=== PATIENT | female | born 1950 | race African-American/Black ===

== ENCOUNTER 2016-11-13 14:03 | Inpatient (IN) ==
[2016-11-13] MEDS ORDERED: NS 1,000 ML IV PRN (14:43)
[2016-11-13 16:46] LABS: BASO% 0.1 % (0.0-0.8); EOS# 0.01 X1000 (0.0-0.7); EOS% 0.1 % (0.0-10.0); HEMATOCRIT 41.8 % (37.0-47.0); IMM GRAN# 0.05 X1000 (0.0-0.04); IMM GRAN% 0.3 % (0.0-0.5); LYMPH# 1.04 X1000 (1.2-3.4); LYMPH% 5.9 % (20.5-51.1); MANUAL DIFF NEEDED? NO; MCH 31.9 PG (27-31); MCHC 33.5 g/dL (33-37); MCV 95.2 FL (81-99); MONO# 1.04 X1000 (0.11-0.59); MONO% 5.9 % (1.7-9.3); MPV 10.1 FL (7.4-10.4); NEUT% 87.7 % (42.2-75.2); PLT 322 X1000 (130-400); RBC 4.39 XMIL (4.2-5.4)
[2016-11-13 16:57] LABS: INR 1.04; PTT 28.5 Seconds (22.0-36.0)
[2016-11-13 17:11] LABS: AGAP 13; ALKALINE PHOSPHATASE 110 U/L (32-104); BUN 17 mg/dL (8-22); CALCIUM 10.5 mg/dL (8.8-10.2); CHLORIDE 86 mmol/L (98-107); COSMO 265; GOT 30 U/L (10-30); GPT 19 U/L (10-36); POTASSIUM 3.5 mmol/L (3.5-5.1); SODIUM 130 mmol/L (136-145); TCO2 31 mmol/L (25-35); TOTAL BILIRUBIN 0.36 mg/dL (0.20-1.00)
[2016-11-13] MEDS ORDERED: ZOFRAN IV ONE ×2 (17:27→19:52)
[2016-11-13] MEDS ORDERED: NS 1,000 ML IV ONE (19:30)
[2016-11-13] MEDS ORDERED: DULCOLAX PR ONE (19:56)
--- NOTE | 2016-11-13 21:07 | Diag Imaging Result Doc PS360 ---
EXAM: CT ABD/PELVIS W/ IV CONT ONLY HISTORY: EMesis TECHNIQUE: Dose reduction protocol COMPARISON: None. FINDINGS: There is a nonspecific 16 mm hypodense area in the mid right lobe of the liver. This may simply represent a hemangioma. Normal spleen, pancreas, and right adrenal gland. There is thickening to the left adrenal gland. There is a small amount of scarring to each kidney. No solid renal mass. No hydronephrosis. There is a PEG tube within the stomach. Normal gallbladder. There is a 7.7 cm stool ball in the rectum. Prominent stool in the mid and distal colon. Normal appendix. No abscess. No free air. No abdominal aortic aneurysm. The urinary bladder is distended and appears normal. No pelvic mass. The uterus is been removed. IMPRESSION: 1.Fecal impaction 2.Nonspecific liver lesion which may simply be a hemangioma 3.Hysterectomy Electronically signed by Carl Fernandez 11/13/2016 9:04 PM
[2016-11-13] MEDS ORDERED: ATIVAN IV ONE (21:27)
--- NOTE | 2016-11-13 22:02 | HISTORY AND PHYSICAL ---
PRIMARY CARE PROVIDER: Dr. Campo. CHIEF COMPLAINT: Per the sons, vomiting perhaps with blood in it. HPI: This is a unfortunate 66-year-old female who is now lying in the ER stretcher. She is nonverbal and does not follow commands related to a CVA that she had roughly 10 years ago. She is now noted to have contractures and lives at [facility]. Family members are at bedside. The son states that the snf called them today stating that she was throwing up blood. On arrival to the emergency room, laboratory data was obtained which showed a normal hemoglobin and hematocrit. A CT of her abdomen and pelvis showed a fecal impaction. Her emesis was tested and tested positive for blood. She will be admitted for further evaluation and treatment. PAST MEDICAL HISTORY: 1. Mostly per old medical records. Some contributed by the family. 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 She now is contracted and bedbound. 2. Diabetes mellitus type 2. 3. Hypothyroidism. 4. Hyperlipidemia. 5. Pneumonia. SURGICAL HISTORY: 1. Throat surgery. 2. Hysterectomy. SOCIAL HISTORY: Patient lives at [facility]. She has for roughly the past 10 years since her CVA. Family denies alcohol, tobacco or illicit drug use or abuse. FAMILY HISTORY: Was attempted to be obtained but as noted above the patient was unable to tell any chronic health issues and the son stated he was unaware of any chronic illness in the family. ALLERGIES: No known drug allergies. HOME MEDICATIONS: 1. Sertraline 50 mg G-tube daily. 2. Levothyroxine 50 mcg G-tube daily. 3. Famotidine 40 mg G-tube daily. 4. Aspirin 81 mg G-tube daily. 5. Lactulose 30 mL per G-tube daily. 6. Fentanyl Duragesic patch 25 mcg topically every 3 days. 7. Calmoseptine ointment 1 application topically p.r.n. 8. Tylenol 650 G-tube q.4 p.r.n. 9. Calcium vitamin D combo 1 G-tube daily. 10. Vitamin D3 1000 units G-tube b.i.d. 11. Liquid protein fortifier 30 mL per G-tube daily. REVIEW OF SYSTEMS: Fourteen point review of systems could not be obtained related to patient's condition. Pertinent positives for admission was listed above in the HPI. PHYSICAL EXAMINATION: VITAL SIGNS: Pulse 125, respirations 24, blood pressure 122/71, oxygen saturation 99% on 2 L nasal cannula. GENERAL: Unfortunate 66-year-old female who is bedbound. Does not follow commands. Is nonverbal and is contracted. HEENT: Head is atraumatic, normocephalic. Pupils equal, round, reactive to light. Extraocular eye movement could not be tested as patient will not follow commands. Sclerae is anicteric. Conjunctivae is pink. Oral mucosa is dry. NECK: Supple. No JVD. Trachea is midline. CARDIAC: S1-S2 appreciated. Regular rhythm. Sinus tachycardia on monitor. No murmurs, gallops, rubs. LUNGS: Decreased bilaterally. Poor inspiratory effort. No rhonchi, wheezes or rales. Symmetrical rise and fall respirations. ABDOMEN: Soft, nondistended, nontender. Bowel sounds are hypoactive all 4 quadrants. No pulsatile mass. No organomegaly. EXTREMITIES: No clubbing, cyanosis, or edema. 2+ pedal pulses bilaterally. NEUROLOGICAL: Cranial nerves could not be tested related to the patient's baseline mentation. She does not follow commands. She is nonverbal secondary to a previous CVA. SKIN: Warm, dry, intact. Appropriate for color. No acute lesions or rash. DIAGNOSTIC DATA: CT of the abdomen and pelvis showed a fecal impaction. Chest x-ray showed a right elevated hemidiaphragm otherwise NAD. LABORATORY DATA: WBC 17.57, hemoglobin 14, hematocrit 41.8, platelet count 322,000. Coagulations within normal limits. Sodium 130, potassium 3.5, chloride 86, carbon dioxide 31, BUN 17, creatinine 0.7, glucose 145. ASSESSMENT AND PLAN: 1. Fecal impaction. The patient is bedbound from snf. A suppository was given in the emergency room. Will also place an order for a soapsuds enema. GI will also be consulted. 2. Upper gastrointestinal bleed. The patient was noted as having coffee ground emesis at the snf. It was occult positive when tested in the emergency room. Again GI will be consulted. 3. Fluid volume depletion. The patient was given a liter bolus in the emergency room. Will continue normal saline at 125 mL an hour. 4. Mild hyponatremia. This should correct with normal saline administration. Will monitor labs. 5. Leukocytosis likely react reactive related to patient's constipation. Blood cultures have been sent and are pending. A urinalysis is pending. Will treat appropriately if either positive at this time. Will not give antibiotics. 6. Nausea and vomiting. Zofran 4 mg IV q.4 hours as needed. 7. Diabetes mellitus type 2. The patient was noted as being mildly hyperglycemic however she does not appear to be. Will put on fingerstick blood sugar before meals and at bedtime. She is NPO at this time so the blood sugars will not be treated unless greater than 200. Further recommendations per patient clinical course. Dictated by JOURDAN Caballero for Jed Beck MD cc: MD Jed Ernandez MD
[2016-11-13] MEDS ORDERED: ZOFRAN IV PRN (22:10)
[2016-11-13] MEDS ORDERED: CALMOSEPTINE OINTMENT TOP PRN (22:10)
[2016-11-13] MEDS: SODIUM CHLORIDE 0.9% INJ SCH (23:21)
[2016-11-13] MEDS: PROTONIX IV SCH (23:22)
[2016-11-14] MEDS ORDERED: TYLENOL PR PRN (02:08)
[2016-11-14] MEDS ORDERED: OFIRMEV 1000 MG/ISOTONIC SOLN 1,000 MG/100 ML BOTTLE IV ONE (02:34)
[2016-11-14 03:11] LABS: URINE CULTURE NEEDED? NO; URINE MICRO REVIEW NEEDED? NO; URINE SOURCE CATH
[2016-11-14 03:15] LABS: BILIRUBIN URINE NEGATIVE (NEGATIVE); BLOOD URINE NEGATIVE (NEGATIVE); COLOR YELLOW; GLUCOSE URINE NEGATIVE (NEGATIVE); LEUKOCYTES URINE NEGATIVE (NEGATIVE); NITRITE URINE NEGATIVE (NEGATIVE); PROTEIN URINE TRACE mg/dL (NEGATIVE); SP GRAVITY URINE 1.034; TURBIDITY URINE CLEAR (CLEAR); UROBILINOGEN URINE NORMAL (NORMAL)
[2016-11-14 03:17] LABS: UR EPITHELIAL CELLS <10 /HPF (<10); URINE BACTERIA NEGATIVE /HPF; URINE RBC <10 /HPF (<10); URINE WBC <10 /HPF (<10)
[2016-11-14 06:00] LABS: MANUAL DIFF NEEDED? NO
[2016-11-14 06:05] LABS: BASO% 0.3 % (0.0-0.8); HEMATOCRIT 38.1 % (37.0-47.0); HEMOGLOBIN 12.8 g/dL (12.0-16.0); IMM GRAN# 0.03 X1000 (0.0-0.04); IMM GRAN% 0.3 % (0.0-0.5); LYMPH# 1.17 X1000 (1.2-3.4); LYMPH% 10.3 % (20.5-51.1); MCH 32.1 PG (27-31); MCHC 33.6 g/dL (33-37); MCV 95.5 FL (81-99); MONO# 1.08 X1000 (0.11-0.59); MONO% 9.5 % (1.7-9.3); MPV 9.9 FL (7.4-10.4); NEUT% 79.6 % (42.2-75.2); PLT 290 X1000 (130-400); RBC 3.99 XMIL (4.2-5.4)
--- NOTE | 2016-11-14 06:12 | Diag Imaging Result Doc PS360 ---
EXAM: CHEST-PORTABLE HISTORY: vomiting gi bleed TECHNIQUE: Portable COMPARISON: None. FINDINGS: The lungs are well expanded. Heart is not enlarged. The vessels are not distended. No pneumonia. No pleural effusions identified. IMPRESSION: Negative chest. Electronically signed by Carl Fernandez 11/14/2016 6:09 AM
[2016-11-14] MEDS: HUMALOG SUBQ SCH ×4 (06:17→20:51)
[2016-11-14] MEDS: SYNTHROID GT SCH ×2 (06:17→06:22)
[2016-11-14 06:23] LABS: AGAP 14; BUN 18 mg/dL (8-22); CALCIUM 9.3 mg/dL (8.8-10.2); CHLORIDE 98 mmol/L (98-107); COSMO 279; POTASSIUM 3.3 mmol/L (3.5-5.1); SODIUM 138 mmol/L (136-145); TCO2 26 mmol/L (25-35)
[2016-11-14] MEDS: PROTONIX IV SCH ×2 (09:45→20:25)
[2016-11-14] MEDS: SODIUM CHLORIDE 0.9% INJ SCH ×2 (09:45→20:26)
[2016-11-14] MEDS: LACTULOSE PO SCH (09:45)
[2016-11-14] MEDS ORDERED: ATIVAN IV PRN (10:29)
--- NOTE | 2016-11-14 11:03 | PROGRESS NOTE ---
DATE: 11/14/2016 SUBJECTIVE: Ms. Begum is a 66-year-old patient, resident of [facility], admitted with coffee-grounds emesis. The patient is not able to give any history. History gotten from admission history and physical and ER records. The patient had a PEG tube, history of CVA, dysphagia, expressive aphasia, significant flexion contracture, very osteoporotic bones which break very easily. Admission history and physical noted. Since admission the patient is doing fair. At times patient is tachycardic. No high-grade fever or chills. No nausea or vomiting. The patient did have some bowel movement. The patient does not seem to be in any distress. OBJECTIVE: Vital signs: Noted. Neck: Supple. No JVD. Lungs: Bibasilar crepitation. Abdomen: PEG tube is in place. Abdomen is soft. Extremities: Significant flexion contracture both upper and lower limbs. No cyanosis, clubbing. CLEANING TECHNICIAN: Alert, awake. Uncooperative for detailed exam. LAB DATA: Done this morning, WBC count 11.34, hemoglobin 12.8, hematocrit 38.1, platelet count was 290,000. The patient's potassium was 3.3, sodium 138, blood sugar 123. TSH was 2. Urinalysis results reviewed. CONSIDERATION: 1. Upper gastrointestinal bleed. Patient's hemoglobin is stable. Her actual hemoglobin is around 11-12. 2. Patient does have gastritis. 3. History of cerebrovascular accident. 4. Hypothyroidism. 5. Metabolic syndrome. 6. Significant flexion contracture. 7. Osteoporosis. 8. Chronic pain. 9. Found to have hypokalemia. PLAN: I am going to supplement potassium. We are treating her constipation. CT scan of the abdomen and pelvis results reviewed, which revealed fecal impaction, hemangioma, and hysterectomy. Overall plan discussed with the son. We are waiting for GI evaluation. cc: Wiflredo Campo MD
[2016-11-14] MEDS: NS 1,000 ML IV PRN (15:16)
[2016-11-14] MEDS: POTASSIUM CHLORIDE 10% LIQUID PO SCH (20:25)
[2016-11-15] MEDS: NS 1,000 ML IV PRN (02:48)
[2016-11-15] MEDS: SYNTHROID GT SCH (06:16)
[2016-11-15] MEDS: HUMALOG SUBQ SCH ×3 (06:17→20:24)
[2016-11-15 06:29] LABS: MANUAL DIFF NEEDED? NO
[2016-11-15 06:35] LABS: BASO% 0.4 % (0.0-0.8); EOS# 0.15 X1000 (0.0-0.7); EOS% 1.4 % (0.0-10.0); HEMATOCRIT 35.7 % (37.0-47.0); HEMOGLOBIN 11.8 g/dL (12.0-16.0); IMM GRAN# 0.02 X1000 (0.0-0.04); IMM GRAN% 0.2 % (0.0-0.5); LYMPH# 1.33 X1000 (1.2-3.4); LYMPH% 12.4 % (20.5-51.1); MCH 32.4 PG (27-31); MCHC 33.1 g/dL (33-37); MCV 98.1 FL (81-99); MONO% 9.3 % (1.7-9.3); MPV 10.2 FL (7.4-10.4); NEUT% 76.3 % (42.2-75.2); PLT 253 X1000 (130-400); RBC 3.64 XMIL (4.2-5.4)
[2016-11-15 06:51] LABS: AGAP 11; ALBUMIN 3.2 g/dL (3.5-5.0); ALKALINE PHOSPHATASE 78 U/L (32-104); BUN 12 mg/dL (8-22); CALCIUM 8.3 mg/dL (8.8-10.2); CHLORIDE 104 mmol/L (98-107); COSMO 276; GOT 29 U/L (10-30); GPT 16 U/L (10-36); SODIUM 138 mmol/L (136-145); TCO2 23 mmol/L (25-35); TOTAL PROTEIN 6.6 g/dL (6.3-8.3)
--- NOTE | 2016-11-15 07:14 | PROGRESS NOTE ---
DATE: 11/15/2016 SUBJECTIVE: Ms. Begum is doing fair. Not able to communicate. According to the nurse, patient had a good night. Her heart rate was stable. No fever or chills. No nausea or vomiting. OBJECTIVE: Vital Signs: Vital signs noted. Lungs: Few basal crepitations. CVS: S1 and S2 heard. Abdomen: Soft, scaphoid. PEG tube is in place. Extremities: Patient has significant flexion contractures of both upper limbs and lower limbs. CEMETERY WORKER: Alert, awake. Uncooperative for detailed exam. Lab Data: Done this morning, WBC count 10.71, hemoglobin 11.8, hematocrit 35.7, platelet count was 253,000. Electrolytes fairly benign. Potassium was 4, BUN 12, creatinine 0.5. Magnesium checked yesterday and was 1.7. ASSESSMENT AND PLAN: 1. Patient admitted with possible gastritis. 2. Patient does have problem with her percutaneous endoscopic gastrostomy tube. 3. Significant flexion contractures. 4. Constipation. Rn Relief Charge evaluated patient. 5. Hypokalemia, improved. We will continue current treatment and close observation. cc: Wilfredo Campo MD
--- NOTE | 2016-11-15 08:07 | EKG Report ---
Test Performed on : 11/13/2016 9:22:09 PM Test Reason : No ORder in [email or web address] Blood Pressure : / mmHG Vent. Rate : 156 BPM Atrial Rate : 156 BPM P-R Int : 094 ms QRS Dur : 062 ms QT Int : 320 ms P-R-T Axes : 041 -06 075 degrees QTc Int : 515 ms Undetermined rhythm Low voltage QRS Nonspecific ST abnormality Abnormal ECG When compared with ECG of 06-JUN-2011 23:57, Current undetermined rhythm precludes rhythm comparison, needs review Nonspecific T wave abnormality, improved in Inferior leads T wave inversion no longer evident in Anterolateral leads Unconfirmed Result
[2016-11-15] MEDS: LACTULOSE PO SCH (09:56)
[2016-11-15] MEDS: POTASSIUM CHLORIDE 10% LIQUID PO SCH ×2 (09:56→20:15)
[2016-11-15] MEDS: PROTONIX IV SCH ×2 (09:56→20:15)
--- NOTE | 2016-11-15 11:53 | PROGRESS NOTE ---
DATE: 11/15/2016 SUBJECTIVE: The patient is stable. She is noncommunicative, but she is alert and appears to be at her baseline. OBJECTIVE: Vital Signs: Temperature, T-max 99.9 degrees. Pulse 105, blood pressure 100/58, respiratory rate 20, and O2 saturation on room air 98% to 100%. Cardiovascular: RRR. Lungs: CTA. Abdomen: Nondistended. Active bowel sounds. PEG tube in place in the left upper quadrant without signs of infection. Extremities: No lower extremity edema. Contractures prominent of her hands and arms. IV in place in the right foot. Neurologic: Baseline, looks about, but has no communication. DIAGNOSTIC DATA: White count 10.7, down from 17 on admission; hemoglobin 11.8, platelets 253,000. CMP unremarkable with BUN 12, creatinine 0.5, potassium 4, sodium 138, blood sugar 131. Gastroccult positive on 11/13/2016. She is Hemoccult negative on that date, and blood cultures x2 remain negative after 48 hours. ASSESSMENT: 1. Hematemesis. 2. Fecal impaction. 3. History of cerebrovascular accident with chronic contractures and nonverbal state/bed bound. 4. Type 2 diabetes mellitus. 5. Hypothyroidism. 6. Hyperlipidemia. PLAN: Continue IV fluids. The patient to have EGD and colonoscopy per Dr. Sharma tomorrow. Continue to monitor blood sugars closely. The patient on IV PPI in the form of Protonix 40 mg every 12 hours. cc: MD Wilfredo Danielle MD
--- NOTE | 2016-11-15 12:25 | PROGRESS NOTE ---
DATE: 11/15/2016 SUBJECTIVE: The patient is looking fine, still nonverbal. Family at bedside. Patient is tolerating the tube feedings without any nausea and vomiting. We will increased to normal if she tolerates. OBJECTIVE: Vital Signs: Pulse of 90, respirations 18, blood pressure 120/70, O2 saturation 99% on room air. HEENT: Mild conjunctival pallor present. Neck: Supple. Trachea midline. Heart: Normal first and second heart sounds. Lungs: Clear. Abdomen: The PEG tube site still is getting pulled. I will need to replace it. Extremities: Evidence of CVA present. Laboratory Data: Hematocrit did drop to 38 which is a slight drop. White count has come down to 11.34. Potassium is low at 3.3. IMPRESSION AND PLAN: 1. Nausea and vomiting, most likely secondary to either urosepsis and/or G-tube displacement. 2. Percutaneous endoscopic gastrostomy tube displacement, is scheduled for EGD with replacement. 3. Questionable impaction. We will do a flexible sigmoidoscopy. 4. History of cerebrovascular accident. 5. Hypothyroidism. 6. Metabolic syndrome. 7. Chronic pain. 8. As all the electrolytes are being corrected, I will replace the tube and make sure patient does not have any impaction in the morning. cc: MD Wilfredo Hernandez MD
--- NOTE | 2016-11-15 13:45 | CONSULTATION ---
DATE OF CONSULTATION: 11/15/2016 REASON FOR CONSULTATION: Hematemesis. HISTORY OF PRESENT ILLNESS: A 66-year-old lady, nonverbal, secondary to CVA had a PEG tube and had nausea and vomiting. Throwing up some coffee-ground emesis and but hemoglobin and hematocrit are normal. CT of the abdomen showed fecal impaction and emesis was tested which was heme positive. PAST MEDICAL HISTORY: 1. CVA 10 years ago. 2. Diabetes type 2. 3. Hypothyroidism. 4. Hyperlipidemia. 5. Pneumonia. SURGICAL HISTORY: 1. Throat surgery. 2. Hysterectomy. 3. PEG tube placement. SOCIAL HISTORY: Lives at [facility]. She has no previous history of alcohol, tobacco or drug use. FAMILY HISTORY: Negative. ALLERGIES: None. HOME MEDICATIONS: [facility]: 1. Sertraline 50 daily. 2. Levothyroxine 50 mcg daily. 3. Famotidine 40 mg daily. 4. Aspirin 81 daily. 5. Lactulose 30 daily. 6. Duragesic Patch 25 tropical every 3 days. 7. Tylenol as needed. 8. Calcium, vitamin D, and nutrition liquid protein 4-5 L at 30 mL per G-tube daily. REVIEW OF SYSTEMS: Fourteen point system was attempted and could not be taken. PHYSICAL EXAMINATION: General: Reveals this unfortunate lady lying in bed, no ectasia or acute distress. She has family at bedside. Pulse 100, respirations 20, blood pressure 120/71, O2 saturation 99% on 2 L. General: Lying in bed. She is actually opening her eyes and looking at me. HEENT: Atraumatic. Normocephalic. PERRLA. No conjunctival pallor or scleral icterus. Neck: Supple. Trachea in the midline. Heart: Normal first and second heart sounds. Lungs: Clear although generalized decreased breath sounds. Abdomen: Soft, not distended. She has a PEG tube. I did notice the all the way moved, so this was dislodged. This may be causing the nausea and vomiting. This was pulled back and re-anchored but it may need to be replaced. Neurological: Evidence of focal neurological deficit present. DIAGNOSTIC DATA: CT as above. Lab data: White count 33834. Hemoglobin and hematocrit normal. Glucose 145. IMPRESSION AND PLAN: 1. Nausea and vomiting with history of hematemesis, some of this may be due to G-tube migration. Her hemoglobin and hematocrit are normal. She is getting hydration. We will review after the hydration. 2. PEG tube displacement, corrected. She needs and new NG tube. I talked to the nurse about this. 3. Dehydration being corrected. 4. Possible urosepsis, has been covered with antibiotics. 5. Fecal impaction. I could not feel anything but when we replace the PEG tube we will probably do a proctosigmoidoscopy. 6. Diabetes mellitus. We will see what the hemoglobin and hematocrit is and we will plan on doing an upper endoscopy, G- tube replacement and possibly a flexible sigmoidoscopy to rule out any high impactions. cc: MD Wilfredo Hernandez MD
[2016-11-15] MEDS: SODIUM CHLORIDE 0.9% INJ SCH (20:15)
[2016-11-16] MEDS: NS 1,000 ML IV PRN (02:52)
[2016-11-16] MEDS ORDERED: ROCEPHIN 1 GM/NS 1 GM/50 ML IVPB IV SCH (06:30)
[2016-11-16] MEDS: HUMALOG SUBQ SCH ×4 (06:38→21:53)
[2016-11-16] MEDS: DURAGESIC 25 MICROGM/HR PATCH TD SCH (06:38)
[2016-11-16] MEDS: SYNTHROID GT SCH (06:39)
--- NOTE | 2016-11-16 06:45 | PROGRESS NOTE ---
DATE: 11/16/2016 SUBJECTIVE: Ms. Begum is doing fair. Not able to communicate. She had low-grade fever around 100.6. No significant cough or expectoration. No documented nausea or vomiting. OBJECTIVE: Vital Signs: Vital signs noted. Neck: Is supple. No JVD. Lungs: Bibasilar crepitations. Heart: S1 and S2 heard. Abdomen: Soft, scaphoid. PEG tube is in place. Extremities: Patient does have flexion contracture both upper and lower limbs. BIOMATERIALS ENGINEER: The patient is awake, uncooperative for detailed exam. CONSIDERATION: Patient admitted with coffee-ground emesis. She developed fever, possibility of aspiration pneumonia cannot be ruled out. I am going to start the patient on IV antibiotics. Continue rest of the treatment. We will do septic workup today. Check appropriate labs. OVERALL PLAN: I did talk to patient's son about her condition, prognosis and plan. He understood and agreed. Her other problem includes gastritis. We do have problem with her PEG tube at times, fecal impaction and constipation. Patient is scheduled to have EGD and sigmoidoscopy. Hypothyroidism. cc: Wilfredo Campo MD
[2016-11-16 06:58] LABS: BASO% 0.2 % (0.0-0.8); EOS# 0.02 X1000 (0.0-0.7); EOS% 0.2 % (0.0-10.0); HEMATOCRIT 34.3 % (37.0-47.0); HEMOGLOBIN 11.3 g/dL (12.0-16.0); IMM GRAN# 0.03 X1000 (0.0-0.04); IMM GRAN% 0.2 % (0.0-0.5); LYMPH% 4.7 % (20.5-51.1); MANUAL DIFF NEEDED? YES; MCH 31.9 PG (27-31); MCHC 32.9 g/dL (33-37); MCV 96.9 FL (81-99); MONO# 0.67 X1000 (0.11-0.59); MONO% 5.3 % (1.7-9.3); MPV 9.6 FL (7.4-10.4); NEUT% 89.4 % (42.2-75.2); PLT 232 X1000 (130-400); RBC 3.54 XMIL (4.2-5.4)
[2016-11-16 07:03] LABS: BANDS 2 % (0-1); LYMPHS 8 % (21-51)
--- NOTE | 2016-11-16 07:27 | Diag Imaging Result Doc PS360 ---
EXAM: CHEST-PORTABLE HISTORY: fever TECHNIQUE: AP semiupright portable at 0625 COMMENT: Normal chest. IMPRESSION: Normal chest. Electronically signed by Santos Canada 11/16/2016 7:24 AM
[2016-11-16 07:51] LABS: AGAP 15; ALBUMIN 3.2 g/dL (3.5-5.0); ALKALINE PHOSPHATASE 77 U/L (32-104); BUN 11 mg/dL (8-22); CALCIUM 8.6 mg/dL (8.8-10.2); CHLORIDE 102 mmol/L (98-107); COSMO 272; GOT 28 U/L (10-30); GPT 16 U/L (10-36); MAGNESIUM 1.7 mg/dL (1.5-2.7); SODIUM 136 mmol/L (136-145); TCO2 19 mmol/L (25-35); TOTAL BILIRUBIN 0.47 mg/dL (0.20-1.00); TOTAL PROTEIN 6.5 g/dL (6.3-8.3)
[2016-11-16] MEDS: LACTULOSE PO SCH (09:55)
[2016-11-16] MEDS: PROTONIX IV SCH ×2 (09:55→21:52)
[2016-11-16] MEDS: POTASSIUM CHLORIDE 10% LIQUID PO SCH ×2 (09:56→21:53)
[2016-11-16] MEDS ORDERED: NS ONE (12:33)
[2016-11-16] MEDS ORDERED: ZOSYN ONE (12:33)
[2016-11-16] MEDS: ZOSYN 3.375 GM/NS 3.375 GM/50 ML IVPB IV SCH ×2 (13:00→17:50)
[2016-11-16 17:53] LABS: URINE MICRO REVIEW NEEDED? NO; URINE SOURCE CATH
[2016-11-16] MEDS ORDERED: LACTULOSE PO ONE (17:53)
[2016-11-16 18:06] LABS: BILIRUBIN URINE NEGATIVE (NEGATIVE); BLOOD URINE NEGATIVE (NEGATIVE); COLOR YELLOW; GLUCOSE URINE NEGATIVE (NEGATIVE); LEUKOCYTES URINE LARGE (NEGATIVE); NITRITE URINE NEGATIVE (NEGATIVE); PROTEIN URINE TRACE mg/dL (NEGATIVE); SP GRAVITY URINE 1.016; TURBIDITY URINE HAZY (CLEAR); UROBILINOGEN URINE NORMAL (NORMAL)
[2016-11-16 18:07] LABS: UR EPITHELIAL CELLS >10 /HPF (<10); URINE BACTERIA 2+ /HPF; URINE CULTURE NEEDED? YES; URINE RBC <10 /HPF (<10); URINE WBC TNTC /HPF (<10)
[2016-11-16] MEDS: SODIUM CHLORIDE 0.9% INJ SCH (21:52)
[2016-11-17] MEDS: ZOSYN 3.375 GM/NS 3.375 GM/50 ML IVPB IV SCH ×5 (01:01→18:46)
[2016-11-17] MEDS: SYNTHROID GT SCH (06:06)
[2016-11-17] MEDS: HUMALOG SUBQ SCH ×3 (06:07→18:46)
--- NOTE | 2016-11-17 07:19 | PROGRESS NOTE ---
DATE: 11/17/2016 SUBJECTIVELY: Ms. Begum and is doing fair. The patient had upper GI endoscopy, and change of PEG tube done yesterday. The patient tolerated procedure well. The patient had her PEG tube changed yesterday by repairer recreational vehicle. She tolerated procedure well. The patient is still constipated. I did rectal exam and removed some of fecal impaction. No fever or chills. The patient is not communicating. OBJECTIVE: Vital Signs: Her vital signs are noted. Neck: Supple. No JVD. Lungs: Bibasilar crepitations. Heart: S1 and S2 heard. Abdomen: Soft, scaphoid. PEG tube is in place. Extremities: The patient does have flexion contracture of upper and lower limbs. Rectal: I did rectal exam. There was formed to hard stool, some of which I removed manually. OPERATIONS MGR: Alert, awake. Not communicating. DATA: I repeated blood work yesterday. Patient did have leukocytosis with left shift. Patient was started on IV antibiotics. Electrolytes were fairly benign. BUN 11, creatinine 0.5. Urinalysis did reveal large leukocytes, too numerous to count WBC and 2+ bacteria. Urine culture is pending. I also repeated blood culture. Did another chest x-ray and it was normal chest. ASSESSMENT AND PLAN: I did talk to patient's son about the patient's condition. We are going to watch her today. Take GI opinion for her constipation. Patient is getting lactulose which will continue for her constipation. Continue rest of the medication and close observation. Her problems include: 1. Gastritis. 2. Fecal impaction. 3. Chronic pain. 4. History of cerebrovascular accident. 5. Hypothyroidism. 6. Fever. 7. Leukocytosis. 8. Urinary tract infection. I will repeat blood work again today. cc: Wilfredo Campo MD
[2016-11-17] MEDS: SODIUM CHLORIDE 0.9% INJ SCH (08:55)
[2016-11-17] MEDS: PROTONIX IV SCH ×2 (08:55→20:43)
[2016-11-17] MEDS: LACTULOSE PO SCH (08:55)
[2016-11-17] MEDS: POTASSIUM CHLORIDE 10% LIQUID PO SCH ×2 (08:55→20:43)
[2016-11-17 14:14] LABS: MANUAL DIFF NEEDED? NO
[2016-11-17 14:25] LABS: BASO% 0.2 % (0.0-0.8); EOS# 0.05 X1000 (0.0-0.7); EOS% 0.4 % (0.0-10.0); HEMATOCRIT 34.5 % (37.0-47.0); HEMOGLOBIN 11.3 g/dL (12.0-16.0); IMM GRAN# 0.02 X1000 (0.0-0.04); IMM GRAN% 0.2 % (0.0-0.5); LYMPH# 1.31 X1000 (1.2-3.4); LYMPH% 11.5 % (20.5-51.1); MCHC 32.8 g/dL (33-37); MCV 97.7 FL (81-99); MONO# 0.73 X1000 (0.11-0.59); MONO% 6.4 % (1.7-9.3); MPV 9.8 FL (7.4-10.4); NEUT% 81.3 % (42.2-75.2); PLT 220 X1000 (130-400); RBC 3.53 XMIL (4.2-5.4)
[2016-11-17] MEDS: NS 1,000 ML IV PRN (14:27)
[2016-11-17 14:45] LABS: AGAP 15; ALBUMIN 3.2 g/dL (3.5-5.0); ALKALINE PHOSPHATASE 72 U/L (32-104); BUN 12 mg/dL (8-22); CALCIUM 8.6 mg/dL (8.8-10.2); CHLORIDE 103 mmol/L (98-107); COSMO 272; GOT 25 U/L (10-30); GPT 14 U/L (10-36); POTASSIUM 4.6 mmol/L (3.5-5.1); SODIUM 136 mmol/L (136-145); TCO2 18 mmol/L (25-35); TOTAL BILIRUBIN 0.34 mg/dL (0.20-1.00); TOTAL PROTEIN 6.4 g/dL (6.3-8.3)
--- NOTE | 2016-11-17 14:54 | PROGRESS NOTE ---
DATE: 11/17/2016 SUBJECTIVE: Patient is currently resting in bed. She is nonverbal but she is awake. She had a PEG tube placement done yesterday by Dr. Sharma. She is on 30 mL/hour of PEG tube feedings. She continues to be constipated. She had a digital rectal disimpaction done this morning with Dr. Campo. She still has not had any bowel movements. She had been passing flatus. She is on lactulose twice daily. She has no documented history of fevers, rigors, or chills. No nausea or vomiting per the nursing reports. OBJECTIVE: Vital signs: Temperature 99.7 degrees, pulse rate of 130, respiratory rate 20, blood pressure 140/81, saturating 92% on 3 via nasal cannula. Her temperature has been going up. T-max was 100.6 degrees yesterday. General appearance: Moderately built, moderately nourished, lying in bed, awake but nonverbal secondary to CVA. HEENT: Pale conjunctivae. No icterus. Neck: Supple. Abdomen: PEG tube in place. No guarding. No rebound. Bowel sounds are present but are hypoactive. Extremities: No cyanosis, clubbing. Neurologic: She is awake but nonverbal. LABS: Her blood glucose is 88. Her white count yesterday was 12.69. Hemoglobin and hematocrit were 11.3 and 34.3, platelet count of 232,000. Her UA was positive for a UTI. Urine culture was suggesting more incubation is required. Blood culture x2 done yesterday have been pending. She is on Zosyn which was started yesterday. IMPRESSION AND PLAN: 1. Coffee-ground emesis and nausea and vomiting which has now resolved. She is status post PEG tube placement yesterday by Dr. Sharma. She is being monitored by the nutrition team for PEG tube feedings. 2. Constipation. Status post distal manual disimpaction by Dr. Campo. Will continue on lactulose twice daily. We will start on soapsuds enema 2 now and then once at bedtime daily. 3. We will continue on gastrointestinal prophylaxis, Protonix. 4. She will continue aspiration precautions. 5. Tachycardia. Per the primary care team. I instructed the nurse to call Dr. Campo for further workup. 6. Above plan was discussed with the patient and nurse at the bedside. All questions were answered. cc: MD Wilfredo Cadena MD
--- NOTE | 2016-11-17 15:47 | PROGRESS NOTE ---
DATE: 11/16/2016 SUBJECTIVE: The patient is doing fair. I inspected the G tube. It is again getting pulled into the antrum. There is only 1 cm of the tube left at the bifurcation of the feeding site and the site. She needs a replacement. OBJECTIVE: Vital Signs: Stable as noted. Neck: Supple. Lungs: Basil crepitations. Heart: S1 and S2. Abdomen: Soft. G-tube is not well located as above. Extremities: Flexion contractures. TOOLMAKER HELPER: Non communication. LABORATORY DATA: Hematocrit stable at the lower level at admission. She does have UTI. IMPRESSION AND PLAN: 1. Gastritis. 2. Nausea and vomiting. Possibly hematemesis from displaced gastrostomy tube. 3. Chronic pain. 4. Cerebrovascular accident. 5. Hypothyroidism. 6. Fever and leukocytosis secondary to urinary tract infection. PLAN: As far as GI is concerned the hematocrit is stable. She does have some bowel movement but she does have an impaction. Continue the lactulose. We will increase the lactulose to twice a day. I took the G tube out and G tube is replaced at bedside. A new tube was placed and showed the nurse where it should be and showed the family where it should be. I think from GI standpoint she is stable and we will give lactulose until she has a good bowel movement. cc: MD Wilfredo Hernandez MD
--- NOTE | 2016-11-17 15:51 | EKG Report ---
Test Performed on : 11/17/2016 3:25:50 PM Test Reason : Intermittent tachycardia at rest Blood Pressure : / mmHG Vent. Rate : 120 BPM Atrial Rate : 120 BPM P-R Int : 136 ms QRS Dur : 058 ms QT Int : 332 ms P-R-T Axes : 053 -26 073 degrees QTc Int : 469 ms Sinus tachycardia. Low voltage QRS Borderline ECG When compared with ECG of 13-NOV-2016 21:22, Previous ECG has undetermined rhythm, needs review Confirmed by Saul Winston MD ([id number]) on 11/17/2016 4:18:50 PM
--- NOTE | 2016-11-17 18:38 | PROGRESS NOTE ---
DATE: 11/17/2016 SUBJECTIVE: Ms. Begum had a fever, diaphoresis, tachycardia. History part was limited. Patient was in distress. Family was concerned. OBJECTIVE: We did a Cardiology consult. Patient had workup done. Her D-dimer was elevated. Lab data done at 2 o'clock reviewed. C-reactive protein 29.88. CBC results noted. PHYSICAL EXAMINATION: Neck/Lungs: Bibasilar crepitation. Heart: S1 and S2. Tachycardia. Abdomen: Soft, scaphoid. Bowel sounds present. INTERNET SALES DIRECTOR: Alert, awake, uncooperative for detailed exam. CONSIDERATION: Fever could be due to UTI. The patient is on antibiotics. Urine culture result is pending. Blood culture so far negative. Her other problem includes history of CVA, hypothyroidism, and IDDM, expressive aphasia, dysphagia, osteoporosis. Overall prognosis fair to guarded. We will continue current treatment. cc: Wilfredo Campo MD
--- NOTE | 2016-11-17 20:08 | CONSULTATION ---
DATE OF CONSULTATION: 11/17/2016 CONSULTATION REQUESTED BY: Wilfredo Campo MD REASON FOR CONSULTATION: Tachycardia. CHIEF COMPLAINT: None. HISTORY: Ms. Begum is an unfortunate 66-year-old black female who is a half-way resident for the past 8 or 9 years. The patient presented to the hospital because of vomiting, presumably including blood. The patient received a CT scan of the abdomen upon presentation that shows fecal impaction. Because of the presence of a PEG tube, they consulted Gastroenterology, and Dr. Sharma has assessed the patient and has exchanged the PEG tube. His progress note indicates that he is recommending lactulose for her fecal impaction. He also believes that the patient may have a urinary tract infection. Her urinalysis as of November 16 indicates large amount of leukocytes, too numerous to count, and 2+ bacteria. A urine culture has been requested and is still pending. The patient has been tachycardic and that prompted this consultation. The patient's EKG done at 3:25 p.m. on November 17 shows sinus tachycardia without any ischemic changes. The patient is nonverbal. She has her eyes open and seems to move her head one way or the other, but she does not really respond consistently. She has contractures of the right upper extremity, left upper extremity, and both legs. 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 This was per the 07/29/2006 discharge summary. The patient had multiple admissions to the hospital between 2006, October 2006, December 2006, October 2007, July 2008, August 2008, May 2011. On each admission, there was some issue related to cerebrovascular accident and MRI's of the head indicating lacunar strokes. Eventually at some point they inserted a PEG tube and she was sent to a half-way where she has stayed until now. They have reported diagnoses of diabetes mellitus type 2, hypothyroidism, C. difficile colitis at some point, dysphagia, and recurrent urinary tract infections. PAST SURGICAL HISTORY: Apparently she has had hysterectomy and some type of throat surgery. HOME MEDICATIONS: Her half-way medications at the time of the present admission included: 1. Sertraline 50 mg daily. 2. Levothyroxine 50 mcg daily. 3. Lactulose 30 mL daily. 4. Fentanyl patches every 3 days. 5. Famotidine 40 mg daily. 6. Vitamin D3. 7. Aspirin 81 mg daily. 8. Menthol ointment. 9. Acetaminophen p.r.n. 10.Calcium carbonate p.r.n. REVIEW OF SYSTEMS: Review of systems is not obtainable. There are no family members around. FAMILY HISTORY: From review of chart, there is no significant family history. SOCIAL HISTORY: The patient is a half-way resident. She has children. She has no prior history of alcohol or tobacco use. PHYSICAL EXAMINATION: Vital signs: Blood pressure is 111/59. Pulse 125. Respirations 20. Temperature 99.9. General: She appears to be awake, however, she does not follow commands. She is in a fixed posture with right arm flexed, left arm semi extended. Both legs have contractures. She is lying on her right side. HEENT: Shows dry oral mucosa. Neck veins are not distended. I do not hear any cervical bruits. Chest: Shows diminished breath sounds at the bases without rales. Cardiovascular: Heart sounds are regular and rhythmic. I do not hear any gallops or murmurs. Abdomen: Nondistended. She has a PEG tube in place. Bowel sounds are diminished in intensity. Extremities: Show trace edema. Pulses are markedly diminished. She has significant muscle atrophy in the legs and also contracture in the upper extremities and lower extremities. Neurologic: Basically she is all contracted, does not follow commands, eyes are open. Her eyes are divergent. IMPRESSION: 1. Patient has become tachycardic and this is probably secondary to a urinary tract infection. 2. History of multiple lacunar strokes, now with advanced vascular dementia. 3. Fecal impaction. 4. Dysphagia secondary to multiple strokes. 5. Long-term percutaneous endoscopic gastrostomy tube insertion. 6. History of diabetes. 7. History of hypertension. RECOMMENDATIONS: From a cardiology viewpoint, I will obtain an echocardiogram to assess ejection fraction. If this study is unremarkable, then no further testing is required. This patient's tachycardia is probably secondary to systemic infection or systemic inflammatory process. I will check a C reactive protein and sedimentation rate to confirm that. The patient really has extremely poor quality of life. She has been in a half-way for the past 8 years, all contracted, unable to communicate. The patient should be referred to hospice care and for sure she should be made DNR. I will leave that up to the primary service to decide. Please feel free to call us should you have any questions or concerns. cc: MD Wilfredo Yanes MD
[2016-11-17] MEDS: LACTULOSE PEG SCH (20:43)
[2016-11-18] MEDS: HUMALOG SUBQ SCH ×6 (01:14→21:33)
[2016-11-18] MEDS: ZOSYN 3.375 GM/NS 3.375 GM/50 ML IVPB IV SCH ×4 (01:21→21:33)
[2016-11-18] MEDS: SYNTHROID GT SCH ×2 (05:48→06:00)
[2016-11-18 07:01] LABS: AGAP 17; BUN 12 mg/dL (8-22); CALCIUM 8.4 mg/dL (8.8-10.2); CHLORIDE 109 mmol/L (98-107); COSMO 282; POTASSIUM 5.1 mmol/L (3.5-5.1); SODIUM 142 mmol/L (136-145); TCO2 16 mmol/L (25-35)
--- NOTE | 2016-11-18 07:28 | PROGRESS NOTE ---
DATE: 11/18/2016 SUBJECTIVELY: Ms. Begum is doing fair. Yesterday, patient was diaphoretic, had tachycardia. Etiology not clear. We did a cardiology consult. Data Entry Processor following patient with us. The patient is getting lactulose twice a day. They recommended soap suds enema. Patient had watery stool. I am going to get abdominal x-ray for further evaluation. OBJECTIVE: Vital Signs: Her T-max yesterday was 99.9. Neck: Supple. The patient does have some flexion contracture. Lungs: Bibasilar crepitations. Heart: S1 and S2 heard. At times, tachycardic. Abdomen: Soft. PEG tube is in place. AIR INTERCEPT CONTROLLER SUPERVISOR: Patient is sleeping, but arousable. Uncooperative for detailed exam. The patient does have flexion contracture, both upper and lower limb. LAB DATA: Done yesterday reviewed. Leukocytosis count 11.41, hemoglobin 11.3, hematocrit 34.5. Electrolytes done today, potassium 5.1. Her CO2 was 16, chloride 109, magnesium was 2, phosphorus 2.6. Urinalysis did reveal too numerous to count WBC. CONSIDERATIONS/PLAN: I am going to repeat abdominal x-ray. Will do stool workup. Continue rest of the treatment. Overall patient is doing fair. I am going to watch patient today. If she continues to improve, we will plan discharging her to rehab tomorrow. Her problems include: 1. Urinary tract infection. 2. Constipated. 3. Gastritis. 4. Problem with PEG tube. 5. Chronic pain. 6. Hypothyroidism. 7. Fever. cc: Wilfredo Campo MD
[2016-11-18] MEDS: PROTONIX IV SCH ×2 (08:48→21:33)
[2016-11-18] MEDS: LACTULOSE PEG SCH (08:48)
[2016-11-18] MEDS: POTASSIUM CHLORIDE 10% LIQUID PO SCH (08:48)
--- NOTE | 2016-11-18 08:50 | Diag Imaging Result Doc PS360 ---
EXAM: ABDOMEN FLAT/UPRIGHT HISTORY: pain TECHNIQUE: AP upright and supine, two views COMMENT: The upright view does not include the pelvis or lower abdomen in its entirety. The chest is unremarkable in appearance. There is colonic and small bowel gas without evidence of obstruction. There is a gastrostomy tube. No evidence organomegaly or mass is present. There are no previous studies available for comparison. IMPRESSION: Nonspecific abdomen. Electronically signed by Santos [place] 11/18/2016 8:48 AM
--- NOTE | 2016-11-18 11:30 | PROGRESS NOTE ---
DATE: 11/18/2016 SUBJECTIVE: Patient is currently resting in bed. She is status post CVA. She is nonverbal. According to the nursing records, they lowered her tube feeds 20 mL/h. She has been moving her bowels. This morning, she had soft brown formed stool. She was getting soap suds at that time. She continues on MiraLAX twice daily. No documented fever or chills today. No nausea or vomiting, per the records. Residuals were positive on the PEG tube feedings. Nutrition is following the patient. PHYSICAL EXAMINATION: Vital Signs: Temperature 98.3 degrees, pulse rate of 87 , respiratory rate 14, blood pressure 100/77, saturating 100% on 3L nasal cannula. General Appearance: Thinly built, lying in bed, in no acute distress. HEENT: Mild pallor. No icterus. Neck: Supple. Abdomen: PEG tube in place. Softer abdomen. Tympanitic on percussion. No guarding or rebound. Bowel sounds are present. Extremities: No cyanosis or clubbing. Neurologic: She was sleeping today. LABORATORIES: Hemoglobin and hematocrit 11.3 and 34.5, white count of 11.41, and platelet count of 220,000. Sodium of 142, potassium 5.1, chloride 109, bicarbonate of 16, anion gap 17, BUN of 12, creatinine of 0.5, glucose of 99, calcium 8.4, phosphorus 2.6, and magnesium 2.0. CRP 29.88, total protein 6.4, albumin of 3.2. UA is positive and urine culture showed Gram -positive cocci. Speciation is pending. IMPRESSIONS AND PLAN: 1. Anemia, likely secondary to recent coffee-grounds emesis. Emesis has now resolved. Although she continues to have PEG tube residuals, I believe it could be secondary to immobility, constipation, and ongoing urinary tract infection. Nutrition is working along, helping manage the defeat. 2. Continue on aspiration precautions. 3. Constipation. We will continue on MiraLAX twice daily and some soapsuds enemas at bedtime. 4. Cardiology consult has been called for tachycardia, which was noted yesterday. 5. Gastrointestinal prophylaxis with PPIs. 6. Hypoalbuminemia. Albumin is 3.2. Continue to watch. 7. Urinary tract infection with Gram-positive cocci more than 100,000 on the urine culture. Await further speciation. 8. The above plan of care was discussed with the patient's nurse at bedside. All questions were answered. cc: MD Wilfredo Cadena MD MTDD
[2016-11-18] MEDS: NS 1,000 ML IV PRN (14:41)
--- NOTE | 2016-11-18 18:44 | ECHO REPORT ---
ORDER DATE: 11/17/2016 INTERPRETING PHYSICIAN: Dr. Núñez REQUESTING PHYSICIAN: CLINICAL INDICATIONS: A 66-year-old female with tachycardia, stroke, hypothyroidism. This study was technically difficult. M-Mode measurements could not be obtained from the parasternal windows. M-MODE MEASUREMENTS: Right ventricle: cm. Left ventricle end diastole: cm. Left ventricle end systole: cm. Posterior wall: cm. Interventricular septum: cm. Left atrium: cm. Aortic root: cm. SUMMARY OF 2-DIMENSIONAL IMAGING: The study was technically very limited. Left ventricular systolic function appears to be hyperdynamic. Ejection fraction is estimated visually at 75%. The right ventricle is small. The atria are not dilated. The aortic valve appears to be normal. There is a dynamic gradient across the outflow tract of the left ventricle reaching a maximum of 29 mmHg. This is attributed to the hyperdynamic left ventricle. It has nothing to do with aortic stenosis. The mitral valve looks normal. Color flow mapping unremarkable. The aortic valve shows no regurgitation. The tricuspid valve was suboptimally visualized. The pulmonic valve was not well visualized. There is no pericardial effusion, masses or thrombus. IMPRESSION: In summary, this echocardiographic study was extremely difficult. The left ventricular function is hyperdynamic. There is no evidence of any gross valvular abnormality. Clinical correlation recommended. cc: MD Wilfredo Yanes MD
[2016-11-18] MEDS: SODIUM CHLORIDE 0.9% INJ SCH (21:33)
[2016-11-19] MEDS: ZOSYN 3.375 GM/NS 3.375 GM/50 ML IVPB IV SCH ×2 (01:06→08:17)
[2016-11-19] MEDS: SYNTHROID GT SCH ×2 (05:38→06:25)
[2016-11-19] MEDS: DURAGESIC 25 MICROGM/HR PATCH TD SCH (05:39)
[2016-11-19] MEDS: HUMALOG SUBQ SCH ×2 (06:39→11:47)
[2016-11-19 07:59] LABS: AGAP 10; ALBUMIN 2.7 g/dL (3.5-5.0); BUN 8 mg/dL (8-22); CALCIUM 8.2 mg/dL (8.8-10.2); CHLORIDE 101 mmol/L (98-107); COSMO 264; SODIUM 133 mmol/L (136-145); TCO2 22 mmol/L (25-35)
[2016-11-19] MEDS: PROTONIX IV SCH (08:17)
[2016-11-19] MEDS: SODIUM CHLORIDE 0.9% INJ SCH (08:17)
--- NOTE | 2016-11-19 11:53 | DISCHARGE SUMMARY ---
ADMISSION DATE: 11/13/2016 DISCHARGE DATE: 11/19/2016 FINAL DISCHARGE DIAGNOSES: 1. Urinary tract infection. 2. Upper gastrointestinal bleed most likely due to gastritis. 3. Fecal impaction. 4. Clinical dehydration. 5. Leukocytosis. 6. Noninsulin-dependent diabetes mellitus. 7. Hypothyroidism. 8. History of cerebrovascular accident with flexion contracture of upper and lower limbs. 9. Dysphagia. 10. Hypokalemia. 11. Tachycardia. HOSPITAL COURSE: Ms. Begum is a 66-year-old, patient, resident of [facility], admitted with coffee-ground emesis. The patient also had leukocytosis. The patient was evaluated in the ER. The patient is aphasic; history part was limited. Initially, the patient was tachycardic. She also had low-grade fever. The patient was admitted; GI consult obtained. The patient was hydrated. Her urinalysis did reveal UTI. Dr. Sharma changed her PEG tube. We increased her lactulose. I did fecal disimpaction. Treated patient symptomatically. The patient had episode of tachycardia and diaphoresis. Cardiology consult obtained. Echocardiogram results reviewed. Considering her overall health and echocardiogram result they decided not to pursue further intervention. Overall patient received maximum benefit of hospitalization. Her fever improved. Heart rate improved. She started having bowel movements. She is tolerating her feeding well and I am planning to discharge her to rehab today. PHYSICAL EXAMINATION: Vital Signs: Her vital signs noted which are stable. Neck: Supple. No JVD. Lungs: Bilateral good air entry present. Cardiovascular: S1 and S2 heard. Abdomen: Soft, scaphoid. PEG tube is in place. TRANSPORT OPERATIONS INSPECTOR: Alert, awake, uncooperative for neurologic exam. 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 LABORATORY DATA: Revealed last WBC count 11.41, hemoglobin 11.3, hematocrit 34.5, platelet count 220,000. Potassium was 5.1. Chloride 109, CO2 was 16. Sodium 142. Phosphorus was 2.6. C- reactive protein was 29.88. TSH was 2. Urinalysis did reveal too numerous to count WBC. Leukocyte was large. Bacteria 2+, blood culture was negative. Stool for clostridium difficile toxin was negative. A few WBCs. Urine culture grew gram-positive cocci. ID and sensitivity is pending. The patient had CT scan of the abdomen and pelvis done, which did reveal fecal impaction. Nonspecific liver lesion most likely hemangioma and hysterectomy. Abdominal x-ray was nonspecific bowel gas pattern. Chest was benign. Echocardiogram: Left ventricular function is hyperdynamic. No evidence of gross valvular abnormality. DISPOSITION: Overall the patient received maximum benefit of hospitalization. I am planning to discharge the patient to rehab. DISCHARGE INSTRUCTIONS: We will continue antibiotics. Aspiration precautions. Oxygen. Check appropriate labs. I am going to call his son and let him know about discharge planning. cc: Wilfredo Campo MD
[2016-11-19 13:41] VITALS: BP 101/53
--- NOTE | 2016-11-26 11:09 | DISCHARGE SUMMARY ---
ADMISSION DATE: 11/13/2016 DISCHARGE DATE: 11/19/2016 DISCHARGE SUMMARY ADDENDUM: The patient's functional status is significant advanced debility due to her previous stroke and flexion contracture. The patient will not qualify for sepsis. cc: Wilfredo Campo MD
--- NOTE | 2016-12-22 12:13 | PROVIDER DOCUMENTATION ---
This chart was entered by Anne Tian Scribe, acting as scribe for Paco Horta MD. HPI-General Adult - General Source: patient, family, care home records Unable to obtain history due to:: other (nonverbal) <David VazGiovani - Last Filed: 01/03/17 04:43> - General Source: patient - History of Present Illness -Gen Adult Nature of Presenting Problems: Pt is a 66 yof who came to the ED via EMS from the care home with a cc of vomiting emesis. Pt lives at the care home and has a hx of two strokes and peg surgery. Pt was seen vomiting emesis at the care home one hour before EMS was called. Location of Pain/Injury: reports: none Pain Radiation: reports: no radiation Quality of Pain: reports: none Severity: reports: mild Onset/Duration: reports: unsure, 1-3 hours ago Timing: reports: still present Associated Symptoms: reports: denies symptoms Similar Symptoms Previously?: No Recently seen or treated by another doctor?: No <Paco Horta - Last Filed: 01/06/17 17:03> - General Chief Complaint: Vomiting Time Seen by Provider: 11/13/16 14:23 Allergies/Adverse Reactions: Patient Allergies Allergy/AdvReac Type Severity Reaction Status Date / Time No Known Allergies Allergy Verified 11/13/16 15:03 Home Medications: Home Medication List Medication Instructions Recorded Confirmed Last Taken Type Aspirin 81 mg PO DAILY 11/28/15 11/13/16 11/13/16 08:00 History Famotidine [Pepcid] 40 mg GT DAILY 11/28/15 11/13/16 11/13/16 06:00 History Fentanyl 25 Microgm/Hr Patch 25 mcg TOP Q3DAYS 11/28/15 11/13/16 11/11/16 08:00 History [Duragesic 25 Microgm/Hr Patch] Lactulose 30 ml PO DAILY 11/28/15 11/13/16 11/13/16 08:00 History Levothyroxine [Synthroid] 50 microgm GT DAILY 11/28/15 11/13/16 11/13/16 06:00 History Sertraline HCl 50 mg GT DAILY 11/28/15 11/13/16 11/13/16 08:00 History Acetaminophen [Non-Aspirin] 650 mg GT Q4HR PRN 11/13/16 11/13/16 Unknown History Calcium Carbonate/Vitamin D3 1 each GT BID 11/13/16 11/13/16 11/13/16 08:00 History [Calcium 600 + Vit D Tablet] Cholecalciferol (Vit D3) [Vitamin 1,000 unit GT BID 11/13/16 11/13/16 11/13/16 08:00 History D3] Menthol/Zinc Oxide Ointment 1 applicatn TOP PRN PRN 11/13/16 11/13/16 11/13/16 07:00 History [Calmoseptine Ointment] Protein Hydrolysate,Milk [Liquid 30 ml GT DAILY 11/13/16 11/13/16 11/13/16 08: 00 History Protein Fortifier] Sulfamethoxazole/Trimethoprim 1 each PO BID #10 tablet 11/19/16 Unknown Rx [Bactrim Ds Tablet] Review of Systems - Adult - REVIEW OF SYSTEMS - ADULT ROS:: unobtainable per condition Constitutional: reports: see HPI <David Vaz - Last Filed: 01/03/17 04:43> - REVIEW OF SYSTEMS - ADULT ROS:: unobtainable per condition Constitutional: denies: fever Eyes: reports: no symptoms reported Ears, Nose, Mouth & Throat: reports: no symptoms reported Cardiovascular: reports: no symptoms reported Respiratory: reports: no symptoms reported Gastrointestinal: reports: hematemesis, vomiting (emesis). denies: diarrhea Genitourinary: reports: no symptoms reported Musculoskeletal: reports: no symptoms reported Integumentary: reports: no symptoms reported Neurological: reports: no symptoms reported Psychiatric: reports: no symptoms reported Endocrine: reports: no symptoms reported Hematologic/Lymphatic: reports: no symptoms reported Allergic/Immunologic: reports: no symptoms reported All Other Systems: Reviewed and Negative <Paco Horta - Last Filed: 01/06/17 17:03> Past History - Adult - PAST MEDICAL HISTORY-ADULT Review of Records: reports: Old Records Reviewed, Nursing Assessment Review, Medications Reviewed, Social history reviewed & non-contributory. Major Childhood Illnesses: reports: history unknown <David Vaz - Last Filed: 01/03/17 04:43> - PAST MEDICAL HISTORY-ADULT Review of Records: reports: Nursing Assessment Review Major Childhood Illnesses: reports: denies history Cardiovascular: reports: hyperlipidemia Respiratory: reports: denies history Gastrointestinal: reports: GERD Obstetrical/Gynecological: reports: denies history Genitourinary: reports: denies history Musculoskeletal: reports: denies history Neurological: reports: CVA, stroke deficits (cannot communicate/contactures) Endocrine/Immune: reports: Diabetes, thyroid disorder Other Conditions: reports: denies history - PRIOR SURGERIES/PROCEDURES Surgical/Procedure History: reports: hysterectomy, other (throat surgery) - IMMUNIZATION STATUS Childhood Immunizations: See Nurse Assessment Flu Vaccine: See Nurse Assessment - FAMILY HISTORY Family History: reviewed, not pertinent <Paco Horta - Last Filed: 01/06/17 17:03> Physical Exam-General - PHYSICAL EXAM-ADULT Exam Limited by: nonverbal - CONSTITUTIONAL General Appearance: alert, no apparent distress, other (nonverbal) - EYES Eyes: other (clear) - HEAD, EARS, NOSE, MOUTH & THROAT HENMT: other (clear) - NECK Neck: supple - RESPIRATORY Respiratory: no respiratory distress, no accessory muscle use - CARDIOVASCULAR Cardiovascular: regular rate, rhythm - GASTROINTESTINAL (ABDOMEN) Abdominal Exam: non tender, soft - LYMPHATIC Lymphatic: no adenopathy - MUSCULOSKELETAL Back Exam: normal inspection Extremity: non-tender Peripheral Pulses: radial (R): 2+, radial (L): 2+ - SKIN Integumentary: normal color - NEUROLOGIC Neurologic: other (nonfocal,uncooperative to exam) <David Vaz - Last Filed: 01/03/17 04:43> - PHYSICAL EXAM-ADULT Initial Vital Signs Reviewed: Yes - CONSTITUTIONAL General Appearance: alert, no apparent distress <Paco Horta - Last Filed: 01/06/17 17:03> Progress - PLAN OF CARE/RESULTS Progress/Plan/Lab Results: Vital Signs - 8 hr 11/13/16 14:44 11/13/16 16:20 11/13/16 18:00 Pulse Rate 125 H 121 H 118 H Respiratory Rate 18 24 25 H Blood Pressure 140/96 112/73 107/82 O2 Sat by Pulse Oximetry 98 99 99 11/13/16 19:20 Stool Occult Blood ([place]) - Final Stool 11/13/16 16:21 Gastric Occult Blood - Final Emesis Laboratory Results - last 24 hr 11/13/16 11/13/16 11/13/16 16:25 16:25 16:25 WBC 17.57 H RBC 4.39 Hgb 14.0 Hct 41.8 MCV 95.2 MCH 31.9 H MCHC 33.5 RDW Std Deviation 14.0 Plt Count 322 MPV 10.1 Immature Gran % (Auto) 0.3 Neut % (Auto) 87.7 H Lymph % (Auto) 5.9 L [place] % (Auto) 5.9 Eos % (Auto) 0.1 Baso % (Auto) 0.1 Immature Gran # (Auto) 0.05 H Neut # (Auto) 15.41 H Lymph # (Auto) 1.04 L [place] # (Auto) 1.04 H Eos # (Auto) 0.01 Baso # (Auto) 0.02 PT 11.0 INR 1.04 PTT (Actin FS) 28.5 Sodium 130 L Potassium 3.5 Chloride 86 L Carbon Dioxide 31 Anion Gap 13 BUN 17 Creatinine 0.7 Estimated GFR/1.73 m2 > 60 BUN/Creatinine Ratio 24 Glucose 145 H Calculated Osmolality 265 Calcium 10.5 H Total Bilirubin 0.36 AST 30 ALT 19 Alkaline Phosphatase 110 H Total Protein 8.0 Albumin 4.0 Globulin 4.0 Albumin/Globulin Ratio 1.0 Plasma Lactate Blood Type Antibody Screen 11/13/16 11/13/16 16:25 18:27 WBC RBC Hgb Hct MCV MCH MCHC RDW Std Deviation Plt Count MPV Immature Gran % (Auto) Neut % (Auto) Lymph % (Auto) [place] % (Auto) Eos % (Auto) Baso % (Auto) Immature Gran # (Auto) Neut # (Auto) Lymph # (Auto) [place] # (Auto) Eos # (Auto) Baso # (Auto) PT INR PTT (Actin FS) Sodium Potassium Chloride Carbon Dioxide Anion Gap BUN Creatinine Estimated GFR/1.73 m2 BUN/Creatinine Ratio Glucose Calculated Osmolality Calcium Total Bilirubin AST ALT Alkaline Phosphatase Total Protein Albumin Globulin Albumin/Globulin Ratio Plasma Lactate 1.4 Blood Type O POSITIVE Antibody Screen NEGATIVE Orders Category Date Time Status Saline Loc DIRECTED Care 11/13/16 14:43 Active CHEST-PORTABLE [RAD] Stat Exams 11/13/16 19:[address] ABD/PELVIS W/ IV CONT ONLY [CT] Routine Exams 11/13/16 16:33 Taken BLOOD CULTURE [BLDCUL] Stat Lab 11/13/16 18:34 Results CBC WITH ELECTRONIC DIFF [HEME] Stat Lab 11/13/16 16:25 Completed COMPREHENSIVE METABOLIC PANEL [CHEM] Stat Lab 11/13/16 16:25 Completed LACTATE, PLASMA [CHEM] Stat Lab 11/13/16 18:27 Completed OCCULT BLOOD NON-FECES Stat Lab 11/13/16 16:21 Completed OCCULT BLOOD SCREENING [STOOL] Stat Lab 11/13/16 19:20 Completed PROTIME WITH INR [COAG] Stat Lab 11/13/16 16:25 Completed PTT [COAG] Stat Lab 11/13/16 16:25 Completed TYPE & SCREEN [BBK] Stat Lab 11/13/16 16:25 Completed 0.9% Sodium Chloride Inj [Ns] 1,000 ml Med 11/13/16 14:43 Active IV 125 mls/hr 0.9% Sodium Chloride Inj [Ns] 1,000 ml Med 11/13/16 19:30 Active IV 999 mls/hr Ondansetron [Zofran] Med 11/13/16 17:27 Discontinued 4 mg IV NOW ONE Result Diagrams: 11/17/16 14:09 11/19/16 07:27 - CONSULTS/PCP/HOSPITALIST Notification #1 *Consult/PCP/Hospitalist*: Dr. Beck, hospitalist Time Discussed: 19:47 Consult Disposition: Will see in ED <David Vaz - Last Filed: 01/03/17 04:43> - PLAN OF CARE/RESULTS Progress/Plan/Lab Results: Laboratory Results - last 24 hr 11/13/16 11/13/16 11/13/16 03:10 16:25 16:25 WBC 17.57 H RBC 4.39 Hgb 14.0 Hct 41.8 MCV 95.2 MCH 31.9 H MCHC 33.5 RDW Std Deviation 14.0 Plt Count 322 MPV 10.1 Immature Gran % (Auto) 0.3 Neut % (Auto) 87.7 H Lymph % (Auto) 5.9 L [place] % (Auto) 5.9 Eos % (Auto) 0.1 Baso % (Auto) 0.1 Immature Gran # (Auto) 0.05 H Neut # (Auto) 15.41 H Lymph # (Auto) 1.04 L [place] # (Auto) 1.04 H Eos # (Auto) 0.01 Baso # (Auto) 0.02 PT INR PTT (Actin FS) Sodium 130 L Potassium 3.5 Chloride 86 L Carbon Dioxide 31 Anion Gap 13 BUN 17 Creatinine 0.7 Estimated GFR/1.73 m2 > 60 BUN/Creatinine Ratio 24 Glucose 145 H Calculated Osmolality 265 Calcium 10.5 H Total Bilirubin 0.36 AST 30 ALT 19 Alkaline Phosphatase 110 H Troponin T Total Protein 8.0 Albumin 4.0 Globulin 4.0 Albumin/Globulin Ratio 1.0 Plasma Lactate Urine Source CATH Urine Color YELLOW Urine Turbidity CLEAR Urine pH 8.0 Ur Specific [place] 1.034 Urine Protein TRACE A Ur Glucose (Stick) NEGATIVE Ur Ketones (Stick) NEGATIVE Urine Blood NEGATIVE Urine Nitrite NEGATIVE Urine Bilirubin NEGATIVE Urobilinogen Dipstick NORMAL Urine Leukocytes NEGATIVE Urine WBC (Auto) <10 Urine RBC (Auto) <10 U Epithel Cells (Auto) <10 Urine Bacteria (Auto) NEGATIVE Blood Type Antibody Screen 11/13/16 11/13/16 11/13/16 16:25 16:25 18:27 WBC RBC Hgb Hct MCV MCH MCHC RDW Std Deviation Plt Count MPV Immature Gran % (Auto) Neut % (Auto) Lymph % (Auto) [place] % (Auto) Eos % (Auto) Baso % (Auto) Immature Gran # (Auto) Neut # (Auto) Lymph # (Auto) [place] # (Auto) Eos # (Auto) Baso # (Auto) PT 11.0 INR 1.04 PTT (Actin FS) 28.5 Sodium Potassium Chloride Carbon Dioxide Anion Gap BUN Creatinine Estimated GFR/1.73 m2 BUN/Creatinine Ratio Glucose Calculated Osmolality Calcium Total Bilirubin AST ALT Alkaline Phosphatase Troponin T Total Protein Albumin Globulin Albumin/Globulin Ratio Plasma Lactate 1.4 Urine Source Urine Color Urine Turbidity Urine pH Ur Specific [place] Urine Protein Ur Glucose (Stick) Ur Ketones (Stick) Urine Blood Urine Nitrite Urine Bilirubin Urobilinogen Dipstick Urine Leukocytes Urine WBC (Auto) Urine RBC (Auto) U Epithel Cells (Auto) Urine Bacteria (Auto) Blood Type O POSITIVE Antibody Screen NEGATIVE 11/13/16 18:35 WBC RBC Hgb Hct MCV MCH MCHC RDW Std Deviation Plt Count MPV Immature Gran % (Auto) Neut % (Auto) Lymph % (Auto) [place] % (Auto) Eos % (Auto) Baso % (Auto) Immature Gran # (Auto) Neut # (Auto) Lymph # (Auto) [place] # (Auto) Eos # (Auto) Baso # (Auto) PT INR PTT (Actin FS) Sodium Potassium Chloride Carbon Dioxide Anion Gap BUN Creatinine Estimated GFR/1.73 m2 BUN/Creatinine Ratio Glucose Calculated Osmolality Calcium Total Bilirubin AST ALT Alkaline Phosphatase Troponin T < 0.010 Total Protein Albumin Globulin Albumin/Globulin Ratio Plasma Lactate Urine Source Urine Color Urine Turbidity Urine pH Ur Specific [place] Urine Protein Ur Glucose (Stick) Ur Ketones (Stick) Urine Blood Urine Nitrite Urine Bilirubin Urobilinogen Dipstick Urine Leukocytes Urine WBC (Auto) Urine RBC (Auto) U Epithel Cells (Auto) Urine Bacteria (Auto) Blood Type Antibody Screen Orders Category Date Time Status Admit - [facility] Routine AdmDCTranf 11/13/16 22:10 Ordered Activity - Strict Bedrest ORDERED Care 11/13/16 22:10 Active Apply Mechanical Device [QM] ORDERED Care 11/13/16 22:10 Active Intake and Output-Strict ORDERED Care 11/13/16 22:10 Active Nursing- MD Consult Request Care 11/13/16 22:10 Active Saline Loc DIRECTED Care 11/13/16 14:43 Active Soap Suds Enema DIRECTED Care 11/13/16 22:10 Active Vital Signs Order Q6HR Care 11/13/16 22:10 Active Physician/Provider Consults Routine Cons 11/14/16 08:00 Ordered NPO Diet 11/13/16 20:47 Active CHEST-PORTABLE [RAD] Stat Exams 11/13/16 19:[address] ABD/PELVIS W/ IV CONT ONLY [CT] Routine Exams 11/13/16 16:33 Completed BASIC METABOLIC PANEL [CHEM] Routine Lab 11/14/16 05:45 Completed BLOOD CULTURE [BLDCUL] Stat Lab 11/13/16 18:34 Results CBC WITH DIFF [HEME] Routine Lab 11/14/16 05:45 Completed CBC WITH ELECTRONIC DIFF [HEME] Stat Lab 11/13/16 16:25 Completed COMPREHENSIVE METABOLIC PANEL [CHEM] Stat Lab 11/13/16 16:25 Completed LACTATE, PLASMA [CHEM] Stat Lab 11/13/16 18:27 Completed OCCULT BLOOD NON-FECES Stat Lab 11/13/16 16:21 Completed OCCULT BLOOD SCREENING [STOOL] Stat Lab 11/13/16 19:20 Completed PROTIME WITH INR [COAG] Stat Lab 11/13/16 16:25 Completed PTT [COAG] Stat Lab 11/13/16 16:25 Completed TSH Routine Lab 11/14/16 05:45 Completed TYPE & SCREEN [BBK] Stat Lab 11/13/16 16:25 Completed UA NIMS W/REFLEX CULT [URINALYSIS] Stat Lab 11/13/16 03:10 Completed 0.9% Sodium Chloride Inj [Ns] 1,000 ml Med 11/13/16 14:43 Discontinued IV 125 mls/hr 0.9% Sodium Chloride Inj [Ns] 1,000 ml Med 11/13/16 19:30 Discontinued IV 999 mls/hr Bisacodyl [Dulcolax] Med 11/13/16 19:56 Discontinued 10 mg UT NOW ONE Fentanyl 25 Microgm/Hr Patch [Duragesic 25 Microgm/Hr Med 11/16/16 06:00 Active Patch] 1 each TD Q3DAYS Lactulose Med 11/14/16 09:00 Active 30 ml PO DAILY Levothyroxine [Synthroid] Med 11/14/16 07:00 Active 50 microgm GT DAILY@0700 Menthol/Zinc Oxide Ointment [Calmoseptine Ointment] Med 11/13/16 22:10 Active 1 gm TOP PRN PRN Ondansetron [Zofran] Med 11/13/16 17:27 Discontinued 4 mg IV NOW ONE Ondansetron [Zofran] Med 11/13/16 19:52 Discontinued 4 mg IV NOW ONE Ondansetron [Zofran] Med 11/13/16 22:10 Active 4 mg IV Q4H PRN PRN Pantoprazole [Protonix] Med 11/13/16 22:10 Active 40 mg IV Q12H Sodium Chloride 0.9% Med 11/13/16 22:10 Active 10 ml INJ DIRECTED Telemetry [OM.EQ] Routine Oth 11/13/16 22:10 Active Physical Therapy Eval/Treatment [OM.PT] Routine Ther 11/13/16 22:10 Active Transfer/Admit Order [TRANSFER] Routine Transfer 11/13/16 20:44 Completed Result Diagrams: 11/17/16 14:09 11/19/16 07:27 - CHANGE OF SHIFT REPORT (ED Provider) Report Given and Care Transferred to:: Dr. Vaz Time of Transfer: 17:54 Items Pending: CT/MRI Results <Paco Horta - Last Filed: 01/06/17 17:03> Departure - Departure Time of Disposition Decision: 21:05 Certified Medical Emergency: Emergent - Critical Care Note This patient required my direct & personal management of CC.: No <David Vaz - Last Filed: 01/03/17 04:43> - Departure Date of Disposition Decision: 11/13/16 Certified Medical Emergency: Emergent <Paco Horta - Last Filed: 01/06/17 17:03> - Departure DIAGNOSIS: Fecal impaction, Dehydration, Tachycardia Leukocytosis Qualifiers: Leukocytosis type: unspecified Qualified Code(s): D72.829 - Elevated white blood cell count, unspecified Disposition: ADMITTED INPATIENT 09 Condition: Stable Attestation - Physician/ PAUL Attestation Patient care was provided by Advanced Practice Provider:: Yes Advanced Practice Provider documentation review:: The Mid-level provider documentation, treatment plan and medical decision making was reviewed by the physician who agrees with all treatment and medical decision making by the MLP. The physician spent face to face time with patient:: Yes Advanced Practice Provider documentation review:: The physician spent face to face time with this patient and agrees with all MLP documentation, treatment, and medical decision making by the MLP. See provider notes for further information. <David Vaz - Last Filed: 01/03/17 04:43> - Physician/ PAUL Attestation Patient care was provided by Advanced Practice Provider:: No <Paco Horta - Last Filed: 01/06/17 17:03> This chart was documented by the indicated scribe, (Anne Tian Scribe) and accurately reflects the services I performed and decisions made by me, Paco Horta MD, as attested by the provider's signature.
== END 2016-11-19 13:51 ==
LOC: ED 14:03 → 3N 21:07 → SUATTDRO 21:07
PROVIDERS: ADMIT Internal Medicine; ATTEND Internal Medicine

== ENCOUNTER 2018-08-27 21:23 | Inpatient (IN) ==
[2018-08-27 22:12] LABS: BASO# 0.01 X1000 (0.0-0.2); BASO% 0.1 % (0.0-0.8); HEMATOCRIT 33.1 % (37.0-47.0); IMM GRAN# 0.02 X1000 (0.0-0.04); IMM GRAN% 0.1 % (0.0-0.5); LYMPH# 0.51 X1000 (1.2-3.4); LYMPH% 3.7 % (20.5-51.1); MCHC 33.2 g/dL (33-37); MCV 96.2 FL (81-99); MONO# 0.68 X1000 (0.11-0.59); MONO% 4.9 % (1.7-9.3); MPV 10.7 FL (7.4-10.4); NEUT# 12.72 X1000 (1.4-6.5); NEUT% 91.2 % (42.2-75.2); PLT 191 X1000 (130-400); RBC 3.44 XMIL (4.2-5.4); RDW 13.4 % (11.5-14.5); WBC 13.94 X1000 (4.8-10.8)
[2018-08-27 22:24] LABS: ESTIMATED GFR > 60
[2018-08-27 22:25] LABS: INR 1.13; PROTIME 15.4 Seconds (11.0-16.0); PTT 34.6 Seconds (22.3-41.8)
[2018-08-27 22:27] LABS: AGAP 14; ALB/GLOB RATIO 1.3; ALBUMIN 3.7 g/dL (3.5-5.0); ALKALINE PHOSPHATASE 88 U/L (32-104); BUN 23 mg/dL (8-22); CALCIUM 8.9 mg/dL (8.8-10.2); CHLORIDE 88 mmol/L (98-107); CK PROFILE 131 U/L (24-173); COSMO 268; CREATININE 0.6 mg/dL (0.5-0.9); GLUCOSE 200 mg/dL (70-104); GOT 35 U/L (10-30); GPT 19 U/L (10-36); POTASSIUM 4.4 mmol/L (3.5-5.1); SODIUM 129 mmol/L (136-145); TCO2 27 mmol/L (25-35); TOTAL BILIRUBIN 0.37 mg/dL (0.20-1.00); TOTAL PROTEIN 6.5 g/dL (6.3-8.3)
[2018-08-27 23:43] LABS: URINE SOURCE CLEAN CATCH
[2018-08-27 23:59] LABS: BILIRUBIN URINE NEGATIVE (NEGATIVE); BLOOD URINE SMALL (NEGATIVE); COLOR YELLOW; GLUCOSE URINE NEGATIVE (NEGATIVE); KETONE URINE NEGATIVE (NEGATIVE); LEUKOCYTES URINE LARGE (NEGATIVE); NITRITE URINE NEGATIVE (NEGATIVE); PROTEIN URINE 70 mg/dL (NEGATIVE); SP GRAVITY URINE 1.012; TURBIDITY URINE HAZY (CLEAR); UROBILINOGEN URINE NORMAL (NORMAL)
[2018-08-28 00:09] LABS: UR EPITHELIAL CELLS >10 /HPF (<10); URINE BACTERIA 4+ /HPF; URINE WBC TNTC /HPF (<10)
[2018-08-28 00:14] LABS: URINE CASTS NONE SEEN; URINE CRYSTALS NONE SEEN; URINE SMALL ROUND CELLS RENAL PRESENT; URINE YEAST NONE SEEN
[2018-08-28] MEDS ORDERED: TYLENOL LIQUID PEG ONE (00:37)
[2018-08-28] MEDS ORDERED: ZOSYN 3.375 GM in NS 50 ML IV ONE (00:40)
[2018-08-28] MEDS ORDERED: NS 1,000 ML IV ONE (00:42)
--- NOTE | 2018-08-28 01:22 | PROVIDER DOCUMENTATION ---
This chart was entered by Meenu Workman Scribe, acting as scribe for Lane Blake MD. HPI-Fever - General Chief Complaint: Possible Sepsis-D Stated Complaint: sob/congestion Time Seen by Provider: 08/27/18 21:59 Source: RN/ Allergies/Adverse Reactions: Patient Allergies Allergy/AdvReac Type Severity Reaction Status Date / Time No Known Allergies Allergy Verified 11/13/16 15:03 Home Medications: Home Medication List Medication Instructions Recorded Confirmed Last Taken Type Aspirin 81 mg GT DAILY 11/28/15 08/28/18 08/27/18 08:00 History Famotidine [Pepcid] 20 mg GT DAILY 11/28/15 08/28/18 08/27/18 08:00 History Fentanyl 25 Microgm/Hr Patch 25 mcg TOP Q3DAYS 11/28/15 08/28/18 08/26/18 08:00 History [Duragesic 25 Microgm/Hr Patch] Lactulose 30 ml GT DAILY 11/28/15 08/28/18 08/27/18 08:00 History Levothyroxine [Synthroid] 50 microgm GT DAILY 11/28/15 08/28/18 08/27/18 06:00 History Sertraline HCl 50 mg GT DAILY 11/28/15 08/28/18 08/27/18 08:00 History Acetaminophen [Non-Aspirin] 650 mg GT Q4HR PRN 11/13/16 08/28/18 Unknown History Calcium Carbonate/Vitamin D3 1 each GT BID 11/13/16 08/28/18 08/27/18 08:00 H istory [Calcium 600 + Vit D Tablet] Cholecalciferol (Vit D3) [Vitamin 1,000 unit GT BID 11/13/16 08/28/18 08/27/18 History D3] Menthol/Zinc Oxide Ointment 1 applicatn TOP PRN PRN 11/13/16 08/28/18 11/13/16 07:00 History [Calmoseptine Ointment] Multivits W-Fe,Other Min [Centrum] 15 ml PEG DAILY 05/27/17 08/28/18 08/27/18 08:00 History Protein Hydrolysate,Milk [Liquid 30 ml PEG BID 05/27/17 08/28/18 08/27/18 08:00 History Protein Fortifier] Iron Carbonyl/Ascorbic Acid 1 ea GT BID #60 tab 06/02/17 08/28/18 08/27/18 08:00 Rx [Icar-C] Lactobacillus Rhamnosus GG 1 ea GT BID 08/28/18 08/28/18 08/27/18 08:00 History [Culturelle] Menthol/Zinc Oxide Ointment 1 applicatn TOP BID 08/28/18 08/28/18 08/27/18 07:00 History [Calmoseptine Ointment] Nut.tx.gluc.intoler,Lac-Fr,Soy 1,500 ml GT BID 08/28/18 08/28/18 08/27/18 07:00 History [Glucerna 1.2 Vince] - History of Present Illness-Fever Nature of Presenting Problem: 68 yof brought to ED via ems from [facility]. pt is 2L o2 depende nt, has a bad cough, congestion with fever of 103.2 in er. pt has a peg tube. She is nonverbal and bedbound Fever Severity/Quality: reports: greater than 102 F Onset/Duration: reports: unsure Review of Systems - Adult - REVIEW OF SYSTEMS - ADULT ROS:: unobtainable per condition Constitutional: reports: other (unobtainable given non verbal status ; no accompanying family nor staff) All Other Systems: Reviewed and Negative Past History - Adult - PAST MEDICAL HISTORY-ADULT Review of Records: reports: Old Records Reviewed, Nursing Assessment Review, Medications Reviewed, Social history reviewed & non-contributory. Major Childhood Illnesses: reports: denies history Cardiovascular: reports: hyperlipidemia Gastrointestinal: reports: GERD Neurological: reports: CVA, stroke deficits (cannot communicate/contactures) Endocrine/Immune: reports: Diabetes, thyroid disorder - PRIOR SURGERIES/PROCEDURES Surgical/Procedure History: reports: hysterectomy, other (throat surgery, feeding tube) - IMMUNIZATION STATUS Childhood Immunizations: See Nurse Assessment Flu Vaccine: See Nurse Assessment - FAMILY HISTORY Family History: reviewed, not pertinent Physical Exam-General - PHYSICAL EXAM-ADULT Initial Vital Signs Reviewed: Yes - CONSTITUTIONAL General Appearance: lethargic (non verbal , bedridden), other (frail) - EYES Eyes: pink conjunctivae, other ( does not open eyes and tries to shut them off when attempt to open them) - HEAD, EARS, NOSE, MOUTH & THROAT HENMT: moist mucous membranes - RESPIRATORY Respiratory: respiratory distress (on oxygen via nasal canulla), decreased breath sounds (bialt), rales, other (on 2L of o2 94). negative: lungs clear, normal breath sounds - CARDIOVASCULAR Cardiovascular: tachycardia. negative: bradycardia, extra beats, friction rub - GASTROINTESTINAL (ABDOMEN) Abdominal Exam: other (peg tube). negative: guarding, rigid, rebound - LYMPHATIC Lymphatic: no adenopathy - SKIN Integumentary: normal color, normal turgor, warm/dry. negative: cyanosis, diaphoresis, decubitus - NEUROLOGIC Neurologic: other (nonverbal; spasticity in all 4 extremities) - PSYCHIATRIC Psych/Mental Status: disoriented x 3, other (nonverbal) Progress - PLAN OF CARE/RESULTS Progress/Plan/Lab Results: Vital Signs - 8 hr 08/27/18 21:30 08/27/18 21:31 08/27/18 21:35 Temperature Pulse Rate 130 H Respiratory Rate 21 Blood Pressure 105/64 117/72 O2 Sat by Pulse Oximetry 94 L 91 L 95 08/27/18 21:38 08/27/18 21:40 08/27/18 21:45 Temperature 103.2 F H Pulse Rate 133 H 137 H 111 H Respiratory Rate 21 28 H 23 Blood Pressure 105/64 107/71 O2 Sat by Pulse Oximetry 94 L 95 96 08/27/18 21:47 08/27/18 21:48 08/27/18 21:50 Temperature Pulse Rate 92 H 89 Respiratory Rate 19 8 L 25 H Blood Pressure 102/81 108/94 O2 Sat by Pulse Oximetry 97 93 L 92 L 08/27/18 21:52 08/27/18 22:00 08/27/18 22:03 Temperature Pulse Rate 107 H 99 H Respiratory Rate 19 28 H 20 Blood Pressure 107/69 103/67 O2 Sat by Pulse Oximetry 94 L 92 L 94 L 08/27/18 22:10 08/27/18 22:18 08/27/18 22:20 Temperature Pulse Rate 131 H 128 H Respiratory Rate 26 H 26 H Blood Pressure 112/58 O2 Sat by Pulse Oximetry 91 L 97 92 L 08/27/18 22:30 08/27/18 22:33 08/27/18 22:40 Temperature Pulse Rate 91 H 136 H Respiratory Rate 25 H 24 23 Blood Pressure 126/69 O2 Sat by Pulse Oximetry 94 L 94 L 94 L 03/10/19 22:48 08/27/18 22:50 08/27/18 23:00 Temperature Pulse Rate 186 H 243 H 212 H Respiratory Rate 26 H 21 27 H Blood Pressure 127/77 O2 Sat by Pulse Oximetry 92 L 94 L 92 L 08/27/18 23:03 08/27/18 23:10 08/27/18 23:18 Temperature Pulse Rate 222 H 149 H 217 H Respiratory Rate 26 H 26 H 22 Blood Pressure 103/69 102/73 O2 Sat by Pulse Oximetry 93 L 91 L 91 L 08/27/18 23:20 08/27/18 23:30 08/28/18 00:32 Temperature Pulse Rate 183 H 235 H 151 H Respiratory Rate 25 H 23 18 Blood Pressure 126/77 O2 Sat by Pulse Oximetry 89 L 93 L 90 L Laboratory Results - last 24 hr 08/27/18 08/27/18 08/27/18 21:47 21:47 21:47 WBC 13.94 H RBC 3.44 L Hgb 11.0 L Hct 33.1 L MCV 96.2 MCH 32.0 H MCHC 33.2 RDW Std Deviation 13.4 Plt Count 191 MPV 10.7 H Immature Gran % (Auto) 0.1 Neut % (Auto) 91.2 H Lymph % (Auto) 3.7 L [place] % (Auto) 4.9 Eos % (Auto) 0.0 Baso % (Auto) 0.1 Immature Gran # (Auto) 0.02 Neut # (Auto) 12.72 H Lymph # (Auto) 0.51 L [place] # (Auto) 0.68 H Eos # (Auto) 0.00 Baso # (Auto) 0.01 PT INR PTT (Actin FS) Sodium 129 L Potassium 4.4 Chloride 88 L Carbon Dioxide 27 Anion Gap 14 BUN 23 H Creatinine 0.6 Estimated GFR/1.73 m2 > 60 BUN/Creatinine Ratio 38 Glucose 200 H Calculated Osmolality 268 Calcium 8.9 Total Bilirubin 0.37 AST 35 H ALT 19 Alkaline Phosphatase 88 Creatine Kinase 131 Total Protein 6.5 Albumin 3.7 Globulin 2.8 Albumin/Globulin Ratio 1.3 Plasma Lactate 1.7 Urine Source Urine Color Urine Turbidity Urine pH Ur Specific [place] Urine Protein Ur Glucose (Stick) Ur Ketones (Stick) Urine Blood Urine Nitrite Urine Bilirubin Urobilinogen Dipstick Urine Leukocytes Urine WBC (Auto) Urine RBC (Auto) U Epithel Cells (Auto) Urine Bacteria (Auto) Urine Crystals Small Round Cells Urine Casts Urine Yeast-like Cells 08/27/18 08/27/18 08/28/18 21:47 23:25 00:46 WBC RBC Hgb Hct MCV MCH MCHC RDW Std Deviation Plt Count MPV Immature Gran % (Auto) Neut % (Auto) Lymph % (Auto) [place] % (Auto) Eos % (Auto) Baso % (Auto) Immature Gran # (Auto) Neut # (Auto) Lymph # (Auto) [place] # (Auto) Eos # (Auto) Baso # (Auto) PT 15.4 INR 1.13 PTT (Actin FS) 34.6 Sodium Potassium Chloride Carbon Dioxide Anion Gap BUN Creatinine Estimated GFR/1.73 m2 BUN/Creatinine Ratio Glucose Calculated Osmolality Calcium Total Bilirubin AST ALT Alkaline Phosphatase Creatine Kinase Total Protein Albumin Globulin Albumin/Globulin Ratio Plasma Lactate 2.5 H Urine Source CLEAN CATCH Urine Color YELLOW Urine Turbidity HAZY Urine pH 7.0 Ur Specific [place] 1.012 Urine Protein 70 A Ur Glucose (Stick) NEGATIVE Ur Ketones (Stick) NEGATIVE Urine Blood SMALL A Urine Nitrite NEGATIVE Urine Bilirubin NEGATIVE Urobilinogen Dipstick NORMAL Urine Leukocytes LARGE A Urine WBC (Auto) TNTC A Urine RBC (Auto) 10-20 A U Epithel Cells (Auto) >10 A Urine Bacteria (Auto) 4+ Urine Crystals NONE SEEN Small Round Cells RENAL PRESENT Urine Casts NONE SEEN Urine Yeast-like Cells NONE SEEN Orders Category Date Time Status Cardiac Monitoring DIRECTED Care 08/27/18 21:40 Active Arias Cath Insertion ORDERED Care 08/27/18 22:21 Active IV Insertion ORDERED Care 08/27/18 21:40 Completed Notify MD of + Sepsis Screen NOW Care 08/27/18 21:40 Active Notify Physician As Ordered Care 08/27/18 21:40 Active CHEST-1 VIEW [RAD] Stat Exams 08/27/18 21:40 Taken BLOOD CULTURE [BLDCUL] Stat Lab 08/27/18 22:20 Results CBC WITH DIFF [HEME] Stat Lab 08/27/18 21:47 Completed CK PROFILE [SP CHEM] Stat Lab 08/27/18 21:47 Completed COMPREHENSIVE METABOLIC PANEL [CHEM] Stat Lab 08/27/18 21:47 Completed LACTATE, PLASMA [CHEM] Q3H Lab 08/27/18 21:47 Completed LACTATE, PLASMA [CHEM] Q3H Lab 08/28/18 00:46 Completed LACTATE, PLASMA [CHEM] Q3H Lab 08/28/18 03:45 Uncollected PRO B-NATRIURETIC PEPTIDE Stat Lab 08/28/18 00:41 Uncollected PROTIME WITH INR [COAG] Stat Lab 08/27/18 21:47 Completed PTT [COAG] Stat Lab 08/27/18 21:47 Completed TROPONIN T Stat Lab 08/27/18 23:22 Ordered URINALYSIS W/POSS RFLX CULT [URINALYSIS] Stat Lab 08/27/18 23:25 Completed URINE CULTURE [RM] Routine Lab 08/28/18 00:50 Received URINE MANUAL MICROSCOPIC [URINALYSIS] Stat Lab 08/27/18 23:25 Completed 0.9% Sodium Chloride Inj [Ns] 1,000 ml Med 08/28/18 00:42 Active IV 999 mls/hr Acetaminophen Liquid [Tylenol Liquid] Med 08/28/18 00:37 Discontinued 650 mg PEG NOW ONE Piperacillin/Tazobactam [Zosyn] 3.375 gm Med 08/28/18 00:40 Discontinued 0.9% Sodium Chloride Inj [Ns] 50 ml IV NOW BIPAP Stat Oth 08/28/18 00:38 Active Oxygen Device Stat Oth 08/27/18 21:40 Active Result Diagrams: 08/27/18 21:47 08/27/18 21:47 - REASSESSMENT Reassessment #1 Time Reassessed: 00:30 Status: worsening (patient is requiring 4liters of oxygen via nasal canulla; with significant tachycardia; bipap to be placed) - EKG 1 Time of EKG reading by physician:: 22:13 EKG Read and Signed by:: Jong Pond EKG Interpretation (*Must complete 3 of following elements*): Abnormal Rate: 152 Rhythm: Undetermined rhythm UT Interval: shortened ST Wave: non-specific ST changes (t wave abnormality, consider lateral ischemia) 2 Time of EKG reading by physician:: 00:27 EKG Read and Signed by:: Lane Blake EKG Interpretation (*Must complete 3 of following elements*): Abnormal Rate: 154 Rhythm: undetermined rhythm [place]: left (left axis deviation) UT Interval: shortened Prior EKG Comparison: changes noted - CONSULTS/PCP/HOSPITALIST Notification #1 *Consult/PCP/Hospitalist*: Dr. Kirkpatrick Time Discussed: 01:08 Consult Disposition: Admit Departure - Departure Date of Disposition Decision: 08/28/18 Time of Disposition Decision: 01:10 DIAGNOSIS: Acute respiratory failure Qualifiers: Respiratory failure complication: unspecified whether with hypoxia or hypercapnia Qualified Code(s): J96.00 - Acute respiratory failure, unspecified whether with hypoxia or hypercapnia Sepsis Qualifiers: Sepsis type: sepsis due to unspecified organism Qualified Code(s): A41.9 - Sepsis, unspecified organism UTI (urinary tract infection) Qualifiers: Urinary tract infection type: site unspecified Hematuria presence: without hematuria Qualified Code(s): N39.0 - Urinary tract infection, site not specified Altered mental status Qualifiers: Altered mental status type: unspecified Qualified Code(s): R41.82 - Altered me ntal status, unspecified Disposition: ADMITTED INPATIENT 09 Certified Medical Emergency: Emergent Condition: Critical Referrals and Follow-Ups: Wilfredo Campo MD [Primary Care Provider] - - Critical Care Note This patient required my direct & personal management of CC.: Yes Total Time (mins): 120 Critical Care Statement: This patient required my direct personal management to treat or rule out processes, the absence of which, could potentiallly result in sudden, clinically significant life or limb threatening deterioration. Attestation - Physician/ PAUL Attestation Patient care was provided by Advanced Practice Provider:: No The physician spent face to face time with patient:: Yes Advanced Practice Provider documentation review:: Supervising physician onsite and consulted in the evaluation and care of this patient. The physician did have a face to face encounter with the patient. This chart was documented by the indicated scribe, (Meenu Workman Scribe) and accurately reflects the services I performed and decisions made by Lou hoffman Kofi X., MD, as attested by the provider's signature.
[2018-08-28] MEDS ORDERED: VANCOMYCIN IV PER PHARMACY MISC SCH (02:21)
[2018-08-28] MEDS ORDERED: ZOFRAN IV PRN (02:21)
[2018-08-28] MEDS ORDERED: NS 1,000 ML IV SCH ×2 (02:21→07:05)
[2018-08-28] MEDS: DUONEB (A & A) INH SCH ×6 (03:30→23:04)
[2018-08-28] MEDS: PROTONIX IV SCH (03:38)
[2018-08-28] MEDS: LOVENOX SUBQ SCH (03:40)
[2018-08-28] MEDS ORDERED: VANCOMYCIN 1,550 MG in NS 250 ML IV ONE (04:00)
--- NOTE | 2018-08-28 06:47 | HISTORY AND PHYSICAL ---
CHIEF COMPLAINT: Altered mental status, cough, and fever. HISTORY OF PRESENT ILLNESS: This is a 68-year-old -[place] female who was sent from [facility] to the emergency department because apparently she was having cough from the last few days along with fever, 103.2, and her oxygen needs were getting higher. The patient is nonverbal. There is no family in the room. All information is taken from the ER doctor and the ER documents. The patient is nonverbal, patient is bed-bound. Patient has been seen a couple years ago for sepsis secondary to UTI as well. At this point, patient looks definitely more obtunded. The patient is tachypneic and tachycardic. Upon ER evaluation, she was found out to have a leukocytosis with normal renal function. Elevated blood sugars of 200, plasma lactate is elevated at 2.5 with normal urine urinalysis. So patient is going to be admitted for severe sepsis. Patient is tachypneic, tachycardic, febrile. We have a source of infection which is urine. The patient is going to ICU. PAST MEDICAL HISTORY: 1. 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 The patient is contracted in bed. 2. Diabetes mellitus type 2. 3. Hypothyroidism. 4. Hyperlipidemia. 5. History of pneumonia 3 years ago. PAST SURGICAL HISTORY: 1. Hysterectomy. 2. Throat surgery. SOCIAL HISTORY: The patient is a permanent resident of [facility]. Patient has lived at least 12 years there. She started living there since she got a CVA. Apparently, there is no history of drinking alcohol, smoking tobacco, or using any illicit drugs. There is a history of cerebral palsy. FAMILY HISTORY: Not possible to obtain. ALLERGIES: No known drug allergies. REVIEW OF SYSTEMS: Not possible to obtain because the patient is nonverbal. MEDICATIONS: To be reconciled. PHYSICAL EXAMINATION: Vitals 101.6, heart rate 143, respiratory 25. Blood pressure 114/72, O2 saturation 91% on 5 L nasal cannula. GENERAL: This is a chronically ill appearing, nonverbal 68-year-old -[place] female lying in bed, in no acute distress. HEENT: Head is normocephalic, atraumatic. Mucous membranes dry. Pupils equal, round, reactive to light and accommodation. Sclerae is anicteric. Pale conjunctivae. NECK: No JVD noted. No carotid bruits. No lymphadenopathy. No thyromegaly. CARDIOVASCULAR: S1, S2 heard. No murmurs, gallops, or rubs. Regular rate and rhythm. Patient tachycardic. Sinus tachycardia. RESPIRATORY: Decreased breath sounds globally, but there is rhonchi some wheezing in both pulmonary bases. The patient is not using any accessory muscles or having work of breathing. ABDOMEN: Soft, a little bit distended. Apparently nontender to palpation. Bowel sounds present. No organomegaly. EXTREMITIES: No clubbing, cyanosis, or edema. Peripheral pulses present in both legs. GENITOURINARY: Arias catheter in place with dirty urine. NEUROLOGIC: Apparently patient at her baseline. She is bed-bound with contractures secondary to all CVA. She does not follow commands. She was asleep here. LABORATORY DATA: White cell count 13.94, hemoglobin 11.0, hematocrit 33.1, platelets 191,000, with sodium 129, normal renal function. Chloride 88. Plasma lactate 2.5. Normal urinalysis. ASSESSMENT AND PLAN: 1. Severe sepsis secondary to urinary tract infection. At this point, we will continue with aggressive fluid resuscitation. We will start broad-spectrum antibiotics with Zosyn, vancomycin. We will keep checking this patient closely. Blood culture and urine culture have been obtained. 2. Hyponatremia. Aware. We will continue to check BMP daily. 3. Diabetes mellitus type 2. We will check hemoglobin A1c. We will continue with Accu-Chek before meals and also at bedtime and sliding scale insulin as well. 4. Sinus tachycardia. More likely related to this infection. We will continue to monitor this patient closely. 5. Hypothyroidism. Will continue with Synthroid. 6. Recommendations to follow up the clinical situation of the patient. The patient is going to be sent to the intensive care unit. cc: MD Wilfredo Saleh MD
[2018-08-28] MEDS: HUMULIN R SUBQ SCH ×4 (07:00→21:00)
--- NOTE | 2018-08-28 07:42 | Diag Imaging Result Doc PS360 ---
EXAM: CHEST-PORTABLE INDICATION: sob TECHNIQUE: One view COMPARISON: 08/27/2018 FINDINGS: There is increased opacity at the left lung base as compared to the previous study suggesting developing atelectasis and/or mild infiltrate. There also may be a small effusion on the left. The right lung is clear. Cardiac silhouette is stable. IMPRESSION: Increasing opacity at the left lung base as detailed above when compared to the previous study. Electronically signed by Ambrosio Workman 08/28/2018 7:40 AM
--- NOTE | 2018-08-28 07:43 | PROGRESS NOTE ---
DATE: 08/28/2018 SUBJECTIVE: Ms. Begum was admitted with possible sepsis due to UTI. The patient is doing fair, and not able to give any history. History was gotten from admission history and physical. The patient is doing fair. She is very tachycardic and at times tachypneic. She did have a fever of 101.6. The patient is getting feeding through the PEG tube. No nausea or vomiting. OBJECTIVE: Her vital signs are noted. Neck: Supple. Lungs: Bibasilar crepitation. Heart: S1 and S2 heard. Abdomen: Soft. PEG tube is in place. Nontender. Extremities: No cyanosis or clubbing. No acute DVT. 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 CATSHOVEL DRIVER: Alert. Awake. Uncooperative for detailed exam. The patient does have aphasia. ASSESSMENT AND PLAN: Admission lab data noted. I am going to recheck blood work again today. Decrease IV fluid. Continue IV antibiotics. Close observation. Patient is waiting to go to ICU. I am going to get a critical care consultation with Dr. Hubbard. cc: Wilfredo Campo MD
--- NOTE | 2018-08-28 07:47 | Diag Imaging Result Doc PS360 ---
EXAM: CHEST-1 VIEW INDICATION: possible sepsis TECHNIQUE: One view COMPARISON: 10/31/2017 FINDINGS: There is mild subsegmental atelectasis at the left lung base. The lungs are grossly clear, otherwise. There is no discrete pleural fluid collection or pneumothorax. The cardiomediastinal silhouette and central vasculature are grossly unremarkable. IMPRESSION: Mild left basilar subsegmental atelectasis. Electronically signed by Ambrosio Workman 08/28/2018 7:45 AM
[2018-08-28 07:55] LABS: AGAP 14; ALBUMIN 3.4 g/dL (3.5-5.0); ALKALINE PHOSPHATASE 76 U/L (32-104); BUN 20 mg/dL (8-22); CALCIUM 9.3 mg/dL (8.8-10.2); CHLORIDE 93 mmol/L (98-107); COSMO 272; CREATININE 0.7 mg/dL (0.5-0.9); ESTIMATED GFR > 60; GLUCOSE 221 mg/dL (70-104); GOT 32 U/L (10-30); GPT 19 U/L (10-36); MAGNESIUM 1.6 mg/dL (1.5-2.7); POTASSIUM 4.1 mmol/L (3.5-5.1); SODIUM 131 mmol/L (136-145); TCO2 24 mmol/L (25-35); TOTAL BILIRUBIN 0.39 mg/dL (0.20-1.00); TOTAL PROTEIN 6.9 g/dL (6.3-8.3)
[2018-08-28] MEDS: ZOSYN 3.375 GM in NS 50 ML IV SCH ×3 (08:17→20:15)
[2018-08-28 09:26] LABS: BASO# 0.01 X1000 (0.0-0.2); BASO% 0.1 % (0.0-0.8); IMM GRAN# 0.02 X1000 (0.0-0.04); IMM GRAN% 0.2 % (0.0-0.5)
--- NOTE | 2018-08-28 09:34 | Diag Imaging Result Doc PS360 ---
EXAM: CT THORAX W/O CONTRAST - 08/28/2018 HISTORY: SOB TECHNIQUE: CT thorax without contrast. No contrast administered per request of the referring provider. COMPARISON: 08/28/2018 portable chest radiograph FINDINGS: There is atelectasis of much of the left lower lobe. The left lower lobe bronchus is no well visualized than may be narrowed or may contain mucus/secretions. Underlying left lower lobe consolidation/pneumonia cannot be occluded. There is some infiltrate with atelectasis at the right base. There is mild patchy infiltrate at the right upper lobe. There is no substantial pleural effusion or pneumothorax identified. There are no substantially enlarged mediastinal lymph nodes identified. There is a gastrostomy tube noted extending to the distal stomach on included sections of the upper abdomen. IMPRESSION: Atelectasis of much of left lower lobe. Possible obstruction of left lower lobe bronchus by narrowing or retained mucus. Left lower lobe pneumonia cannot be excluded. Some ill-defined infiltrate with atelectasis at right base. Mild patchy infiltrate at right upper lobe. This exam was performed using automated exposure control, adjustment of mA or kV according to patient size, and/or use of iterative reconstruction technique. Electronically signed by Germain Burnett 08/28/2018 9:32 AM
[2018-08-28 10:00] LABS: BANDS 14 % (0-1); LYMPHS 4 % (21-51); MONO 10 % (1-9); SEGS 72 % (42-75)
[2018-08-28 10:34] LABS: HEMATOCRIT 30.2 % (37.0-47.0); HEMOGLOBIN 9.9 g/dL (12.0-16.0); LYMPH# 0.88 X1000 (1.2-3.4); LYMPH% 9.2 % (20.5-51.1); MCH 31.6 PG (27-31); MCHC 32.8 g/dL (33-37); MCV 96.5 FL (81-99); MONO# 0.65 X1000 (0.11-0.59); MONO% 6.8 % (1.7-9.3); MPV 10.1 FL (7.4-10.4); NEUT# 8.01 X1000 (1.4-6.5); NEUT% 83.7 % (42.2-75.2); PLT 163 X1000 (130-400); RBC 3.13 XMIL (4.2-5.4); RDW 13.5 % (11.5-14.5); WBC 9.57 X1000 (4.8-10.8)
--- NOTE | 2018-08-28 10:56 | EKG Report ---
Test Performed on : 08/28/2018 00:27:05 AM Test Reason : ED. No order in [place] Blood Pressure : / mmHG Vent. Rate : 154 BPM Atrial Rate : 156 BPM P-R Int : 100 ms QRS Dur : 066 ms QT Int : 282 ms P-R-T Axes : 044 -41 061 degrees QTc Int : 451 ms Undetermined rhythm Left axis deviation Abnormal ECG When compared with ECG of 27-AUG-2018 22:13, (Unconfirmed) Current undetermined rhythm precludes rhythm comparison, needs review Unconfirmed Result
--- NOTE | 2018-08-28 10:56 | EKG Report ---
Test Performed on : 08/27/2018 10:13:05 PM Test Reason : ED. No order in [place] Blood Pressure : / mmHG Vent. Rate : 152 BPM Atrial Rate : 144 BPM P-R Int : 104 ms QRS Dur : 052 ms QT Int : 312 ms P-R-T Axes : 124 -29 075 degrees QTc Int : 496 ms Undetermined rhythm T wave abnormality, consider lateral ischemia Abnormal ECG When compared with ECG of 26-MAY-2017 23:51, Current undetermined rhythm precludes rhythm comparison, needs review ST no longer depressed in Inferior leads ST no longer depressed in Anterior leads Nonspecific T wave abnormality has replaced inverted T waves in Lateral leads Unconfirmed Result
[2018-08-28] MEDS: NS 1,000 ML IV SCH ×2 (13:15→21:55)
[2018-08-28] MEDS: TYLENOL LIQUID PEG PRN (15:50)
[2018-08-28 16:19] LABS: BASO# 0.01 X1000 (0.0-0.2); BASO% 0.1 % (0.0-0.8); HEMATOCRIT 29.8 % (37.0-47.0); HEMOGLOBIN 9.9 g/dL (12.0-16.0); IMM GRAN# 0.02 X1000 (0.0-0.04); IMM GRAN% 0.2 % (0.0-0.5); LYMPH# 0.76 X1000 (1.2-3.4); LYMPH% 7.6 % (20.5-51.1); MCH 32.7 PG (27-31); MCHC 33.2 g/dL (33-37); MCV 98.3 FL (81-99); MONO# 0.58 X1000 (0.11-0.59); MONO% 5.8 % (1.7-9.3); MPV 10.1 FL (7.4-10.4); NEUT# 8.61 X1000 (1.4-6.5); NEUT% 86.3 % (42.2-75.2); PLT 157 X1000 (130-400); RBC 3.03 XMIL (4.2-5.4); RDW 13.5 % (11.5-14.5); WBC 9.98 X1000 (4.8-10.8)
[2018-08-28 16:28] LABS: AGAP 9; BUN 14 mg/dL (8-22); CALCIUM 8.4 mg/dL (8.8-10.2); CHLORIDE 97 mmol/L (98-107); COSMO 266; CREATININE 0.5 mg/dL (0.5-0.9); ESTIMATED GFR > 60; GLUCOSE 122 mg/dL (70-104); POTASSIUM 3.4 mmol/L (3.5-5.1); SODIUM 132 mmol/L (136-145); TCO2 26 mmol/L (25-35)
[2018-08-28] MEDS ORDERED: KLOR-CON PO ONE (17:00)
--- NOTE | 2018-08-28 18:33 | CONSULTATION ---
DATE OF CONSULTATION: 08/28/2018 REQUESTING PROVIDER: Dr. Wilfredo Campo. REASON FOR CONSULTATION: Critical care. HISTORY OF PRESENT ILLNESS: This is a 68-year-old female with a medical history of CVA, diabetes, hypothyroidism, hyperlipidemia, cerebral palsy and likely dysarthria. She presented to the ER via EMS from [facility] with altered mental status, cough and fever. She is 2L Oxygen dependent, but in the ER, her oxygen requirement once went up to 5L. Initial workup in the ER revealed severe sepsis secondary to urinary tract infection and hyponatremia. She has been admitted to the ICU for further evaluation and management. At the time of my examination, patient is still staying in the ER. She is lying in the stretcher comfortably without acute distress. She is breathing through a nasal cannula at 4 L. Her eyes are open and she looks at me when I talk to her, but she does not say any word and she would not follow commands. All information is obtained from e-Chart. PAST MEDICAL AND SURGICAL HISTORY: 1. CVA 12 years ago, which left the patient nonverbal and unable to follow commands; She is contracted and bedbound. 2. Diabetes mellitus type 2. 3. Hypothyroidism. 4. Hyperlipidemia. 5. Cerebral palsy 6. Likely dysarthria 7. Hysterectomy. 8. Throat surgery. SOCIAL HISTORY: The patient lives at [facility] since CVA. She has no history of alcohol, tobacco, or illicit drug use. FAMILY HISTORY: Unable to be obtained. ALLERGIES: No known drug allergies. REVIEW OF SYSTEMS: Unable to be obtained. PHYSICAL EXAMINATION: Vital Signs: Temperature 99.3, blood pressure 124/64, pulse 117, respiratory rate 26, oxygen saturation 95% on nasal cannula at 2 L. General: Chronically ill appealing, nonverbal. Lying in bed comfortably in no acute distress. HEENT: Atraumatic, trachea midline. Mucosa pink and dry. Constant mouth movement noted. Respiratory: Lung expansion equal bilaterally. Auscultation revealed diminished breathing sounds globally, otherwise clear. Cardiovascular: Regular rate and rhythm with sinus tachycardia. Gastrointestinal: Normoactive bowel sounds in all 4 quadrants. Soft, flat. Patient does have a PEG tube. Extremities: No pedal edema. No cyanosis. No clubbing. Bilateral upper extremities have severe constriction. Neurologic: The patient is alert, but nonverbal. She is responsive to my verbal stimuli as she looks at me when I talk to her. She does not follow commands. IMAGING DATA: Chest x-ray revealed increased opacity at the left lung base. Chest CT without contrast revealed atelectasis of much of the left lower lobe, possible obstruction of left lower lobe bronchus by narrowing or retained mucus. Left lower lobe pneumonia cannot be excluded. Some ill-defined infiltrate with atelectasis at right base. Mild patchy diffuse infiltrate at right upper lobe. LAB DATA: White blood cell 9.98, hemoglobin 9.9, hematocrit 29.8, platelet 157,000. Sodium 132, potassium 3.4, chloride 97, carbon dioxide 26, BUN 14, creatinine 0.5, glucose 122, calcium 8.4. ASSESSMENT: This is a 68-year-old female with a medical history of CVA, diabetes, hypothyroidism, hyperlipidemia, cerebral palsy and likely dysarthria. She has been admitted to the ICU with severe sepsis secondary to urinary tract infection, altered mental status and acute respiratory distress. 1. Acute respiratory distress with atelectasis of much of left lower lobe and possible obstruction of left lower lobe bronchus. 2. Severe sepsis secondary to urinary tract infection. 3. Altered mental status. PLAN: 1. Continue supplemental oxygen as needed. 2. Continue antibiotics and bronchodilators. 3. Follow with chest x-ray, CBC, CMP and check ABG if indicated. 4. FU urine culture and blood culture. 5. Continue GI and DVT prophylaxis. 6. Further recommendation pending hospital course. Thank you for the courtesy of this consult. Dictated by JOURDAN Marte for Derrek Chiang MD cc: JOURDAN Marte MD Bharat K. Vakharia, MD UNITED HEALTH SERVICESAlexis
--- NOTE | 2018-08-28 19:29 | INFECTIOUS DISEASE CONSULT REP ---
DATE: 08/28/2018 CONCLUSION: The patient appears to have a urinary tract infection, a gram-positive coccal bacteremia and possible pneumonia. The patient may have started out with a urinary tract infection which then developed a bacteremia and involved the lung hematogenously. RECOMMENDATIONS: I agree with treating the patient with a combination of vancomycin and Zosyn pending culture results. DISCUSSION: The patient is unable to provide a history and no family member is present. According to the information in the chart, the patient lives in [facility] and was sent to the emergency room because she was coughing and had fever. The patient's CBC shows a white count of 9980, hemoglobin is 9.9, and platelet count 157,000. Creatinine is 0.5. GFR is greater than 60. Urinalysis shows white cells and bacteria. Blood cultures are growing gram- positive cocci. Urine culture is pending. Chest CT scan shows a left lower lobe atelectasis versus pneumonia and a right lower lobe infiltrate. PAST MEDICAL HISTORY: Positive for a stroke 10 years ago which left the patient nonverbal and unable to follow commands. The patient also has diabetes mellitus, hypothyroidism, hyperlipidemia, and a history of pneumonia 3 years ago. PAST SURGICAL HISTORY: Positive for hysterectomy and throat surgery. SOCIAL HISTORY: The patient lives at [facility]. She has been there 12 years. She started living there after she had her stroke. The patient does not have any history of alcohol consumption, smoking cigarettes, or use of illicit drugs. There is a history of cerebral palsy. FAMILY HISTORY: Unable to obtain. ALLERGIES: There are no drug allergies listed. REVIEW OF SYSTEMS: Unable to obtain. MEDICATIONS: Taken at the senior living include aspirin, calcium, Pepcid, Duragesic patch, lactobacillus, Synthroid, multivitamins and proteins and sertraline. PHYSICAL EXAMINATION: Vital Signs: Temperature is 100.2 degrees, pulse is 113, respirations 21, blood pressure 114/65. Patient is 5 feet tall, weighs 124 pounds. General: This is an ill- appearing elderly female. She is in no acute distress. Head/eyes/ears/nose/throat: No drainage is noted from the nose or ears. The patient did talk. She told me that she wanted to watch television while she was in the emergency room. Neck: No tenderness or masses. Neck was supple. Lungs: Clear to auscultation. Cardiovascular: Heart rate is regular. Abdomen: Soft and nontender. Neurologic: The patient is awake. She did move her extremities to request but she was very weak. There is no tremor. Integument: No rash was noted. Thank you for the consult. cc: MD Wilfredo Welsh MD
[2018-08-29] MEDS: PROTONIX IV SCH (02:52)
[2018-08-29] MEDS: ZOSYN 3.375 GM in NS 50 ML IV SCH ×4 (02:55→18:26)
[2018-08-29] MEDS: LOVENOX SUBQ SCH (02:57)
[2018-08-29] MEDS: DUONEB (A & A) INH SCH ×6 (03:00→23:14)
[2018-08-29 03:39] LABS: ALLEN TEST YES; BE 0.5 mmoll (-3.0-3.0); BLOOD TYPE ARTERIAL; HCO3-(ACT) 25.3 mmoll (20.0-26.0); METHB 1.3 % (0.0-1.5); O2HB 94.2 % (95.0-99.0); PCO2(98.6) 28 mmHg (35-45); PO2(98.6) 63 mmHg (60-100); SAMPLE BLOOD; SAO2 97.1 % (95.0-100.0); pH(98.6) 7.52 (7.35-7.45)
[2018-08-29 03:40] LABS: MODALITY CANNULA
[2018-08-29] MEDS: VANCOMYCIN 1 GM/NS 1 GM/250 ML IVPB IV SCH (04:23)
[2018-08-29 05:42] LABS: HEMATOCRIT 28.1 % (37.0-47.0); HEMOGLOBIN 9.2 g/dL (12.0-16.0); IMM GRAN# 0.02 X1000 (0.0-0.04); IMM GRAN% 0.2 % (0.0-0.5); LYMPH# 0.72 X1000 (1.2-3.4); LYMPH% 6.3 % (20.5-51.1); MCH 31.6 PG (27-31); MCHC 32.7 g/dL (33-37); MCV 96.6 FL (81-99); MONO# 0.46 X1000 (0.11-0.59); NEUT# 10.19 X1000 (1.4-6.5); NEUT% 89.5 % (42.2-75.2); PLT 154 X1000 (130-400); RBC 2.91 XMIL (4.2-5.4); RDW 13.5 % (11.5-14.5); WBC 11.39 X1000 (4.8-10.8)
[2018-08-29 06:06] LABS: AGAP 13; ALB/GLOB RATIO 0.9; ALBUMIN 2.6 g/dL (3.5-5.0); ALKALINE PHOSPHATASE 52 U/L (32-104); BUN 9 mg/dL (8-22); CALCIUM 7.8 mg/dL (8.8-10.2); CHLORIDE 105 mmol/L (98-107); COSMO 276; CREATININE 0.5 mg/dL (0.5-0.9); ESTIMATED GFR > 60; GLUCOSE 103 mg/dL (70-104); GOT 43 U/L (10-30); GPT 16 U/L (10-36); MAGNESIUM 1.5 mg/dL (1.5-2.7); POTASSIUM 3.5 mmol/L (3.5-5.1); SODIUM 139 mmol/L (136-145); TCO2 21 mmol/L (25-35); TOTAL BILIRUBIN 0.45 mg/dL (0.20-1.00); TOTAL PROTEIN 5.6 g/dL (6.3-8.3)
[2018-08-29 06:14] LABS: LYMPHS 5 % (21-51); MONO 5 % (1-9); SEGS 90 % (42-75)
[2018-08-29] MEDS: HUMULIN R SUBQ SCH ×4 (07:00→21:36)
[2018-08-29] MEDS ORDERED: MAGNESIUM SULFATE 2 GM/S.W.I. 2 GM/50 ML IVPB IV ONE (07:05)
--- NOTE | 2018-08-29 07:21 | PROGRESS NOTE ---
DATE: 08/29/2018 SUBJECTIVE: Ms. Begum was admitted with possible sepsis. The patient is doing fair. Not able to give any history. No high-grade fever. At times, patient is tachycardic. No nausea or vomiting. Blood culture positive for gram-positive cocci. Urine culture result reviewed which revealed mixed madison. Chest x-ray and CT scan results noted which revealed atelectasis of the left lower lobe, mild patchy infiltrate at the right upper lobe. OBJECTIVE: Vital Signs: Her vital signs noted. Neck: Supple. Lungs: Bibasilar crepitations. CVS: S1 and S2 heard. Tachycardia. Abdomen: Soft, scaphoid. PEG tube is in place. Extremities: Flexion contracture of both upper and lower limbs. FLAVORING OIL FILTERER: The patient does have expressive aphasia. Uncooperative for detailed exam. Laboratory Data: Done today, WBC count 11.39, hemoglobin 9.2, hematocrit 28.1, platelet count 154,000. Blood gas: PH 7.52, pCO2 28, PO2 was 63. Electrolytes: Sodium 139, potassium 3.5, calcium 7.8, magnesium 1.5. ASSESSMENT AND PLAN: 1. I am going to supplement magnesium intravenous. Continue the rest of the treatment. I am going to resume her percutaneous endoscopic gastrostomy tube feedings. Patient is still waiting for intensive care unit bed. We will change positions frequently. Continue rest of the treatment. Close observation. 2. Her problems include pneumonia, urinary tract infection, history of cerebrovascular accident, expressive aphasia, hypokalemia - improved, possible sepsis. cc: Wilfredo Campo MD
[2018-08-29] MEDS: NS 1,000 ML IV SCH ×2 (07:33→18:26)
--- NOTE | 2018-08-29 08:02 | Diag Imaging Result Doc PS360 ---
CHEST-PORTABLE - 08/29/2018 INDICATION: sob COMPARISON: 08/28/2018 FINDINGS: There are new focal infiltrates in the right lung apex and lung base. Stable infiltrate in the left lung base. No pneumothorax or pleural effusion. Heart size is top normal. IMPRESSION: Worsening multifocal bilateral infiltrates suspicious for pneumonia. Electronically signed by Dylon Reddy 08/29/2018 8:00 AM
--- NOTE | 2018-08-29 19:41 | CARDIOLOGY CONSULTATION ---
DATE: 08/29/2018 CHIEF COMPLAINT: Altered mental status, cough and fever. HISTORY OF PRESENT ILLNESS: Ms. Begum is a 68-year-old black female sent from [facility]. She has a history of, I believe, cerebral palsy as well as stroke and is chronically debilitated and bed confined. She has tube feeds. Apparently she had a temperature as high as 103.2 degrees with decreased oxygen levels. She was sent for further evaluation. No family is present. Since that time, she has been receiving IV fluids, tube feeds and antibiotics. Today during transport in the hospital, telemetry called with concern for an arrhythmias on review of these strips, it appears most consistent with an artifactual arrhythmias. Patient was apparently not symptomatic during that time period and was awake. PAST MEDICAL HISTORY: 1. CVA around 10 years ago which left the patient nonverbal, unable to follow commands. She is bed-bound with contractures. 2. Diabetes mellitus. 3. Hypothyroidism. 4. Hyperlipidemia. 5. Cerebral palsy. SOCIAL HISTORY: Resident of [facility] for at least the last 12 years. No alcohol history or tobacco use. FAMILY HISTORY: Unable to be obtained from the patient. REVIEW OF SYSTEMS: Unable to be obtained from the patient. PHYSICAL EXAMINATION: Vital signs: She is afebrile as high as 103.2 on presentation. Most recent temperature was 98.0 degrees. Heart rate is in the 100s to 110s, and on telemetry it appears consistent with sinus tachycardia. Her blood pressure is 97/76. Her presenting blood pressure was 105/64. General: She is in no acute distress. She does not follow commands. She grimaces to physical stimuli. HEENT: Oropharynx moist, poor dentition. Eye examination with pink conjunctivae, white sclerae. Neck examination: Shows no obvious thyromegaly or thyroid tenderness. Cardiovascular: She sounds to be in a tachycardic and regular rhythm. She has no murmurs. She has no S3. She has no lower extremity edema. She has warm and well perfused extremities. Chest Exam: Had somewhat distant breath sounds. She did not cooperate with the examiner. She had no increased work of breathing. Abdomen: Soft, nontender, nondistended. She has no obvious organomegaly. Skin Exam: Warm and dry throughout. Neurological: She is not following commands. She opened her eyes. She is not moving her extremities. She is contracted. Psychiatric Exam: Unable to be performed. PERTINENT DATA: Her telemetry is as detailed above in my HPI. Her most recent EKG on the at 1521 shows sinus tachycardia at a rate of 120 beats per minute. Her CT scan of her chest demonstrated atelectasis of much of the left lower lobe, possible obstruction of the left lower lobe bronchus by narrowing or retained mucus cannot be excluded as well of a left lower lobe pneumonia cannot be excluded. There are mild patchy infiltrates at the right upper lobe. Her laboratory data demonstrates a white count of 11.4. Her hematocrit is 28. Platelet count is 154,000. She has a 90% neutrophil count. Her sodium is 139, potassium 3.5, BUN 9, creatinine 0.5, proBNP is 1439. Her lactate yesterday was 3.1. ASSESSMENT: Ms. Begum is a 68-year-old female who presented with sepsis. She had an artifactual event on telemetry that was concerning for an arrhythmia. PLAN: We will check a TSH. If this is unremarkable, then I would not pursue this arrhythmia further. The patient seems to be responding to antibiotics per her fever curve, which is improving as well as her white count. Please contact us if we can be of further assistance with this patient. cc: MD Wilfredo Tristan MD
[2018-08-30] MEDS: ZOSYN 3.375 GM in NS 50 ML IV SCH ×2 (01:28→09:01)
[2018-08-30] MEDS: PROTONIX IV SCH (03:18)
[2018-08-30] MEDS: SODIUM CHLORIDE 0.9% INJ SCH (03:18)
[2018-08-30] MEDS: LOVENOX SUBQ SCH (03:18)
[2018-08-30] MEDS: DUONEB (A & A) INH SCH ×6 (03:29→22:49)
[2018-08-30] MEDS: VANCOMYCIN 1 GM/NS 1 GM/250 ML IVPB IV SCH (04:00)
[2018-08-30] MEDS ORDERED: LASIX IV ONE (06:12)
[2018-08-30] MEDS: HUMULIN R SUBQ SCH ×4 (06:30→21:39)
--- NOTE | 2018-08-30 06:33 | PROGRESS NOTE ---
DATE: 08/30/2018 SUBJECTIVE: Ms. Begum is doing fair. No nausea or vomiting. Tolerating PEG tube feedings fair. No high-grade fever or chills. The patient had an episode of supraventricular tachycardia yesterday. There was question about artifact on monitor. Appreciate Cardiology evaluation and recommendation. No significant diarrhea. Chest x-ray done yesterday revealed worsening multifocal bilateral infiltrate. The patient is not able to give any history. OBJECTIVE: Vitals: Her vital signs are noted. Neck: Supple. No JVD. Lungs: Bibasilar crepitations. Heart: S1 and S2. Tachycardia. Abdomen: Soft, scaphoid. PEG tube is in place. Extremities: The patient does have flexion contracture of both upper and lower limbs. REEL CART OPERATOR: Alert, awake, not communicating. DIAGNOSTIC DATA: I am going to recheck again today, which is pending. CONSIDERATION: 1. Bronchopneumonia, possible sepsis. 2. NIDDM. 3. Hypothyroidism. 4. History of CVA and expressive aphasia. PLAN: The plan is to continue broad-spectrum antibiotics. Pulmonary toilet. Close observation. Pumping Plant Operator and ID specialist following patient with us. cc: Wilfredo Campo MD
[2018-08-30] MEDS: NS 1,000 ML IV SCH ×2 (06:44→18:05)
--- NOTE | 2018-08-30 07:15 | Diag Imaging Result Doc PS360 ---
EXAM: CHEST-1 VIEW INDICATION: SOB TECHNIQUE: One view COMPARISON: 08/29/2018 FINDINGS: There is stable infiltrates at the lung bases and the right lung apex. No new consolidation is identified. Cardiac silhouette is stable. IMPRESSION: Stable chest. Electronically signed by Ambrosio Workman 08/30/2018 7:12 AM
[2018-08-30 07:53] LABS: AGAP 12; ALB/GLOB RATIO 0.9; ALBUMIN 2.9 g/dL (3.5-5.0); ALKALINE PHOSPHATASE 66 U/L (32-104); BUN 9 mg/dL (8-22); CALCIUM 8.6 mg/dL (8.8-10.2); CHLORIDE 105 mmol/L (98-107); COSMO 281; CREATININE 0.5 mg/dL (0.5-0.9); ESTIMATED GFR > 60; GLUCOSE 125 mg/dL (70-104); GOT 51 U/L (10-30); GPT 21 U/L (10-36); POTASSIUM 2.8 mmol/L (3.5-5.1); SODIUM 141 mmol/L (136-145); TCO2 24 mmol/L (25-35); TOTAL BILIRUBIN 0.34 mg/dL (0.20-1.00); TOTAL PROTEIN 6.3 g/dL (6.3-8.3)
[2018-08-30 08:06] LABS: BASO# 0.01 X1000 (0.0-0.2); BASO% 0.1 % (0.0-0.8); HEMATOCRIT 29.6 % (37.0-47.0); HEMOGLOBIN 9.8 g/dL (12.0-16.0); IMM GRAN# 0.07 X1000 (0.0-0.04); IMM GRAN% 0.6 % (0.0-0.5); LYMPH# 0.71 X1000 (1.2-3.4); LYMPH% 5.6 % (20.5-51.1); MCHC 33.1 g/dL (33-37); MCV 96.7 FL (81-99); MONO# 0.62 X1000 (0.11-0.59); MONO% 4.9 % (1.7-9.3); MPV 9.8 FL (7.4-10.4); NEUT# 11.18 X1000 (1.4-6.5); NEUT% 88.8 % (42.2-75.2); PLT 168 X1000 (130-400); RBC 3.06 XMIL (4.2-5.4); RDW 13.8 % (11.5-14.5); WBC 12.59 X1000 (4.8-10.8)
[2018-08-30 08:08] LABS: BANDS 8 % (0-1); LYMPHS 8 % (21-51); SEGS 84 % (42-75)
--- NOTE | 2018-08-30 08:35 | EKG Report ---
Test Performed on : 08/29/2018 3:21:45 PM Test Reason : ED. NO EKG ORDER FOR MUSE Blood Pressure : / mmHG Vent. Rate : 120 BPM Atrial Rate : 120 BPM P-R Int : 140 ms QRS Dur : 060 ms QT Int : 346 ms P-R-T Axes : 059 027 085 degrees QTc Int : 489 ms Sinus tachycardia. Low voltage QRS Nonspecific T wave abnormality Abnormal ECG When compared with ECG of 28-AUG-2018 00:27, (Unconfirmed) Previous ECG has undetermined rhythm, needs review Unconfirmed Result
--- NOTE | 2018-08-30 09:42 | INFECTIOUS DISEASE PROGRESS NO ---
DATE: 08/30/2018 PRESENT ILLNESS: The patient has a Staphylococcus warneri bacteremia which I think originates from a Staphylococcus warneri pneumonia. Alternatively, the patient could have had a Staphylococcus warneri bacteremia that originated possibly from some skin site and then hematogenously involved the lungs. Fortunately, the Staphylococcus warneri in vitro is susceptible to oxacillin and that means it is also sensitive to Ancef. MEDICATIONS: Currently, the patient is on vancomycin and Zosyn. PHYSICAL EXAMINATION: Vital Signs: Temperature is 99 degrees, pulse 109, respirations 22, blood pressure 129/70. General: This is an ill-appearing, elderly female. She is in no acute distress. Head, Eyes, Ears, Nose, and Throat: No drainage is noted from the nose or ears. I did not get a good look at her mouth. Neck: No stiffness. Lungs: Clear to auscultation. Cardiovascular: The heart rate is regular. Abdomen: Soft and nontender. Neurologic: The patient is awake. She did move her extremities to request. Integument: No rash noted. LAB AND X-RAY: Both blood cultures are growing Staphylococcus warneri. Urine culture is mixed. Chest x-ray shows bibasilar and right upper lobe infiltrates. Creatinine is 0.5. GFR is greater than 60. Liver function studies are normal except for an AST of 51. The patient's CBC shows a white count of 12,590, hemoglobin 9.8, and platelet count 168,000. ASSESSMENT AND PLAN: The patient has pneumonia with an associated bacteremia due to Staphylococcus warneri. I am going to switch the patient to Ancef and I am going to treat her for 14 days with intravenous Ancef with day 1 being the first day that the repeat blood cultures are sterile. COMORBIDITIES: She is elderly, she has diabetes mellitus, and she has had a stroke. cc: MD Wilfredo Welsh MD
[2018-08-30] MEDS: KEFZOL 1 GM/D5W 1 GM/50 ML IVPB IV SCH ×2 (10:13→16:55)
[2018-08-30] MEDS ORDERED: POTASSIUM CHLORIDE 60 MEQ in NS 500 ML IV ONE (10:30)
[2018-08-30] MEDS: LOPRESSOR IV PRN ×3 (12:29→23:22)
[2018-08-30 21:37] LABS: AGAP 13; BUN 9 mg/dL (8-22); CALCIUM 8.3 mg/dL (8.8-10.2); CHLORIDE 108 mmol/L (98-107); COSMO 283; CREATININE 0.4 mg/dL (0.5-0.9); ESTIMATED GFR > 60; GLUCOSE 123 mg/dL (70-104); POTASSIUM 3.8 mmol/L (3.5-5.1); SODIUM 142 mmol/L (136-145); TCO2 21 mmol/L (25-35)
[2018-08-30] MEDS: TYLENOL LIQUID PEG PRN (23:23)
[2018-08-31] MEDS: PROTONIX IV SCH (01:58)
[2018-08-31] MEDS: KEFZOL 1 GM/D5W 1 GM/50 ML IVPB IV SCH ×3 (01:58→16:27)
[2018-08-31] MEDS: SODIUM CHLORIDE 0.9% INJ SCH (01:59)
[2018-08-31] MEDS: LOVENOX SUBQ SCH (01:59)
[2018-08-31] MEDS: LOPRESSOR IV PRN (03:15)
[2018-08-31] MEDS: TYLENOL LIQUID PEG PRN (03:15)
[2018-08-31] MEDS: DUONEB (A & A) INH SCH ×6 (03:30→23:07)
[2018-08-31] MEDS ORDERED: LASIX IV ONE (04:23)
[2018-08-31] MEDS ORDERED: XANAX PO ONE (04:25)
[2018-08-31 04:38] LABS: BASO# 0.06 X1000 (0.0-0.2); BASO% 0.5 % (0.0-0.8); EOS# 0.01 X1000 (0.0-0.7); EOS% 0.1 % (0.0-10.0); HEMATOCRIT 32.6 % (37.0-47.0); HEMOGLOBIN 10.5 g/dL (12.0-16.0); IMM GRAN# 0.11 X1000 (0.0-0.04); IMM GRAN% 0.9 % (0.0-0.5); LYMPH# 1.18 X1000 (1.2-3.4); LYMPH% 9.7 % (20.5-51.1); MCH 32.6 PG (27-31); MCHC 32.2 g/dL (33-37); MCV 101.2 FL (81-99); MONO# 0.79 X1000 (0.11-0.59); MONO% 6.5 % (1.7-9.3); MPV 10.5 FL (7.4-10.4); NEUT% 82.3 % (42.2-75.2); PLT 154 X1000 (130-400); RBC 3.22 XMIL (4.2-5.4); RDW 14.6 % (11.5-14.5); WBC 12.15 X1000 (4.8-10.8)
[2018-08-31 05:03] LABS: AGAP 15; BUN 12 mg/dL (8-22); CALCIUM 8.6 mg/dL (8.8-10.2); CHLORIDE 109 mmol/L (98-107); COSMO 287; CREATININE 0.5 mg/dL (0.5-0.9); ESTIMATED GFR > 60; GLUCOSE 167 mg/dL (70-104); POTASSIUM 4.2 mmol/L (3.5-5.1); SODIUM 142 mmol/L (136-145); TCO2 18 mmol/L (25-35)
[2018-08-31 05:10] LABS: ALLEN TEST YES; BE -0.5 mmoll (-3.0-3.0); BLOOD TYPE ARTERIAL; HCO3-(ACT) 24.5 mmoll (20.0-26.0); METHB 1.3 % (0.0-1.5); O2(CT) 15.8 mL/dL (15.0-23.0); PCO2(98.6) 27 mmHg (35-45); PO2(98.6) 66 mmHg (60-100); SAMPLE BLOOD; SAO2 96.4 % (95.0-100.0); THB 11.9 g/dL (11.5-17.4); pH(98.6) 7.51 (7.35-7.45)
[2018-08-31 05:11] LABS: MODALITY CANNULA
[2018-08-31] MEDS: NS 1,000 ML IV SCH ×2 (06:06→07:37)
[2018-08-31] MEDS: HUMULIN R SUBQ SCH ×4 (06:33→20:25)
--- NOTE | 2018-08-31 07:39 | PROGRESS NOTE ---
DATE: 08/31/2018 SUBJECTIVE: Ms. Begum is doing fair. Last night, the patient did have some respiratory distress. We had to hold her IV fluid and feeding. The patient received IV Lasix and some Xanax which did help the patient. This morning, the patient is more comfortable and calm. The patient did have a low-grade fever. No vomiting. We did have a problem with the feeding tube. We are going to resume feeding today, cut back her fluid. The patient does have expressive aphasia. Cannot give us any history. OBJECTIVE: Vital Signs: Noted. Lungs: The patient does have bilateral, few inspiratory crepitations. CVS: S1 and S2. Tachycardia. Abdomen: Soft, scaphoid. Bowel sounds present. OVERHEAD FOREMAN: The patient is sleeping but arousable. Lab Data: Done today, hemoglobin 10.5, hematocrit 32.6, platelet count 154,000. WBC count 12.15. Blood gas results reviewed. Electrolytes: Potassium 4.2, chloride 109, CO2 was 18, sodium 142. ProBNP was elevated. Chest x-ray results pending. CONSIDERATION: 1. Bronchopneumonia. 2. Fluid overload. 3. History of cerebrovascular accident. 4. [id number] diabetes mellitus. 5. Sepsis. PLAN: Plan is to continue current treatment. Close observation. cc: Wilfredo Campo MD
--- NOTE | 2018-08-31 07:43 | Diag Imaging Result Doc PS360 ---
EXAM: CHEST-PORTABLE INDICATION: decline in respiratory status TECHNIQUE: One view COMPARISON: 08/30/2018 FINDINGS: Lung volumes are slightly lower. Bibasilar infiltrates and infiltrate at the right lung apex have not changed significantly. No new consolidation is identified. Cardiac silhouette is stable. IMPRESSION: Slightly lower lung volumes. Stable chest, otherwise. Electronically signed by Ambrosio Workman 08/31/2018 7:41 AM
--- NOTE | 2018-08-31 18:06 | INFECTIOUS DISEASE PROGRESS NO ---
DATE: 08/31/2018 PRESENT ILLNESS: Ms. Begum is being treated for Staphylococcus warneri bacteremia, which may have originated from a Staphylococcus pneumonia. MEDICATION: She is receiving Kefzol 1 g IV every 8 hours. PHYSICAL EXAMINATION: Vital Signs: Temperature is 97.5 degrees, pulse rate 103, respiratory rate 21, blood pressure 108/65, O2 saturation is 100% on 3 L nasal cannula. General: This is a chronically ill-appearing elderly female. She is lying in bed, currently in no acute distress. HEENT: Conjunctivae are pale. Difficult to see inside her mouth. Cardiovascular: Heart rate and rhythm are regular and tachycardic, sinus tachycardia on the monitor. Respiratory: Lungs sounds have rhonchi in the upper lobes, diminished in the bases. Abdomen: Soft, round, nontender. Bowel sounds are active. There is a gastrostomy tube in place, and she is receiving tube feedings. That site is without edema, erythema, or drainage. Neurologic: The patient is nonverbal and does not respond to commands. She also has some bilateral extremity contractures. DIAGNOSTIC STUDIES: Today her white count is 12.15, hemoglobin 10.5, platelet count 154,000. This morning on 3 L nasal cannula her pH was 7.51, pCO2 of 27, PO2 of 66, HCO3 of 20. Her original blood culture grew Staphylococcus warneri. Urine culture has shown mixed madison. Blood cultures have been repeated and are preliminary. Chest x-ray today showed slightly lower lung volumes and a stable chest with bibasilar infiltrates and infiltrate at the right lung apex, with no new consolidation. ASSESSMENT AND PLAN: Ms. Begum is being treated with for a pneumonia with a Staphylococcus bacteremia. She will need 2 weeks of treatment. Day 1 will be the first day of her sterile blood cultures, which we have yet to obtain. There is a set of blood cultures pending at this point. For now, we will continue Ancef as ordered. A previous urine culture showed mixed madison. We will repeat the urine culture at this time to see if we can isolate any bacteria. These plans have been discussed with and recommended by Dr. Adame. COMORBIDITIES: For Ms. Begum include that she is elderly, with diabetes mellitus, and a previous stroke with contractures. Dictated by JOURDAN Vincent for Ariel Adame MD This chart was documented by, JOURDAN Vincent and accurately reflects the services performed, treatment plan and medical decisions as attested by the providers signature Ariel Adame MD. cc: MD Wilfredo Welsh MD MTDD
[2018-09-01] MEDS: KEFZOL 1 GM/D5W 1 GM/50 ML IVPB IV SCH ×4 (00:36→18:06)
[2018-09-01] MEDS: LOVENOX SUBQ SCH (01:38)
[2018-09-01] MEDS: PROTONIX IV SCH (01:38)
[2018-09-01] MEDS: DUONEB (A & A) INH SCH ×6 (02:47→23:01)
[2018-09-01] MEDS: NS 1,000 ML IV SCH (03:33)
[2018-09-01 05:15] LABS: BASO# 0.02 X1000 (0.0-0.2); BASO% 0.2 % (0.0-0.8); EOS# 0.01 X1000 (0.0-0.7); EOS% 0.1 % (0.0-10.0); HEMATOCRIT 29.5 % (37.0-47.0); HEMOGLOBIN 9.7 g/dL (12.0-16.0); IMM GRAN# 0.15 X1000 (0.0-0.04); IMM GRAN% 1.6 % (0.0-0.5); LYMPH# 1.51 X1000 (1.2-3.4); LYMPH% 16.2 % (20.5-51.1); MCH 31.9 PG (27-31); MCHC 32.9 g/dL (33-37); MONO# 0.62 X1000 (0.11-0.59); MONO% 6.7 % (1.7-9.3); MPV 9.7 FL (7.4-10.4); NEUT% 75.2 % (42.2-75.2); PLT 231 X1000 (130-400); RBC 3.04 XMIL (4.2-5.4); WBC 9.31 X1000 (4.8-10.8)
[2018-09-01 05:44] LABS: AGAP 11; BUN 13 mg/dL (8-22); CHLORIDE 107 mmol/L (98-107); COSMO 287; CREATININE 0.4 mg/dL (0.5-0.9); ESTIMATED GFR > 60; GLUCOSE 128 mg/dL (70-104); POTASSIUM 3.2 mmol/L (3.5-5.1); SODIUM 143 mmol/L (136-145); TCO2 25 mmol/L (25-35)
[2018-09-01] MEDS: HUMULIN R SUBQ SCH ×4 (06:09→20:45)
--- NOTE | 2018-09-01 07:36 | Diag Imaging Result Doc PS360 ---
CHEST-PORTABLE - 09/01/2018 INDICATION: pneumonia COMPARISON: 08/31/2018 FINDINGS: Lung volumes are low. There has been improvement in aeration of both lower lobes with decreased infiltrate or atelectasis and better visualization of the hemidiaphragms. Otherwise stable patchy nonspecific infiltrates throughout the lungs bilaterally. Heart size remains top normal. IMPRESSION: Improved aeration of the lower lobes. Electronically signed by Dylon Reddy 09/01/2018 7:33 AM
--- NOTE | 2018-09-01 08:06 | PROGRESS NOTE ---
DATE: 09/01/2018 SUBJECTIVE: Ms. Begum is doing fair. No high-grade fever or chills. Denied any nausea or vomiting. Mild cough. No expectoration. Tolerating feeding well. The patient is not communicating. OBJECTIVE: Vital Signs: As noted. Neck: Supple. Lungs: Bibasilar crepitations. CVS: S1 and S2 heard. Abdomen: Soft and scaphoid. PEG tube is in place. Nontender. No acute DVT. PET NUTRITION SPECIALIST: Alert, awake, not communicating. Uncooperative for detailed exam. LABORATORY: Lab data done today did reveal hypokalemia. BUN was 13, creatinine 0.4. Chest x-ray result is pending. ASSESSMENT: 1. Consideration of bronchopneumonia. 2. Sepsis. 3. History of CVA and dysphagia. 4. Expressive aphasia. 5. Hypothyroidism. 6. IDDM. PLAN: Continue IV antibiotics. Transfer patient to [facility] bed. Continue rest of the treatment. Supportive care. cc: Wilfredo Campo MD
[2018-09-01] MEDS: POTASSIUM CHLORIDE 20 MEQ/SWI 20 MEQ/100 ML IVPB IV SCH ×2 (08:39→10:50)
[2018-09-01] MEDS: LOPRESSOR IV PRN ×2 (14:30→20:44)
--- NOTE | 2018-09-01 17:35 | INFECTIOUS DISEASE PROGRESS NO ---
DATE: 09/01/2018 PRESENT ILLNESS: The patient has a Staphylococcus warneri bacteremia and possible pneumonia. MEDICATIONS: This is day 2 of Ancef 1 g IV every 8 hours. Day 1 is considered the first day that the blood cultures are sterile. PHYSICAL EXAMINATION: Vital Signs: Temperature is 99.4 degrees, pulse 121, respirations 18, blood pressure 127/76. General: This is a chronically ill-appearing, elderly female. She is lying in bed with multiple contractures. Head, eyes, ears, nose, and throat: There is no drainage from the nose or ears. I could not see in her mouth. Neck: There is limited range of motion. It did not seem to hurt the patient when I did move her neck. Lungs: Clear to auscultation. Cardiovascular: Heart rate is regular. Abdomen: Soft and nontender. Neurologic: The patient's eyes were open. She did not follow requests. She did not track with her eyes. There is no tremor. LABS AND X-RAY: Chest x-ray shows better aeration of both lungs but still bilateral infiltrates occur. The creatinine is 0.4. GFR is greater than 60. CBC shows a white count of 9310, hemoglobin 9.7, and platelet count 231,000. ASSESSMENT AND PLAN: Patient has Staphylococcus bacteremia and presumably pneumonia. I am going to continue the patient's antibiotics for a total of 2 weeks with day 1 being the first day the blood is sterile. I have ordered a procalcitonin level to see if the patient really does have pneumonia or is it more pulmonary venous congestion. COMORBIDITIES: She is elderly. She has diabetes and a prior stroke with contractures. cc: MD Wilfredo Welsh MD
[2018-09-02] MEDS: KEFZOL 1 GM/D5W 1 GM/50 ML IVPB IV SCH ×3 (00:22→18:10)
[2018-09-02] MEDS: NS 1,000 ML IV SCH ×2 (00:22→20:07)
[2018-09-02] MEDS: PROTONIX IV SCH (02:20)
[2018-09-02] MEDS: LOPRESSOR IV PRN ×3 (02:20→12:00)
[2018-09-02] MEDS: LOVENOX SUBQ SCH (02:20)
[2018-09-02] MEDS: DUONEB (A & A) INH SCH ×6 (03:23→23:24)
[2018-09-02 05:21] LABS: BASO# 0.02 X1000 (0.0-0.2); BASO% 0.2 % (0.0-0.8); EOS# 0.06 X1000 (0.0-0.7); EOS% 0.5 % (0.0-10.0); HEMATOCRIT 30.9 % (37.0-47.0); HEMOGLOBIN 10.1 g/dL (12.0-16.0); IMM GRAN# 0.15 X1000 (0.0-0.04); IMM GRAN% 1.2 % (0.0-0.5); LYMPH# 1.52 X1000 (1.2-3.4); MCH 31.9 PG (27-31); MCHC 32.7 g/dL (33-37); MCV 97.5 FL (81-99); MONO# 0.76 X1000 (0.11-0.59); MPV 9.3 FL (7.4-10.4); NEUT# 10.19 X1000 (1.4-6.5); NEUT% 80.1 % (42.2-75.2); PLT 283 X1000 (130-400); RBC 3.17 XMIL (4.2-5.4); RDW 13.8 % (11.5-14.5)
[2018-09-02 05:50] LABS: AGAP 10; ALB/GLOB RATIO 0.8; ALBUMIN 2.9 g/dL (3.5-5.0); ALKALINE PHOSPHATASE 65 U/L (32-104); BUN 14 mg/dL (8-22); CALCIUM 8.7 mg/dL (8.8-10.2); CHLORIDE 106 mmol/L (98-107); COSMO 280; CREATININE 0.4 mg/dL (0.5-0.9); ESTIMATED GFR > 60; GLUCOSE 104 mg/dL (70-104); GOT 38 U/L (10-30); GPT 17 U/L (10-36); MAGNESIUM 1.8 mg/dL (1.5-2.7); POTASSIUM 3.7 mmol/L (3.5-5.1); SODIUM 140 mmol/L (136-145); TCO2 24 mmol/L (25-35); TOTAL BILIRUBIN 0.24 mg/dL (0.20-1.00); TOTAL PROTEIN 6.4 g/dL (6.3-8.3)
[2018-09-02] MEDS: HUMULIN R SUBQ SCH ×4 (06:56→20:09)
--- NOTE | 2018-09-02 12:06 | PROGRESS NOTE ---
DATE: 09/02/2018 SUBJECTIVE: Ms. Begum is doing well. She is recovering from bilateral pneumonia and her chest x-ray shows improvement. She has less congestion today. OBJECTIVE: Vital signs are stable. Her heart rate is staying around 100. She is getting the PEG tube feeding. PLAN: We will increase the metoprolol to 5 mg IV q.6 hours today on a p.r.n. basis. -6 cc: MD Wilfredo Nunez MD
[2018-09-03] MEDS: PROTONIX IV SCH (02:45)
[2018-09-03] MEDS: LOVENOX SUBQ SCH (02:45)
[2018-09-03] MEDS: KEFZOL 1 GM/D5W 1 GM/50 ML IVPB IV SCH ×3 (02:46→17:53)
[2018-09-03] MEDS: DUONEB (A & A) INH SCH ×6 (03:23→23:01)
[2018-09-03] MEDS: TYLENOL LIQUID PEG PRN (04:07)
[2018-09-03] MEDS: LOPRESSOR IV PRN ×2 (04:07→18:18)
[2018-09-03] MEDS: HUMULIN R SUBQ SCH ×4 (06:01→20:01)
--- NOTE | 2018-09-03 08:19 | INFECTIOUS DISEASE PROGRESS NO ---
DATE: 09/03/2018 PRESENT ILLNESS: The patient has a Staphylococcus warneri bacteremia with possible pneumonia. MEDICATIONS: This is the 4th day of treatment with Ancef 1 g IV every 8 hours. Day 1 is considered the first day that the blood cultures are sterile. PHYSICAL EXAMINATION: Vital Signs: Temperature maximum was 101, pulse is 100, respirations 20, blood pressure 120/60. General: This is a chronically ill, elderly female. She is lying in bed. She has multiple contractures. Head, eyes, ears, nose and throat: Her eyes are open. There is no drainage from the nose or ears. Neck: The patient did not seem to be in any pain when I moved her neck. Lungs: Bilateral wheezing. Cardiovascular: Heart rate is regular and rapid. Abdomen: Soft and nontender. A G-tube is in place. The site is not erythematous. Neurologic: The patient is awake. She did not follow request to move her extremities. She did not talk. Bones, joints, muscles: Patient has diffuse contractures. Integument: No rash noted. LABORATORY AND X-RAY: Chest x-ray shows improvement in the bibasilar infiltrates. Blood and urine cultures are negative. CBC shows a white count of 12,700, hemoglobin 10.1, and platelet count 283,000. Creatinine is 0.4. GFR is greater than 60. AST is 38. ASSESSMENT AND PLAN: 1. The patient has Staph bacteremia and possible pneumonia. I am going to continue Ancef. I have ordered a procalcitonin level and it has not returned yet. I am going to repeat the patient's blood cultures and chest x-ray in view of the fact that she has an elevation in her white blood cell count,bilateral wheezes and fever. 2. Comorbidities: The patient is elderly. She has diabetes and a prior stroke. She has multiple contractures. cc: MD Wilfredo Welsh MD MTDD
--- NOTE | 2018-09-03 08:29 | PULMONOLOGY PROGRESS NOTE ---
DATE: 09/02/2018 SUBJECTIVE: The patient is awake and alert. She will focus on the examiner. She will not converse. OBJECTIVE: Vital Signs: Maximum temperature in the last 24 hours 99.8 degrees. BP 111/63, respiratory rate 20, oxygen saturation 90% on 4 L per nasal cannula. HEENT: Pupils are equal and reactive. Oropharynx is clear. Neck: Neck is supple. Chest: Reveals scattered rhonchi bilaterally. Cardiac exam: S1, S2. Abdomen: Soft with positive bowel sounds. Extremities: Reveal trace edema. LABORATORIES: White blood count 12.7, hemoglobin 10.1, platelet count 283,000. IMAGING STUDIES: No new chest x-ray. IMPRESSION: A 68 year old with pneumonia, respiratory failure, type 2 diabetes mellitus, remote stroke. RECOMMENDATIONS: 1. Continue oxygen as needed for hypoxemic respiratory failure. 2. Continue bronchial hygiene. 3. Continue antibiotics per Infectious Disease. cc: MD Wilfredo Lugo MD MTDD
--- NOTE | 2018-09-03 09:12 | Diag Imaging Result Doc PS360 ---
CHEST-1 VIEW - 09/03/2018 INDICATION: pneumonia COMPARISON: 09/01/2018 FINDINGS: There is improvement in the ill-defined bilateral predominantly basilar infiltrates. Heart size remains top normal. No pneumothorax or significant pleural effusion. IMPRESSION: Significant improvement in the bilateral basilar infiltrates. Electronically signed by Dylon Reddy 09/03/2018 9:09 AM
--- NOTE | 2018-09-03 12:20 | PROGRESS NOTE ---
DATE: 09/03/2018 Ms. Begum's vital signs are stable. She does not offer any complaints. Her lungs reveal less congestion. Chest x-ray shows improvement in the pneumonia. Blood pressure and heart rate are stable today. We will continue with the current management on her. -4 cc: MD Wilfredo Nunez MD
--- NOTE | 2018-09-03 15:49 | PULMONOLOGY PROGRESS NOTE ---
DATE: 09/03/2018 SUBJECTIVE: The patient is awake and alert. She does not answer questions but she does track the examiner. She has no increased work of breathing. OBJECTIVE: Vital Signs: The patient has been afebrile for the last 24 hours with a maximum temperature of 100.0 degrees, BP 104/48, heart rate 111, respiratory rate 23, oxygen saturation 100% on nasal cannula. HEENT: Pupils are equal and reactive. Oropharynx appears clear. Neck: Supple. Chest: Reveals decreased breath sounds in the bases. Cardiac Examination: S1 and S2. Abdomen: Soft. Extremities: Without edema. Laboratories: Chest x-ray reveals significant decrease in bilateral infiltrates over the last 48 hours. IMPRESSION: A 68-year-old with: 1. Pneumonia. 2. Respiratory failure. 3. Diabetes mellitus. 4. Remote history of stroke. DISCUSSION: A 68-year-old with pneumonia with overall radiographic improvement. RECOMMENDATIONS: 1. Continue bronchial hygiene. 2. Continue antibiotics per infectious disease. 3. Oxygen as needed to maintain saturation greater than 90%. cc: MD Wilfredo Lugo MD
[2018-09-03] MEDS: NS 1,000 ML IV SCH (17:53)
[2018-09-04] MEDS: KEFZOL 1 GM/D5W 1 GM/50 ML IVPB IV SCH ×3 (01:13→17:56)
[2018-09-04] MEDS: LOVENOX SUBQ SCH (01:33)
[2018-09-04] MEDS: PROTONIX IV SCH (01:33)
[2018-09-04] MEDS: DUONEB (A & A) INH SCH ×6 (03:24→23:32)
[2018-09-04] MEDS: LOPRESSOR IV PRN ×2 (04:43→14:12)
[2018-09-04] MEDS: HUMULIN R SUBQ SCH ×4 (06:28→21:15)
--- NOTE | 2018-09-04 06:58 | INFECTIOUS DISEASE PROGRESS NO ---
DATE: 09/04/2018 PRESENT ILLNESS: The patient has a Staph Warneri bacteremia with pneumonia. MEDICATIONS: The patient has been receiving Ancef for 5 days. PHYSICAL EXAMINATION: Vital Signs: Temperature is 98.6 degrees, pulse 113, respirations 23. pressure 102/50. General: This is a chronically ill elderly female. She has multiple contractures and seems to be somewhat dyspneic. Head/eyes/ears/nose/throat: She has no drainage from her nose or the ears. Her mouth remains closed. Neck: No stiffness. Lungs: There was bilateral wheezing. Cardiovascular: Heart rate is regular and rapid. Abdomen: Soft and nontender. A G-tube is in place. There is no drainage coming around the tube. Neurologic: The patient's eyes are open. She does not follow request to move her extremities. She did not track with her eyes. Bones, joints, muscles: The patient has multiple contractures of the arms and legs. LAB AND X-RAY: There is no new lab or x-ray for today. ASSESSMENT AND PLAN: Patient has Staph bacteremia with pneumonia. I plan to continue Ancef for a total of 14 days with day one being the first day repeat blood cultures are sterile. I have ordered a procalcitonin level and hopefully the results will be back today. COMORBIDITIES: She is elderly. She has diabetes and has previously had a stroke. ASSESSMENT AND PLAN: I am going to go ahead and order a CBC, BMP, blood cultures and a portable chest x-ray now. cc: MD Wilfredo Welsh MD MTDD
--- NOTE | 2018-09-04 07:29 | PROGRESS NOTE ---
DATE: 09/04/2018 SUBJECTIVE: Ms. Begum is doing fair. She is tolerating feeding well. She denied any fever or chills. At times, tachycardia. No nausea or vomiting. OBJECTIVE: Vital Signs: Noted. Neck: Supple. No JVD. Lungs: Bibasilar crepitations. Occasional wheezing. CVS: S1 and S2. Tachycardia. Abdomen: Soft, scaphoid. Bowel sounds present. PEG tube is in place. Extremities: The patient does have flexion contracture, both upper and lower limbs. THROUGH FREIGHT ENGINEER: Alert, awake, not communicating. PLAN: Discussed the patient's condition with Infectious Disease specialist, and also the plan. Consideration is: 1. Bronchopneumonia. Chest x-ray done yesterday showed improvement. 2. History of cerebrovascular accident, aphagia and dysphagia. 3. History of hypothyroidism. 4. Chronic pain. I am going to resume her pain patch. Continue rest of the treatment and supportive care. If clinical condition permits, plan is to discharge the patient back to rehab soon. cc: Wilfredo Campo MD
[2018-09-04 07:54] LABS: BASO# 0.01 X1000 (0.0-0.2); BASO% 0.1 % (0.0-0.8); EOS# 0.08 X1000 (0.0-0.7); EOS% 0.8 % (0.0-10.0); HEMATOCRIT 29.8 % (37.0-47.0); HEMOGLOBIN 9.5 g/dL (12.0-16.0); IMM GRAN# 0.07 X1000 (0.0-0.04); IMM GRAN% 0.7 % (0.0-0.5); LYMPH% 10.1 % (20.5-51.1); MCH 31.4 PG (27-31); MCHC 31.9 g/dL (33-37); MCV 98.3 FL (81-99); MONO# 0.76 X1000 (0.11-0.59); MONO% 7.7 % (1.7-9.3); MPV 9.4 FL (7.4-10.4); NEUT# 7.97 X1000 (1.4-6.5); NEUT% 80.6 % (42.2-75.2); PLT 351 X1000 (130-400); RBC 3.03 XMIL (4.2-5.4); WBC 9.89 X1000 (4.8-10.8)
[2018-09-04 08:06] LABS: AGAP 10; BUN 14 mg/dL (8-22); CALCIUM 8.3 mg/dL (8.8-10.2); CHLORIDE 103 mmol/L (98-107); COSMO 274; CREATININE 0.4 mg/dL (0.5-0.9); ESTIMATED GFR > 60; GLUCOSE 121 mg/dL (70-104); POTASSIUM 3.8 mmol/L (3.5-5.1); SODIUM 136 mmol/L (136-145); TCO2 23 mmol/L (25-35)
[2018-09-04] MEDS: DURAGESIC 25 MICROGM/HR PATCH TD SCH (08:26)
--- NOTE | 2018-09-04 09:04 | Diag Imaging Result Doc PS360 ---
CHEST-1 VIEW - 09/04/2018 INDICATION: pneumonia COMPARISON: 09/03/2018 FINDINGS: Pulmonary vessels are somewhat distended. There are some hazy nonspecific infiltrates or atelectasis in the lung bases. Heart size is top normal. No pneumothorax or large pleural effusion. IMPRESSION: Nonspecific findings. No change from prior. Electronically signed by Dylon Reddy 09/04/2018 9:02 AM
[2018-09-04] MEDS: NS 1,000 ML IV SCH (14:12)
--- NOTE | 2018-09-05 00:34 | PULMONOLOGY PROGRESS NOTE ---
DATE: 09/04/2018 SUBJECTIVE: The patient is awake upon my evaluation. She is not conversant. She does not appear to have increased work of breathing. OBJECTIVE: Vital Signs: Maximum temperature in the last 24 hours 99.7 degrees, BP 113/49, heart rate 116, respiratory rate 27, oxygen saturation 98%. HEENT: Pupils are equal and reactive. Oropharynx appears clear but dry. Neck: Is supple. Chest: Reveals shallow breath sounds with occasional rhonchi. Cardiac: S1-S2. Increased rate. Abdomen: Is soft with positive bowel sounds. Extremities: Reveal trace edema. DATA: Chest x-ray reveals minimal nonspecific basilar infiltrates which have not changed. LABORATORIES: White blood count 9.89, hemoglobin 9.5, platelet count 351,000. IMPRESSION: 1. A 68-year-old with pneumonia. 2. Respiratory failure. 3. Nonverbal from prior stroke. 4. Diabetes mellitus. 5. Continued overall improvement. RECOMMENDATION: 1. Continue bronchial hygiene. 2. Continue oxygen to maintain saturation greater than 90%. 3. Continue antibiotics. 4. Anticipate discharge back to the residential soon if she continues to improve and remains stable. cc: MD Wilfredo Lugo MD
[2018-09-05] MEDS: LOVENOX SUBQ SCH (01:35)
[2018-09-05] MEDS: SODIUM CHLORIDE 0.9% INJ SCH (01:35)
[2018-09-05] MEDS: PROTONIX IV SCH (01:35)
[2018-09-05] MEDS: KEFZOL 1 GM/D5W 1 GM/50 ML IVPB IV SCH ×2 (01:35→09:11)
[2018-09-05] MEDS: DUONEB (A & A) INH SCH ×6 (03:38→23:17)
[2018-09-05] MEDS: HUMULIN R SUBQ SCH ×4 (06:53→22:09)
--- NOTE | 2018-09-05 07:43 | INFECTIOUS DISEASE PROGRESS NO ---
DATE: 09/05/2018 PRESENT ILLNESS: The patient has Staphylococcus warneri bacteremia with pneumonia. MEDICATIONS: This is the sixth day of treatment with Ancef. The first day of treatment is considered to be the day that the patient's blood cultures first turned negative. PHYSICAL EXAMINATION: Vital Signs: Temperature is 97.8 degrees, pulse 97, respirations 17, blood pressure 97/46. General: This is a chronically ill-appearing, elderly female. She is in no acute distress. Head, Eyes, Ears, Nose, and Throat: She does not have any drainage from her nose or ears. When the patient breathes, she has pursed lips that come together. Lungs: There was bilateral rhonchi. Cardiovascular: Heart rate is regular. Abdomen: Soft and nontender. A G- tube is in place. The site is not draining or purulent. Neurologic: The patient's eyes are open. She does not react to verbal stimuli. Bones, Joints, Muscles: The patient has multiple contractures of the arms and legs. LAB AND X-RAY: Chest x-ray shows bibasilar infiltrates. CBC shows a white count of 9890, hemoglobin 9.5, and platelet count 351,000. Creatinine is 0.4. GFR is greater than 60. Procalcitonin is 0.45 which means that it is likely that the patient has pneumonia. ASSESSMENT AND PLAN: The patient has staphylococcus bacteremia with pneumonia. This is the sixth day of treatment. I planned to have 8 more days of treatment with Ancef through the vein. COMORBIDITIES: She is elderly and she is a diabetic. She has also had a stroke. cc: MD Wilfredo Welsh MD
[2018-09-05 07:54] LABS: INR 1.11; PROTIME 15.2 Seconds (11.0-16.0)
--- NOTE | 2018-09-05 07:58 | INFECTIOUS DISEASE PROGRESS NO ---
DATE: 09/05/2018 SUBJECTIVE: The patient is going to be discharged today to the correction. I have requested that a PICC be placed and the patient will receive Ancef for 8 more days. After the last dose of Ancef, I have ordered to remove the patient's PICC and on Tuesday, September 11, I have ordered that the patient have a CBC with differential and creatinine drawn. cc: MD Wilfredo Welsh MD
--- NOTE | 2018-09-05 08:27 | DISCHARGE SUMMARY ---
ADMISSION DATE: 08/28/2018 DISCHARGE DATE: 09/05/2018 FINAL DISCHARGE DIAGNOSES: 1. Sepsis due to Staphylococcus. 2. Pneumonia, respiratory failure. 3. Non-insulin dependent diabetes mellitus. 4. Hypothyroidism. 5. History of cerebrovascular accident. 6. 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 7. Decubitus on the heel. 8. Gastritis and reflux disease. 9. Hypothyroidism. 10. The patient has expressive aphasia. 11. Dysphagia. HOSPITAL COURSE: Ms Begum is a 68-year-old patient, resident of [facility], admitted with fever and chills. History part was limited. Initial urine was positive for UTI, but urine culture was mixed [place]. The patient's blood culture grew Staphylococcus warneri. Chest x-ray revealed pneumonia. The patient was treated with IV hydration, IV antibiotics. Initially, patient was admitted to ICU. ID consult obtained with Dr. Adame. The patient was seen by the oil field equipment mechanic supervisor and video production specialist. Also, sales performance manager saw the patient because of significant tachycardia. Her clinical condition stabilized and improved. The patient's chest x-ray also showed improvement. Recommendation was to treat her for 14 days of IV antibiotics. Discussed with Dr. Adame, and he is going to arrange for PICC line and recommendation for IV antibiotics. Dr. Hubbard evaluated the patient and he also recommends patient to be discharged. Dr. Adame was also in agreement. Patient received maximum benefit of hospitalization. At times, her heart rate was high which I was thinking could be due to chronic pain. I put her Duragesic patch back. We did have problem with PEG tube. I am going to get take away worker to evaluate patient. PHYSICAL EXAMINATION: Vital signs: Noted. Neck: Neck is supple. Lungs: The lungs with a few basilar crepitations. Heart: S1 and S2 heard. Abdomen: Soft. PEG tube is in place. Extremities: Flexion contracture of both upper and lower limbs. Pressure sore at the heel. ROAD FREIGHT CONDUCTOR: Alert and awake, but uncooperative for detailed exam. Patient does have expressive aphasia. LABORATORY DATA: Blood work done yesterday: Hemoglobin 9.5, hematocrit 29.8, WBC count 9.89, platelet count was 351. Electrolytes were fairly benign. BUN was 14, creatinine 0.4. Procalcitonin level was 0.43. Blood culture I already reported. Overall patient is doing better. IMAGING STUDIES: Chest x-ray showed nonspecific findings, but it did show improvement. DISCHARGE DISPOSITION: I am going to discharge patient to snf today. Discharge condition satisfactory. We resumed previous order. Continue IV antibiotics. Change position. Supportive care. cc: Wilfredo Campo MD
[2018-09-05] MEDS: NS 1,000 ML IV SCH ×2 (09:12→13:58)
[2018-09-05] MEDS ORDERED: NS 250 ML ONE (09:20)
[2018-09-05] MEDS: LOPRESSOR IV PRN ×2 (11:24→20:04)
--- NOTE | 2018-09-05 11:25 | GASTROENTEROLOGY CONSULTATION ---
DATE: 09/05/2018 REASON FOR CONSULTATION: Dysfunctional PEG tube. HISTORY OF PRESENT ILLNESS: Ms. 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 During her hospital course, she has been treated for staphylococcus bacteremia and pneumonia. GI was consulted for dysfunctional PEG tube. Per RN yesterday, the patient's nurse was unable to flush the PEG tube, cap kept coming off with flushing. This morning, the RN taking care of her today says that she has not had any problems flushing PEG tube, and the patient has been tolerating tube feeds. Obtaining collateral from the [facility] reveals that the patient actually has a Arias in her gastrostomy site, which is changed every 6 weeks at the [facility]. REVIEW OF SYSTEMS: Unable to get a review of systems from the patient as she is nonverbal. She does occasionally track with eyes. PAST MEDICAL HISTORY: History of stroke with aphagia, nonverbal, contractures in all of her extremities, diabetes type 2, hypothyroidism, hyperlipidemia. PAST SURGICAL HISTORY: Hysterectomy, throat surgery, gastrostomy tube placement. SOCIAL HISTORY: The patient is a permanent resident of [facility], where she has lived for 12 years. No alcohol, smoking, or drug use. There is a history of cerebral palsy. FAMILY HISTORY: Unable to obtain. ALLERGIES: No known drug allergies. MEDICATIONS: Reviewed in chart. PHYSICAL EXAMINATION: Vital Signs: Temperature 98.7 degrees, pulse 119, blood pressure 135/76, O2 saturation 97% on 2 L nasal cannula. General: The patient is chronically ill-appearing, awake, nonresponsive. HEENT: Dry eyes. Strabismus. Tracks intermittently. No icterus. Neck: No JVD. No lymphadenopathy. Cardiac: Tachycardic. Regular. Lungs: Coarse breath sounds bilaterally with crackles. No wheezing. Abdomen: Nondistended. Bowel sounds present. A 24- [place] Arias catheter and gastrostomy tube are clean, dry, intact. Flushes: Per RN, flushed at bedside, working properly. Extremities: Contractures in the upper extremities. Diffuse atrophy. Pressure ulcers with dressing on the heels. Neurologic: Tracts intermittently. Does not follow commands. No withdrawal to pain in the extremities. LABORATORY DATA: White count of 9.8, hemoglobin 9.5 which is near baseline, platelets of 351,000. Sodium 136, potassium 3.8, chloride 103, bicarb 23, BUN 14, creatinine 0.4, glucose 121. IMAGING: Chest x-ray from 09/04/2018 shows pulmonary vessels are somewhat distended. There are some hazy nonspecific infiltrates or atelectasis in the lung bases. Heart size is top normal. No pneumothorax or large pleural effusion. No specific findings. No change from prior. ASSESSMENT AND PLAN: Mr. Meenu Begum is an unfortunate, 68-year-old woman with history of stroke, probable quadriplegia, who was admitted for a urinary tract infection and pneumonia, treated with antibiotics per Infectious Disease. Gastroenterology was consulted for percutaneous endoscopic gastrostomy tube dysfunction. Exam is notable for Arias and the gastrostomy site. This was put in by the [facility] and is changed every 6 weeks there out of convenience. Tube was checked at the bedside with RN, and flushes properly, and the patient is tolerating tube feeds at this time. Recommend continuing using this tube as per [facility]'s protocol. Will sign off. Please call with any questions or concerns. cc: Wilfredo Campo MD
[2018-09-05] MEDS ORDERED: NS 1,000 ML IV ONE (12:01)
--- NOTE | 2018-09-05 12:22 | Diag Imaging Result Doc PS360 ---
EXAM: CHEST-PORTABLE 09/05/2018 HISTORY: resp failure TECHNIQUE: AP portable at 1208 COMMENT: There is some bibasilar atelectasis. This is somewhat worse on the right than on 09/04/2018. IMPRESSION: Worsened right lower lobe atelectasis versus pneumonia. Left lower lobe atelectasis versus pneumonia. Electronically signed by Santos [place] 09/05/2018 12:19 PM
[2018-09-05 12:23] LABS: ALLEN TEST NO; BE 3.5 mmoll (-3.0-3.0); BLOOD TYPE ARTERIAL; HCO3-(ACT) 27.7 mmoll (20.0-26.0); METHB 1.5 % (0.0-1.5); O2(CT) 15.1 mL/dL (15.0-23.0); O2HB 96.9 % (95.0-99.0); PCO2(98.6) 44 mmHg (35-45); PO2(98.6) 205 mmHg (60-100); SAMPLE BLOOD; SAO2 100.1 % (95.0-100.0); THB 10.7 g/dL (11.5-17.4); pH(98.6) 7.42 (7.35-7.45)
[2018-09-05 12:24] LABS: MODALITY NRB
[2018-09-05 12:32] LABS: BASO# 0.01 X1000 (0.0-0.2); BASO% 0.1 % (0.0-0.8); HEMATOCRIT 32.8 % (37.0-47.0); IMM GRAN# 0.07 X1000 (0.0-0.04); IMM GRAN% 0.4 % (0.0-0.5); LYMPH# 0.23 X1000 (1.2-3.4); LYMPH% 1.4 % (20.5-51.1); MCH 31.8 PG (27-31); MCHC 30.5 g/dL (33-37); MCV 104.5 FL (81-99); MONO# 0.58 X1000 (0.11-0.59); MONO% 3.5 % (1.7-9.3); MPV 8.9 FL (7.4-10.4); NEUT# 15.68 X1000 (1.4-6.5); NEUT% 94.6 % (42.2-75.2); PLT 397 X1000 (130-400); RBC 3.14 XMIL (4.2-5.4); RDW 14.8 % (11.5-14.5); WBC 16.57 X1000 (4.8-10.8)
[2018-09-05 12:55] LABS: AGAP 11; ALB/GLOB RATIO 0.8; ALBUMIN 2.8 g/dL (3.5-5.0); ALKALINE PHOSPHATASE 71 U/L (32-104); BUN 17 mg/dL (8-22); CALCIUM 8.4 mg/dL (8.8-10.2); CHLORIDE 103 mmol/L (98-107); COSMO 282; CREATININE 0.4 mg/dL (0.5-0.9); ESTIMATED GFR > 60; GLUCOSE 184 mg/dL (70-104); GOT 44 U/L (10-30); GPT 20 U/L (10-36); POTASSIUM 4.9 mmol/L (3.5-5.1); SODIUM 138 mmol/L (136-145); TCO2 24 mmol/L (25-35); TOTAL BILIRUBIN 0.17 mg/dL (0.20-1.00); TOTAL PROTEIN 6.2 g/dL (6.3-8.3)
[2018-09-05] MEDS ORDERED: VANCOMYCIN IV PER PHARMACY MISC SCH (17:15)
[2018-09-05] MEDS: ZOSYN 3.375 GM in NS 50 ML IV SCH ×2 (17:35→22:30)
--- NOTE | 2018-09-05 18:14 | PULMONOLOGY PROGRESS NOTE ---
DATE: 09/05/2018 INTERIM HISTORY: The patient was doing well on nasal cannula this morning. She subsequently developed audible rhonchi with acute oxygen desaturation along with hypotension. She was nasotracheally suctioned, but oxygen requirements increased to 100%. She has received a fluid bolus. She is being transferred to the ICU. OBJECTIVE: Vital Signs: BP 77/51, heart rate 96, respiratory rate 19, oxygen saturation 99%. HEENT: Pupils are equal. Oropharynx is dry. Neck: Supple. Chest: Reveals diffuse bilateral rhonchi. Cardiac: Increased rate, regular rhythm. Abdomen: Soft with PEG tube in position. Extremities: Reveal flexion contracture both upper extremities with decubitus on the left heel. LABORATORIES: White blood count increased to 16.6, hemoglobin 10.0, platelet count 397,000. Arterial blood gas on non-rebreather, pH 7.42, pCO2 of 44, PO2 of 205. Chest x-ray reveals worsened right lower lobe infiltrate with persistent infiltrate at the left base. IMPRESSION: This is a 68-year-old with a history of stroke, chronic debilitated status with expressive aphasia, contractures, who has developed acute hypoxemic respiratory failure with worsening infiltrates. The patient has had an aspiration event with acute decompensation and now has aspiration pneumonia again. The patient also has hemodynamic shock. RECOMMENDATION: 1. Transfer patient to ICU (this is in progress). 2. Initiate a fluid bolus. The patient may require vasopressors. 3. Increase oxygen for hypoxemic respiratory failure. 4. Collect nasotracheal suctioning to ensure current pathogens are being covered. 5. Prognosis is poor. cc: MD Wilfredo Lugo MD
[2018-09-05] MEDS ORDERED: VANCOMYCIN 1.2 GM in NS 250 ML IV ONE (20:00)
[2018-09-05] MEDS: D50W SYRINGE IV PRN ×2 (20:38→21:59)
[2018-09-06] MEDS: PROTONIX IV SCH (01:42)
[2018-09-06] MEDS: LOVENOX SUBQ SCH (01:42)
[2018-09-06] MEDS: LOPRESSOR IV PRN (01:43)
[2018-09-06] MEDS: DUONEB (A & A) INH SCH ×6 (03:20→22:55)
[2018-09-06] MEDS: ZOSYN 3.375 GM in NS 50 ML IV SCH ×2 (04:23→10:31)
[2018-09-06 04:39] LABS: ALLEN TEST YES; BE 1.9 mmoll (-3.0-3.0); BLOOD TYPE ARTERIAL; HCO3-(ACT) 26.4 mmoll (20.0-26.0); METHB 0.8 % (0.0-1.5); O2(CT) 12.9 mL/dL (15.0-23.0); O2HB 97.5 % (95.0-99.0); PCO2(98.6) 34 mmHg (35-45); PO2(98.6) 139 mmHg (60-100); SAMPLE BLOOD; SAO2 100.4 % (95.0-100.0); THB 9.2 g/dL (11.5-17.4); pH(98.6) 7.48 (7.35-7.45)
[2018-09-06 04:41] LABS: MODALITY VENTIMASK
[2018-09-06 06:38] LABS: BASO# 0.01 X1000 (0.0-0.2); BASO% 0.1 % (0.0-0.8); EOS# 0.05 X1000 (0.0-0.7); EOS% 0.3 % (0.0-10.0); HEMATOCRIT 29.4 % (37.0-47.0); HEMOGLOBIN 9.2 g/dL (12.0-16.0); IMM GRAN# 0.04 X1000 (0.0-0.04); IMM GRAN% 0.2 % (0.0-0.5); LYMPH% 6.6 % (20.5-51.1); MCH 31.3 PG (27-31); MCHC 31.3 g/dL (33-37); MONO# 0.99 X1000 (0.11-0.59); MPV 9.5 FL (7.4-10.4); NEUT# 14.38 X1000 (1.4-6.5); NEUT% 86.8 % (42.2-75.2); PLT 425 X1000 (130-400); RBC 2.94 XMIL (4.2-5.4); RDW 14.3 % (11.5-14.5); WBC 16.57 X1000 (4.8-10.8)
--- NOTE | 2018-09-06 06:41 | PROGRESS NOTE ---
DATE: 09/06/2018 SUBJECTIVE: Ms. Begum is doing fair. Yesterday, patient did have episode of hypoxemic respiratory failure. The patient was transiently hypotensive. The patient was given fluid bolus, high concentration of oxygen. Appreciate Dr. Hubbard's help managing patient with transfer patient to ICU. The patient is doing better. I did talk to patient's [id number] about her condition and prognosis. Son wants everything to be done. Patient did fairly well last night. No high- grade fever or chills. Her O2 saturation remained stable on 50% Ventimask. Patient did have tachycardia at times and we had to give her Lopressor. Her vital signs noted. The patient is not able to give any history. OBJECTIVE: Neck: Supple. No JVD. Lungs: Bilateral decreased air entry both the bases. Inspiratory crepitations both lower lung galo. Cardiovascular: S1 and S2 heard. Abdomen: Soft, scaphoid. PEG tube is in place. SOCIAL SCIENCES PROFESSOR: Alert, awake, uncooperative for detailed exam. Extremities: The patient does have flexion contracture of both upper and lower limbs. LABORATORY STUDIES: Blood gas done today, pH 7.48, PCO2 34, PO2 was 139. This was done 50% via Ventimask. CBC, CMP and chest x-ray result is pending. Considering aspiration pneumonia in the hospital, I changed antibiotics to vancomycin and Zosyn. Still patient being evaluated by Dr. Adame and we will follow his recommendations. We will continue bronchodilator treatment. Pulmonary toilet. Aspiration precautions. PROBLEM LIST: 1. Acute hypoxemic respiratory failure, possible aspiration pneumonia. 2. Sepsis. 3. Tachyarrhythmia. 4. Gastritis and reflux disease. 5. Insulin-dependent diabetes mellitus. cc: Wilfredo Campo MD
--- NOTE | 2018-09-06 07:15 | Diag Imaging Result Doc PS360 ---
EXAM: CHEST-PORTABLE 09/06/2018 HISTORY: dyspnea TECHNIQUE: AP portable at 0529 COMMENT: There is a left-sided PICC line with its tip just above the right atrium. There is some apparent atelectasis over the right hemidiaphragm and retrocardiac opacity on the left. This was also the case at the time the previous study of 09/05/2018 although the inspiration is better on today's study. IMPRESSION: Bibasilar atelectasis plus minus pneumonia. Electronically signed by Santos [place] 09/06/2018 7:13 AM
[2018-09-06 07:16] LABS: AGAP 11; ALB/GLOB RATIO 0.8; ALBUMIN 2.5 g/dL (3.5-5.0); ALKALINE PHOSPHATASE 57 U/L (32-104); BUN 15 mg/dL (8-22); CALCIUM 8.7 mg/dL (8.8-10.2); CHLORIDE 108 mmol/L (98-107); COSMO 280; CREATININE 0.5 mg/dL (0.5-0.9); ESTIMATED GFR > 60; GLUCOSE 67 mg/dL (70-104); GOT 45 U/L (10-30); GPT 21 U/L (10-36); MAGNESIUM 1.6 mg/dL (1.5-2.7); POTASSIUM 3.8 mmol/L (3.5-5.1); SODIUM 141 mmol/L (136-145); TCO2 22 mmol/L (25-35); TOTAL BILIRUBIN 0.27 mg/dL (0.20-1.00); TOTAL PROTEIN 5.5 g/dL (6.3-8.3)
[2018-09-06] MEDS: NS 1,000 ML IV SCH ×2 (07:17→23:31)
[2018-09-06] MEDS: HUMULIN R SUBQ SCH ×4 (07:18→20:24)
[2018-09-06] MEDS: MAXIPIME 1 GM in NS 50 ML IV SCH ×3 (13:44→20:32)
[2018-09-06] MEDS: VANCOMYCIN 1 GM/NS 1 GM/250 ML IVPB IV SCH (13:48)
--- NOTE | 2018-09-06 13:53 | INFECTIOUS DISEASE PROGRESS NO ---
DATE: 09/06/2018 PRESENT ILLNESS: The patient yesterday became hypoxemic and also hypotensive and she was shifted to the ICU. MEDICATIONS: I agree with Dr. Campo broadening the patient's antibiotic spectrum because of the patient's hypoxemia and hypotension. I agree with treating the patient with vancomycin and I have substituted cefepime for Zosyn because Zosyn has been shown to have a higher incidence of renal toxicity when Zosyn is combined with vancomycin as opposed to another beta- lactam antibiotic like cefepime. PHYSICAL EXAMINATION: Vital Signs: Temperature is 98.2 degrees, pulse 105, respirations 15, blood pressure 118/70. Generally: This is an ill-appearing elderly female. She is in no acute distress. HEENT: Head eyes, ears, nose and throat I did not notice any drainage from the nose or ears. I could not get a good look into her mouth, however. Lungs: Clear to auscultation. Cardiovascular: Heart rate is regular. Abdomen: Soft and not tender. A G- tube is in place. The tube site is not purulent or swollen. Neurologic: The patient just lies in bed, does not move and does not talk and does not respond to verbal stimuli. Extremities: The patient has diffuse contractures in her arms and legs. LAB AND X-RAY: The chest x-ray shows bibasilar atelectasis/pneumonia. Sputum Gram stain shows gram-positive cocci. The creatinine is 0.5. GFR is greater than 60. Liver function studies were normal except for an AST of 45. Blood gases show a pH of 7.48, a PO2 of 139, and a pCO2 of 34. [place] [address], hemoglobin 9.2, and platelet count of 425,000. ASSESSMENT AND PLAN: The patient has cleared her staphylococcus or bacteremia, but now she appears to have developed a bilaterally basilar pneumonia causing the patient to go into respiratory failure. COMORBIDITIES: The patient is elderly. She also is a diabetic and has had a stroke. cc: MD Wilfredo Welsh MD [facility] CENTERAlexis
[2018-09-06] MEDS ORDERED: CLINIMIX E 4.25%-5% SOLUTION 1,000 ML IV SCH (18:30)
--- NOTE | 2018-09-06 21:39 | PULMONOLOGY PROGRESS NOTE ---
DATE: 09/06/2018 SUBJECTIVE: The patient appears much more comfortable today. PHYSICAL EXAMINATION: Vital signs: Maximum temperature in the last 24 hours 99.8 degrees. Blood pressure 115/67, heart rate 105, respiratory rate 16, oxygen saturation 96% on 35% FiO2. HEENT: Pupils are equal. Oropharynx appears clear but dry. Neck: Supple. Chest: Occasional rhonchi bilaterally with better air flow. Cardiac exam: S1, S2. Abdomen: Soft. Positive bowel sounds. LABORATORIES: Chest x-ray reveals basilar infiltrates which are unchanged. LABORATORY DATA: Arterial blood gas on 50% Ventimask reveals a pH of 7.48, pCO2 of 34, pO2 of 139. Chemistries: Sodium 141, potassium 3.8, chloride 108, bicarbonate 22, BUN 15, creatinine 0.5. IMPRESSION: A 68-year-old with: 1. History of stroke. 2. Recurrent aspiration pneumonia. 3. Hemodynamic shock which has resolved. 4. Protein-calorie malnutrition. RECOMMENDATIONS: 1. Continue antibiotics under the direction of Dr. Ariel Adame. 2. Continue end-of-life discussions which are in progress. 3. Wean oxygen as tolerated. 4. Await nasotracheal suctioning cultures to see if antibiotic can be tailored by targeting specific pathogens. cc: MD Wilfredo Lugo MD
[2018-09-07] MEDS: PROTONIX IV SCH (02:58)
[2018-09-07] MEDS: DUONEB (A & A) INH SCH ×6 (03:20→22:49)
[2018-09-07] MEDS: MAXIPIME 1 GM in NS 50 ML IV SCH ×4 (05:26→20:32)
[2018-09-07] MEDS ORDERED: LASIX IV ONE (06:31)
[2018-09-07] MEDS: HUMULIN R SUBQ SCH ×4 (06:32→21:12)
[2018-09-07] MEDS: LOVENOX SUBQ SCH (06:59)
--- NOTE | 2018-09-07 07:03 | PROGRESS NOTE ---
DATE: 09/07/2018 SUBJECTIVE: Ms. Begum is doing fair. No high-grade fever or chills. Manager Specialty evaluated patient, and they are planning to change her PEG tube today, the patient is on Clinimix. No nausea or vomiting. No diarrhea. Patient cannot give any history. Because of expressive aphasia. Appreciate Pulmonary Critical Care help and Dr. Adame' help managing patient. OBJECTIVE: Vital signs: Noted. Neck: Supple. No JVD. Lungs: Decreased air entry both the bases. Cardiovascular: S1 and S2 heard. Abdomen: Soft, scaphoid. PEG tube is in place. Central nervous system: Patient is sleeping but arousable. The patient does have flexion contracture both upper and lower limbs. CONSIDERATION: Patient does have multiple medical problems. 1. Possible aspiration pneumonia. 2. The patient had a cerebrovascular accident. 3. Sepsis. 4. Respiratory failure. 5. Diabetes mellitus. PLAN: Continue current treatment. Close observation. I am going to repeat blood work for tomorrow. I am going to give her small dose of IV Lasix today. cc: Wilfredo Campo MD
[2018-09-07] MEDS: VANCOMYCIN 1 GM/NS 1 GM/250 ML IVPB IV SCH (07:52)
[2018-09-07] MEDS: DURAGESIC 25 MICROGM/HR PATCH TD SCH (07:59)
--- NOTE | 2018-09-07 10:16 | Diag Imaging Result Doc PS360 ---
CHEST/ABD TUBE PLACEMENT - 09/07/2018 INDICATION: PEG tube placement COMPARISON: None FINDINGS: There is contrast injection of the patient's G-tube. The contrast is within the stomach and proximal small bowel. No evidence of leak. IMPRESSION: No complication. Electronically signed by Dylon Reddy 09/07/2018 10:13 AM
--- NOTE | 2018-09-07 12:49 | GASTROENTEROLOGY PROGRESS NOTE ---
DATE: 09/07/2018 SUBJECTIVE: Patient resting in bed. We were called as the patient's PEG tube was not working. When I came in, I saw the patient had a Mcnally catheter in place. According to the nursing staff and records, she has a Mcnally [facility]. The mcnally was not able to flushed so we replaced it with a 24-Nepalese replacement PEG at bedside. We cleaned the area on the abdomen with Betadine and under sterile conditions, we removed the old Mcnally and then we inserted a 24-Nepalese placement PEG and the balloon was inflated with 20 mL normal saline. The external was marked at 4 cm. The patient tolerated this very well. We will obtain a Gastrografin study. OBJECTIVE: Vital signs: Temperature 98.4, pulse 110, respiratory 22, blood pressure of 112/69, saturating 100% on 3 nasal cannula. Body weight of 132 pounds 4.8 ounces. General Appearance: Moderately built and poorly nourished, lying in bed, in no acute distress. HEENT: Pale. No icterus. Neck: Supple. Abdomen: The replacement PEG in place. No guarding, no rebound. Extremities: She has contractures from recent stroke. Neurologic: She is nonverbal. LABORATORY DATA: Her hemoglobin and hematocrit yesterday was 9.2 and 29.4, white count of 16.57, platelet count of 425,000. Her glucose today 147. MICROBIOLOGY STUDIES: Sputum showed gram-negative rods. IMAGING: The Gastrografin study is now back and it shows proper placement and the contrast is within the stomach and proximal small bowel. No evidence of any leak was noted. IMPRESSION AND PLAN: 1. Cerebrovascular accident causing dysphagia and requiring a percutaneous endoscopic gastrostomy tube placement. We have replaced it at bedside. The PEG tube is in proper position and we can restart her tube feeds per the nutrition team. 2. Aspiration precautions to continue. 3. She has a possible aspiration pneumonia. She is being managed the primary team. 4. Diabetes mellitus, She is on sliding-scale regular insulin. 5. Respiratory failure. She is on albuterol and ipratropium nebulizers. 6. Deep venous thrombosis prophylaxis. Lovenox. 7. Gastrointestinal prophylaxis. PPIs in the form Protonix once daily. The above plans discussed with the patient and nurse at bedside. All questions answered. Please call us with any further questions. cc: MD Wilfredo Cadena MD MTDD
--- NOTE | 2018-09-07 13:58 | PULMONOLOGY PROGRESS NOTE ---
DATE: 09/07/2018 SUBJECTIVE: Patient's eyes are open. She has no increased work of breathing. She did have an occlusion of her PEG tube which has been replaced. OBJECTIVE: Vital Signs: The patient has been afebrile for the last 24 hours. Blood pressure 120/67, heart rate 114, respiratory rate 22, oxygen saturation 100% on nasal cannula. HEENT: Pupils are equal. Oropharynx appears clear. Neck: Supple. Chest: Coarse rhonchi bilaterally. Cardiac: S1, S2. Abdomen: Soft with positive bowel sounds. DIAGNOSTIC STUDIES: Sputum culture reveals 3+ gram-negative hesham. X-RAY for NG tube placement reveals bibasilar infiltrates with NG in position, but lungs are only barely visualized. IMPRESSION: 1. A 68-year-old with recurrent aspiration pneumonia with gram-negative organism identified on current sputum cultures. 2. History of stroke with aphagia. 3. Protein-calorie malnutrition. 4. Hemodynamic shock with resolution. Overall she continues to improve. RECOMMENDATION: 1. Continue antibiotics to be managed with information provided by cultures when available. 2. Agree with current resuscitation status. 3. Tube feeds as tolerated. 4. Consider transfer back to the floor if she remains stable. cc: MD Wilfredo Lugo MD MTDAlexis
--- NOTE | 2018-09-07 17:28 | INFECTIOUS DISEASE PROGRESS NO ---
DATE: 09/07/2018 PRESENT ILLNESS: Ms Begum is being treated for a Staphylococcus warneri bacteremia and is growing a gram-negative hseham in her sputum with atelectasis/pneumonia seen on the chest x-ray yesterday. MEDICATIONS: She is receiving cefepime 1 g IV every 8 hours and IV vancomycin per pharmacy. PHYSICAL EXAMINATION: Vital Signs: Temperature is 99.3 degrees, pulse rate 106, respiratory rate 17, blood pressure 113/65, O2 saturation 100% on 3 L nasal cannula. General: This is a chronically ill-appearing, elderly female. She is currently lying in the bed, in no acute distress. HEENT: She refuses to open her mouth. Conjunctivae are pale. Respiratory: Lung sounds have some coarse rhonchi noted bilaterally. Cardiovascular: Heart rate and rhythm are regular and tachycardic, sinus tachycardia on the monitor. She has a generalized 1+ pitting edema to her extremities. Abdomen: Soft, round, nontender. Bowel sounds are active. There is a gastrostomy tube in place with no purulence or edema at this site. She is receiving tube feedings. Neurologic: She is awake, alert, and tracking me with her eyes; however, she is nonverbal and has multiple contractures to arms and legs. DIAGNOSTIC STUDIES: No lab work today. However, her sputum has grown a gram- negative hesham. Previously her blood cultures grew a Staphylococcus warneri. No imaging reports today. ASSESSMENT AND PLAN: Ms. Begum is being treated for a Staphylococcus warneri bacteremia. Based on her sterile blood cultures, today is day 8 of her 14-day treatment. She has been changed to broad-spectrum antibiotics due to possible pneumonia. Chest x-ray and blood work have been ordered for tomorrow. There was also a gram-negative hesham growing in her sputum which should be covered well with cefepime. Pending further cultures, we will continue vancomycin and cefepime as ordered. These plans have been discussed with and recommended by Dr. Adame. COMORBIDITIES: For Ms. Begum include she is elderly with diabetes mellitus and a previous stroke with contractures and aphasia. Dictated by JOURDAN Vincent for Ariel Adame MD This chart was documented by, JOURDAN Vincent and accurately reflects the services performed, treatment plan and medical decisions as attested by the providers signature Ariel Adame MD. cc: MD Wilfredo Welsh MD MTDD
[2018-09-08] MEDS: VANCOMYCIN 1 GM/NS 1 GM/250 ML IVPB IV SCH ×2 (02:17→22:00)
[2018-09-08] MEDS: PROTONIX IV SCH (02:17)
[2018-09-08] MEDS: DUONEB (A & A) INH SCH ×6 (02:46→23:33)
[2018-09-08] MEDS: MAXIPIME 1 GM in NS 50 ML IV SCH ×3 (05:02→20:39)
[2018-09-08] MEDS: LOVENOX SUBQ SCH (05:02)
[2018-09-08 06:19] LABS: BASO# 0.02 X1000 (0.0-0.2); BASO% 0.2 % (0.0-0.8); EOS# 0.07 X1000 (0.0-0.7); EOS% 0.9 % (0.0-10.0); HEMOGLOBIN 8.3 g/dL (12.0-16.0); LYMPH# 0.85 X1000 (1.2-3.4); LYMPH% 10.4 % (20.5-51.1); MCHC 30.7 g/dL (33-37); MCV 100.7 FL (81-99); MONO# 0.58 X1000 (0.11-0.59); MONO% 7.1 % (1.7-9.3); MPV 8.9 FL (7.4-10.4); NEUT# 6.62 X1000 (1.4-6.5); NEUT% 81.4 % (42.2-75.2); PLT 360 X1000 (130-400); RBC 2.68 XMIL (4.2-5.4); RDW 14.7 % (11.5-14.5); WBC 8.14 X1000 (4.8-10.8)
[2018-09-08] MEDS: HUMULIN R SUBQ SCH ×4 (06:23→22:40)
[2018-09-08 06:38] LABS: AGAP 9; ALBUMIN 2.7 g/dL (3.5-5.0); ALKALINE PHOSPHATASE 55 U/L (32-104); BUN 15 mg/dL (8-22); CALCIUM 8.5 mg/dL (8.8-10.2); CHLORIDE 111 mmol/L (98-107); COSMO 298; CREATININE 0.4 mg/dL (0.5-0.9); ESTIMATED GFR > 60; GLUCOSE 120 mg/dL (70-104); GOT 49 U/L (10-30); GPT 22 U/L (10-36); MAGNESIUM 1.8 mg/dL (1.5-2.7); POTASSIUM 3.3 mmol/L (3.5-5.1); SODIUM 149 mmol/L (136-145); TCO2 29 mmol/L (25-35); TOTAL BILIRUBIN 0.17 mg/dL (0.20-1.00); TOTAL PROTEIN 5.5 g/dL (6.3-8.3)
--- NOTE | 2018-09-08 07:09 | Diag Imaging Result Doc PS360 ---
EXAM: CHEST-PORTABLE 09/08/2018 HISTORY: dyspnea TECHNIQUE: AP portable at 0541 COMMENT: There is bibasilar opacity which has worsened since 09/06/2018. The left PICC line remains in place. IMPRESSION: Worsened bibasilar atelectasis and/or pneumonia. Electronically signed by Santos Canada 09/08/2018 7:06 AM
--- NOTE | 2018-09-08 07:33 | PROGRESS NOTE ---
DATE: 09/08/2018 SUBJECTIVE: Ms Begum is doing fair. Not communicating. The patient had PEG tube changed yesterday. She is tolerating feeding well. Her blood pressure this morning was low. Heart rate was better. No high-grade fever or chills. No nausea or vomiting. The patient did not have bowel movement lately. I am going to resume her lactulose.Neck: Supple. No JVD. Lungs: Decreased air entry at both bases. Cardiovascular: S1 and S2 heard. Abdomen: Soft. PEG tube is in place. Extremities: The patient does have flexion contracture of lower limb. Central nervous system: Alert, awake, uncooperative for detailed exam. ASSESSMENT AND PLAN: Overall, patient is doing fair. Overall prognosis fair to guarded. Family requested DNR, which is reasonable considering overall patient health and quality of life. I am going to give her IV fluid. Continue rest of the treatment. Close observation. I am planning to transfer her to [facility] bed. cc: Wilfredo Campo MD
[2018-09-08] MEDS: SYNTHROID GT SCH (08:41)
[2018-09-08] MEDS: CALMOSEPTINE OINTMENT TOP SCH ×2 (08:41→20:39)
[2018-09-08] MEDS: LACTULOSE GT SCH (08:41)
[2018-09-08] MEDS: ZOLOFT GT SCH (08:41)
[2018-09-08] MEDS: POTASSIUM CHLORIDE 20 MEQ/SWI 20 MEQ/100 ML IVPB IV SCH ×2 (08:41→10:58)
[2018-09-08] MEDS ORDERED: NON-FORMULARY MED (Protein Hydrolysate,Milk [Liquid Protein Fortifier] 30 ML) PEG SCH (09:00)
--- NOTE | 2018-09-08 09:53 | INFECTIOUS DISEASE PROGRESS NO ---
DATE: 09/08/2018 PRESENT ILLNESS: Ms. Begum is being treated for a staph Warneri bacteremia and Klebsiella pneumonia. MEDICATION: She is receiving cefepime 1 gram IV every 8 hours and IV vancomycin per pharmacy dosing. Today is day 3 of these medications, and day 9 of her treatment for bacteremia. PHYSICAL EXAMINATION: Vital Signs: Temperature is 98.1 degrees, pulse rate 102 respiratory rate 15, blood pressure 95/53, O2 saturation is 98% on 2 L nasal cannula. General: This is a chronically ill-appearing elderly female. She is lying in the bed currently in no acute distress. HEENT: Atraumatic, normocephalic. Oral mucous membranes pink and moist. Conjunctivae are pale. Cardiovascular: Heart rate and rhythm are regular and fast, sinus tach on the monitor. There is a 1+ edema noted to the all extremities. Respiratory: Lung sounds are coarse rhonchi noted in the upper lobes. Diminished in the bases. Abdomen: Soft, round and nontender. Bowel sounds are active. There is a PEG tube in place. The site has a small amount of bloody drainage but no erythema or edema. She is receiving tube feedings. Neurologic: She is awake, and alert and will track with her eyes but does not follow commands. Extremities: Extremities are stiff and contracted. There is PICC line in place to the left upper arm. The site is without edema, erythema. LABORATORY AND X-RAY: Today her white count is 8.14, hemoglobin 8.3, platelet count 360,000. Creatinine is 0.4, estimated GFR is greater than 60. Total bilirubin is 0.17, AST 49, ALT 22, alkaline phosphatase 55. Her sputum has grown Klebsiella pneumoniae. Previously her blood cultures have grown a Staph Warneri. Chest x-ray today shows bibasilar opacity which is worsened. ASSESSMENT AND PLAN: Ms Begum is being treated for a staph Warneri bacteremia. Today is day 9 of her 14 day treatment. She is also being treated for Klebsiella pneumonia using cefepime. There is a mild worsening on the chest x-ray. Today however, her white count has normalized. For now, we will continue her vancomycin and cefepime as ordered. These plans have been discussed with and recommended by Dr. Adame. COMORBIDITIES: For Ms. Begum include she is elderly with diabetes mellitus and a previous stroke with contractures and aphasia. Dictated by JOURDAN Vincent for Ariel Adame MD This chart was documented by, JOURDAN Vincent and accurately reflects the services performed, treatment plan and medical decisions as attested by the providers signature Ariel Adame MD. cc: MD Wilfredo Welsh MD [facility]
--- NOTE | 2018-09-08 17:03 | PULMONOLOGY PROGRESS NOTE ---
DATE: 09/08/2018 SUBJECTIVE: The patient is awake, alert. She intermittently tracks the practitioner. She does not follow commands. OBJECTIVE: Vital Signs: The patient has been afebrile for the last 24 hours. Blood pressure is 91/62, heart rate 100, respiratory rate 12, oxygen saturation 99% on 3 L per nasal cannula. HEENT: Pupils are equal and reactive. Oropharynx is clear. Neck: Supple. Chest: Reveals scatter rhonchi bilaterally. Cardiac exam: S1, S2. Abdomen: Soft. Extremities: Reveal flexion contractures with chronic edema. LABORATORIES: Sputum culture reveals Klebsiella pneumonia. IMAGING: Chest x-ray reveals mild worsening of the left base. IMPRESSION: A 68-year-old with recurrent aspiration pneumonia, Klebsiella pneumonia, history of stroke, protein calorie malnutrition. Hemodynamically, she has improved with resolution of her shock. RECOMMENDATIONS: 1. Agree with current antibiotic regimen, which is covering her Klebsiella pneumonia. 2. Continue tube feeds as tolerated. 3. Anticipate transfer back to the floor today. Overall, her prognosis remains poor. cc: MD Wilfredo Lugo MD
[2018-09-09] MEDS: LOPRESSOR IV PRN (02:54)
[2018-09-09] MEDS: PROTONIX IV SCH (02:54)
[2018-09-09] MEDS: DUONEB (A & A) INH SCH ×6 (03:38→23:21)
[2018-09-09] MEDS: MAXIPIME 1 GM in NS 50 ML IV SCH ×3 (06:03→22:53)
[2018-09-09] MEDS: LOVENOX SUBQ SCH (06:04)
[2018-09-09] MEDS: HUMULIN R SUBQ SCH ×4 (06:34→22:20)
[2018-09-09] MEDS: LACTULOSE GT SCH (08:40)
[2018-09-09] MEDS: ZOLOFT GT SCH (08:40)
[2018-09-09] MEDS: CALMOSEPTINE OINTMENT TOP SCH ×2 (08:40→22:52)
[2018-09-09] MEDS: SYNTHROID GT SCH (08:40)
--- NOTE | 2018-09-09 12:46 | PROGRESS NOTE ---
DATE: 09/09/2018 SUBJECTIVE: Ms. Begum is doing fair. The patient is more alert and awake today. No nausea or vomiting. Tolerating feeding well. OBJECTIVE: Vitals: She remains afebrile. Vital signs noted. Neck: Supple. No JVD. Lungs: Decreased air entry to both bases. CVS: S1 and S2 heard. Abdomen: Soft, scaphoid. Bowel sounds present. Extremities: Minimal swelling of both feet. RETAIL OFFICE MANAGER: The patient is more alert, awake, but not communicating. LABORATORY DATA: Her laboratory data done yesterday noted hemoglobin 8.3, hematocrit 27. Potassium was 3.3. I supplemented potassium. CONSIDERATION: 1. Pneumonia due to Klebsiella. 2. CVA. 3. Expressive aphasia. 4. NIDDM. PLAN: I am going to recheck blood work tomorrow. I resumed her lactulose and Synthroid. The patient is waiting for CIC bed. PROGNOSIS: Overall prognosis is fair to guarded. Family is aware of the prognosis. cc: Wilfredo Campo MD
[2018-09-09] MEDS: VANCOMYCIN 1 GM/NS 1 GM/250 ML IVPB IV SCH (14:00)
--- NOTE | 2018-09-09 15:57 | PULMONOLOGY PROGRESS NOTE ---
DATE: 09/09/2018 SUBJECTIVE: The patient is awake and alert. She tracks the practitioner. She does not follow commands. OBJECTIVE: Vital Signs: Oxygen saturation 97% on 1 L per nasal cannula. No increased work of breathing. Heart rate 94, respiratory rate 12, blood pressure 103/61. She has been afebrile for the last 24 hours. HEENT: Pupils are equal and reactive. Oropharynx appears clear. Neck: Neck is supple. Chest: Chest reveals occasional rhonchi bilaterally. Cardiac exam: S1, S2. Abdomen: Soft with positive bowel sounds. Extremities: Without edema. LABORATORIES: No new CBC. No new chemistries. IMPRESSION: A 68 year old with: 1. Recurrent aspiration pneumonia (Klebsiella pneumonia identified on cultures). 2. Stroke with chronic debilitation. 3. Protein calorie malnutrition. RECOMMENDATION: 1. Continue current antibiotic regimen for Klebsiella pneumonia. 2. Continue tube feeds as tolerated. 3. Follow up chest x-ray tomorrow morning. cc: MD Wilfredo Lugo MD
[2018-09-10] MEDS: DUONEB (A & A) INH SCH ×6 (03:15→23:18)
[2018-09-10] MEDS: MAXIPIME 1 GM in NS 50 ML IV SCH ×3 (05:37→21:41)
[2018-09-10] MEDS: SODIUM CHLORIDE 0.9% INJ SCH (05:37)
[2018-09-10] MEDS: LOVENOX SUBQ SCH (05:37)
[2018-09-10] MEDS: PROTONIX IV SCH (05:37)
[2018-09-10 06:06] LABS: BASO# 0.01 X1000 (0.0-0.2); BASO% 0.2 % (0.0-0.8); EOS# 0.08 X1000 (0.0-0.7); EOS% 1.2 % (0.0-10.0); HEMATOCRIT 27.3 % (37.0-47.0); HEMOGLOBIN 8.3 g/dL (12.0-16.0); LYMPH# 0.83 X1000 (1.2-3.4); LYMPH% 12.6 % (20.5-51.1); MCH 31.1 PG (27-31); MCHC 30.4 g/dL (33-37); MCV 102.2 FL (81-99); MONO# 0.56 X1000 (0.11-0.59); MONO% 8.5 % (1.7-9.3); MPV 9.2 FL (7.4-10.4); NEUT# 5.13 X1000 (1.4-6.5); NEUT% 77.5 % (42.2-75.2); PLT 341 X1000 (130-400); RBC 2.67 XMIL (4.2-5.4); RDW 14.9 % (11.5-14.5); WBC 6.61 X1000 (4.8-10.8)
[2018-09-10 06:44] LABS: AGAP 9; ALB/GLOB RATIO 0.9; ALBUMIN 2.7 g/dL (3.5-5.0); ALKALINE PHOSPHATASE 55 U/L (32-104); BUN 13 mg/dL (8-22); CALCIUM 8.5 mg/dL (8.8-10.2); CHLORIDE 105 mmol/L (98-107); COSMO 282; CREATININE 0.4 mg/dL (0.5-0.9); ESTIMATED GFR > 60; GLUCOSE 111 mg/dL (70-104); GOT 45 U/L (10-30); GPT 23 U/L (10-36); POTASSIUM 4.2 mmol/L (3.5-5.1); SODIUM 141 mmol/L (136-145); TCO2 27 mmol/L (25-35); TOTAL BILIRUBIN < 0.15 mg/dL (0.20-1.00); TOTAL PROTEIN 5.6 g/dL (6.3-8.3)
[2018-09-10] MEDS: HUMULIN R SUBQ SCH ×4 (07:16→22:46)
--- NOTE | 2018-09-10 07:49 | Diag Imaging Result Doc PS360 ---
EXAM: CHEST-PORTABLE INDICATION: abnormal exam TECHNIQUE: One view COMPARISON: 09/08/2018 FINDINGS: The left PICC line is in stable position. There has been interval improvement of the opacification at the left lung base. At the right basilar opacity is essentially stable. No new consolidation is identified. Cardiac silhouette is stable. IMPRESSION: Improvement at the left lung base as described. Electronically signed by Ambrosio Workman 09/10/2018 7:46 AM
[2018-09-10] MEDS: DURAGESIC 25 MICROGM/HR PATCH TD SCH (08:59)
[2018-09-10] MEDS: SYNTHROID GT SCH (08:59)
[2018-09-10] MEDS: LACTULOSE GT SCH (08:59)
[2018-09-10] MEDS: CALMOSEPTINE OINTMENT TOP SCH ×2 (08:59→22:46)
[2018-09-10] MEDS: VANCOMYCIN 1 GM/NS 1 GM/250 ML IVPB IV SCH (08:59)
[2018-09-10] MEDS: ZOLOFT GT SCH (08:59)
[2018-09-10 10:30] LABS: RETIC% 2.54 % (0.8-2.1); RETIC-HE 33.5 PG (28.2-36.6)
--- NOTE | 2018-09-10 10:33 | PROGRESS NOTE ---
DATE: 09/10/2018 SUBJECTIVELY: Ms. Begum is doing better. Tolerating feeding well. OBJECTIVE: Vitals: She denied any high-grade fever or chills. Temperature maximum was 99.4 degrees. At times, patient is tachycardic, not able to give any history. The patient did have a bowel movement. Her vital signs noted. Lungs: Decreased air entry both bases. CVS: S1 and S2 heard. Abdomen: Soft, scaphoid. Bowel sounds present. Musculoskeletal: Flexion contracture both lower and upper limbs. DIRECTOR OF HOTEL OPERATIONS: The patient is alert, awake, and cooperative for detailed exam. LABORATORY DATA: Noted. Hemoglobin is 8.3, hematocrit 27.3, WBC count 6.61. Platelets 341,000. I did not see any evidence of apparent external bleeding. Electrolytes noted. ASSESSMENT AND PLAN: The patient does have significant cardiopulmonary compromise. I think patient will be benefited from 1 unit of packed RBC. I am going to check her reticulocyte count and iron study. Continue the rest of the treatment and close observation. cc: Wilfredo Campo MD
[2018-09-10 10:39] LABS: IRON SATURATION 19 %; TIBC 148 ug/dL; TOTAL IRON 28 ug/dL (49-151); UNBOUND IRON 120 ug/dL (112-346)
[2018-09-10 10:58] LABS: FERRITIN 294 ng/mL (13-150)
--- NOTE | 2018-09-10 14:34 | PULMONOLOGY PROGRESS NOTE ---
DATE: 09/10/2018 INTERIM HISTORY: Patient has been moved back to the CIC unit. She is awake. She intermittently tracks the examiner. She does not follow commands. OBJECTIVE: Vital Signs: The patient has been afebrile for the last 24 hours. Blood pressure 110/55, heart rate 84, respiratory rate 16, oxygen saturation 100% on 3 L per nasal cannula. HEENT: Pupils are equal and reactive. Oropharynx appears clear. Neck: Supple. Chest: Reveals shallow breath sounds bilaterally with occasional rhonchi. Cardiac exam: S1, S2. Abdomen: Soft, with positive bowel sounds. Extremities: Unchanged. LABORATORIES: Chest x-ray reveals some decreased infiltrate at the left base with stable infiltrate at the right base. White blood count 6.61, hemoglobin 8.3, platelet count 341,000. Sodium 141, potassium 4.2, chloride 105, bicarbonate 27, BUN 13, creatinine 0.4. IMPRESSION: This is a 68-year-old with: 1. Recurrent aspiration with gram-negative pneumonia. 2. Protein calorie malnutrition. 3. Stroke with chronic debilitation. RECOMMENDATION: 1. Continue current antibiotic regimen. 2. Continue tube feeds. cc: MD Wilfredo Lugo MD
[2018-09-10] MEDS ORDERED: NS 500 ML IV SCH (22:00)
[2018-09-10] MEDS: TYLENOL LIQUID PEG PRN (22:27)
[2018-09-11] MEDS: VANCOMYCIN 1 GM/NS 1 GM/250 ML IVPB IV SCH ×2 (01:09→21:07)
[2018-09-11] MEDS: DUONEB (A & A) INH SCH ×6 (03:19→23:00)
[2018-09-11] MEDS: MAXIPIME 1 GM in NS 50 ML IV SCH ×3 (05:13→21:07)
[2018-09-11] MEDS: LOVENOX SUBQ SCH (05:13)
[2018-09-11] MEDS: PROTONIX IV SCH (05:15)
[2018-09-11 05:45] LABS: BASO# 0.01 X1000 (0.0-0.2); BASO% 0.1 % (0.0-0.8); EOS# 0.06 X1000 (0.0-0.7); EOS% 0.9 % (0.0-10.0); HEMATOCRIT 30.7 % (37.0-47.0); HEMOGLOBIN 9.6 g/dL (12.0-16.0); LYMPH# 0.94 X1000 (1.2-3.4); LYMPH% 13.6 % (20.5-51.1); MCH 30.7 PG (27-31); MCHC 31.3 g/dL (33-37); MCV 98.1 FL (81-99); MONO# 0.51 X1000 (0.11-0.59); MONO% 7.4 % (1.7-9.3); MPV 9.1 FL (7.4-10.4); NEUT# 5.41 X1000 (1.4-6.5); PLT 312 X1000 (130-400); RBC 3.13 XMIL (4.2-5.4); RDW 16.9 % (11.5-14.5); WBC 6.93 X1000 (4.8-10.8)
[2018-09-11 05:58] LABS: AGAP 8; ALB/GLOB RATIO 0.9; ALBUMIN 2.8 g/dL (3.5-5.0); ALKALINE PHOSPHATASE 62 U/L (32-104); BUN 13 mg/dL (8-22); CHLORIDE 105 mmol/L (98-107); COSMO 282; CREATININE 0.4 mg/dL (0.5-0.9); ESTIMATED GFR > 60; GLUCOSE 103 mg/dL (70-104); GOT 40 U/L (10-30); GPT 23 U/L (10-36); POTASSIUM 4.3 mmol/L (3.5-5.1); SODIUM 141 mmol/L (136-145); TCO2 28 mmol/L (25-35); TOTAL BILIRUBIN 0.28 mg/dL (0.20-1.00); TOTAL PROTEIN 5.8 g/dL (6.3-8.3)
[2018-09-11] MEDS: HUMULIN R SUBQ SCH ×4 (06:30→21:07)
--- NOTE | 2018-09-11 06:51 | PROGRESS NOTE ---
DATE: 09/11/2018 SUBJECTIVE: Ms. Begum is doing fair. She received 1 unit of packed RBC. She tolerated it well. No high-grade fever or chills. T-max was 100.3 degrees. The patient is not able to give good history. No diarrhea. The patient is on antibiotics. OBJECTIVE: Vital Signs: Her vital signs noted. Neck: Neck is supple. No JVD. Lungs: Decreased air entry in both the bases. Few basal crepitations. CVS: S1 and S2 heard. Abdomen: Soft, scaphoid. Bowel sounds present. CELL LEAD: Alert, awake, uncooperative for detailed exam. The patient does have flexion contracture of upper and lower limbs. CONSIDERATIONS: 1. Anemia most likely of chronic disease. 2. Pneumonia due to Klebsiella. 3. Cerebrovascular accident. 4. Flexion contracture both upper and lower limbs. 5. Insulin dependent diabetes mellitus. PLAN: Continue current treatment. Close observation. LABORATORY DATA: Labs done today revealed WBC count 6.93, hemoglobin 9.6, hematocrit 30.7, platelet count 312. Electrolytes were fairly benign. ASSESSMENT/PLAN: I am going to discuss with the civil design specialist and Dr. Adame about discharge planning and then will make necessary recommendations. cc: Wilfredo Campo MD
--- NOTE | 2018-09-11 07:18 | INFECTIOUS DISEASE PROGRESS NO ---
DATE: 09/11/2018 PRESENT ILLNESS: The patient is being treated for a Staph bacteremia and Klebsiella pneumonia. MEDICATIONS: The patient has had 12 days of antibiotics with day 1 being the first day that the repeat blood cultures were sterile. PHYSICAL EXAMINATION: Vital Signs: Temperature is 98.5 degrees, pulse 95, respirations 17, blood pressure 108/57. General: This is a chronically ill-appearing elderly female. She appears to be in no acute distress. HEENT: No drainage is noted from the nose or ears. She did track with one eye. I was unable to get a good view of her mouth. There is no drainage from the nose or ears. Neck: The patient does not seem to be having any pain when her head is moved. Lungs: Clear to auscultation. Cardiovascular: Heart rate is regular. Abdomen: Soft and nontender. A G-tube is in place. The site is not draining or erythematous. Extremities: Patient has a PICC in the left arm. That site also is not draining or erythematous. Patient has diffuse contractures of her arms and legs. Neurologic: The patient is awake. She did track with one eye. She did not follow requests such as to close her eyes or move her arms or legs or open her mouth. As mentioned above, the patient is awake and did track a little bit with one eye. She did not did not move her extremities when requested to. There was no tremor. LAB AND X-RAY: Chest x-ray shows improvement of the left lower lobe opacity. CBC shows a white count of 6930, hemoglobin 9.6, and platelet count 312,000. Creatinine is 0.4, GFR is greater than 60. ASSESSMENT AND PLAN: Patient is being treated for a Staph bacteremia and a Klebsiella pneumonia. She has had 12 days of treatment for both of these entities and I plan on treating her for 2 more days to complete a 14 day treatment course. COMORBIDITIES: She is elderly. She has diabetes and has a previous stroke which has ended up with her having diffuse contractures and aphasia. cc: MD Wilfredo Welsh MD
[2018-09-11] MEDS: LACTULOSE GT SCH (08:45)
[2018-09-11] MEDS: CALMOSEPTINE OINTMENT TOP SCH ×2 (08:46→21:07)
[2018-09-11] MEDS: SYNTHROID GT SCH (08:46)
[2018-09-11] MEDS: ZOLOFT GT SCH (08:46)
--- NOTE | 2018-09-11 11:06 | GASTROENTEROLOGY PROGRESS NOTE ---
DATE: 09/11/2018 SUBJECTIVE: She is resting in bed. She is tolerating tube feeds well. Her nurse is at the bedside. She has been afebrile this morning. Last night, she had a temperature spike of 100.3. This is being worked up by primary team. PHYSICAL EXAMINATION: Vital signs: Temperature 98.6, pulse of 90, respiratory rate 18, blood pressure 107/53, saturating 98% on nasal cannula 3 L. Body weight of 132 pounds 9.6 ounces. BMI 25.9 kg/m2. General: Thinly built, lying in bed, in no acute distress. HEENT: Pale. No icterus. Nasal cannula in place. Neck: Supple. Abdomen: Emaciated. PEG tube in place. The external bumper site looks clean. There was no drainage or erythema noted at external bumper site. Abdomen is soft. Extremities: She has contractures from history of CVA. Neurologic: She has CVA, so she is nonverbal. LABORATORY DATA: Hemoglobin and hematocrit is 9.2 and 30.7, white count of 6.93, platelet count of 312. Sodium 141, potassium 4.3, chloride 105, bicarb 20, BUN of 13, creatinine 0.4, glucose of 103, calcium is 9, total bilirubin is 0.28, AST 40, ALT 23, alkaline phosphatase 62, total protein 5.8, albumin of 2.8. Sputum culture showing Klebsiella pneumoniae. Chest x-ray on 09/10/2018 showed improvement in the left lung base. IMPRESSION AND PLAN: 1. Pneumonia due to Klebsiella. She is on antibiotics. Dr. Adame is following. 2. Cerebrovascular accident. Aware. 3. Contractures in both upper and lower extremities. Aware. 4. Insulin-dependent diabetes mellitus. She is on sliding scale insulin. 5. Anemia. Continue to watch for now. Transfuse as needed. 6. Malnutrition. She is on tube feeds. She is tolerating it well. 7. Gastrointestinal prophylaxis with proton pump inhibitor. 8. Deep venous thrombosis prophylaxis with Lovenox. 9. I will start her on iron C BID. 10. Continue Multivitamin once daily. Above plan discussed with the patient and nurse at bedside. All questions answered. Please call us with any further questions. cc: MD Wilfredo Cadena MD MTDD
[2018-09-11] MEDS: ICAR-C GT SCH (21:07)
[2018-09-12] MEDS: DUONEB (A & A) INH SCH ×6 (03:08→23:21)
[2018-09-12] MEDS: SODIUM CHLORIDE 0.9% INJ SCH (06:17)
[2018-09-12] MEDS: MAXIPIME 1 GM in NS 50 ML IV SCH ×3 (06:17→21:26)
[2018-09-12] MEDS: PROTONIX IV SCH (06:17)
[2018-09-12] MEDS: LOVENOX SUBQ SCH (06:17)
[2018-09-12] MEDS: HUMULIN R SUBQ SCH ×4 (06:35→21:27)
--- NOTE | 2018-09-12 07:15 | PROGRESS NOTE ---
DATE: 09/12/2018 SUBJECTIVE: Ms Begum is doing better. She is tolerating feeding well. No nausea, vomiting. Blood pressure is better. At times, tachycardia. I am going to increase her feeding. Discussed with Dr. Adame. She will finish 14 days of IV antibiotics tomorrow and plan is to discharge her back to rehab tomorrow. OBJECTIVE: Vital signs noted. Neck is supple. No JVD. Lungs: Decreased air entry at both the bases. CVS: S1 and S2 heard. Abdomen: Soft. No distention. Bowel sounds present. AGRICULTURAL EDUCATION PROFESSOR: Alert, awake, uncooperative for detailed exam. 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 LABORATORY DATA: Done yesterday noted. PLAN: Plan is to increase her feeding to 30 mL. Continue rest of the treatment and close observation. PROBLEMS: 1. Aspiration pneumonia due to Klebsiella. 2. Severe flexion contracture. 3. Sepsis. DISPOSITION: Overall patient is doing better. We will discharge the patient to rehab tomorrow. cc: Wilfredo Campo MD
[2018-09-12] MEDS: LACTULOSE GT SCH (08:44)
[2018-09-12] MEDS: ELDERTONIC GT SCH (08:45)
[2018-09-12] MEDS: CALMOSEPTINE OINTMENT TOP SCH ×2 (08:45→21:26)
[2018-09-12] MEDS: ICAR-C GT SCH ×2 (08:46→21:27)
[2018-09-12] MEDS: SYNTHROID GT SCH (08:46)
[2018-09-12] MEDS: ZOLOFT GT SCH (08:46)
[2018-09-12] MEDS: VANCOMYCIN 1 GM/NS 1 GM/250 ML IVPB IV SCH (13:24)
--- NOTE | 2018-09-12 15:38 | INFECTIOUS DISEASE PROGRESS NO ---
DATE: 09/12/2018 PRESENT ILLNESS: Ms Begum has a Klebsiella pneumonia and a Staph bacteremia. MEDICATIONS: She is receiving IV vancomycin per pharmacy dosing and cefepime 1 g IV every 8 hours. PHYSICAL EXAMINATION: Vital Signs: Temperature is 98.8 degrees, pulse rate 117 respiratory rate 20, blood pressure 137/78, O2 saturation 99% on 2 L nasal cannula. General: This is a chronically ill-appearing, elderly female. She is lying in the bed in the position in no acute distress. HEENT: Atraumatic, normocephalic. Oral mucous membranes are pink and moist. Conjunctivae are pale. Respiratory: Lung sounds are clear in the upper lobes. Diminished in the bases. Cardiovascular: Heart rate and rhythm are regular and fast, sinus tach on the monitor. Abdomen: Soft, round, and nontender on palpation. Bowel sounds are active. There is a gastrostomy tube in place without any edema or erythema to the site. She also has a PICC line in her left upper arm without any edema or erythema. Neurologic: She is awake, alert, and will track me with her eyes. She does not follow commands and all extremities are contracted. LABORATORY AND X-RAY: None available today. ASSESSMENT AND PLAN: Ms. Begum is being treated for a Klebsiella pneumonia and a Staph bacteremia. Today is day 13 of her treatment with cefepime and vancomycin. The plan is for her to have one more day of antibiotics tomorrow, at which time the plan is for her to be to go back to rehab. These plans have been discussed with and recommended by Dr. Adame. COMORBIDITIES: Comorbidities from Ms. Begum include that she is elderly with diabetes mellitus and a previous stroke with contractures and aphasia. Dictated by JOURDAN Vincent for Ariel Adame MD This chart was documented by, JOURDAN Vincent and accurately reflects the services performed, treatment plan and medical decisions as attested by the providers signature Ariel Adame MD. cc: MD Wilfredo Welsh MD
--- NOTE | 2018-09-12 21:00 | PULMONOLOGY PROGRESS NOTE ---
DATE: 09/12/2018 SUBJECTIVE: The patient is awake. She does not follow commands. She has no increased work of breathing. OBJECTIVE: Vital Signs: The patient has been afebrile for the last 24 hours. Blood pressure 130/69, heart rate 112, respiratory rate 17, oxygen saturation 99% on 2 L per nasal cannula. HEENT: Pupils are equal and reactive. Oropharynx is clear but dry. Neck: Supple. Chest: Reveals positive bowel sounds. Extremities: Without change. LABORATORIES: No new CBC. No new chemistries. IMPRESSION: A 68-year-old with Klebsiella pneumonia, recurrent aspiration, protein calorie malnutrition, chronic hypoxemic respiratory failure, prior stroke with chronic debilitation. PLAN: 1. Continue tube feeds. 2. Continue oxygen for hypoxemic respiratory failure. 3. Anticipate transfer back to the [facility], as she is completing her course of antibiotics. cc: MD Wilfredo Lugo MD
[2018-09-13] MEDS: DUONEB (A & A) INH SCH ×4 (03:11→15:15)
[2018-09-13] MEDS: PROTONIX IV SCH (05:06)
[2018-09-13] MEDS: LOVENOX SUBQ SCH (05:06)
[2018-09-13] MEDS: MAXIPIME 1 GM in NS 50 ML IV SCH ×2 (05:06→18:29)
[2018-09-13] MEDS: HUMULIN R SUBQ SCH ×3 (06:48→18:29)
--- NOTE | 2018-09-13 07:21 | DISCHARGE SUMMARY ---
ADMISSION DATE: 08/28/2018 DISCHARGE DATE: Original discharge summary I dictated on 09/05/2018. Plan was to discharge the patient on 09/05/2018, but on that day patient suddenly got sick, hypoxemic and hypotensive. We are thinking patient aspirated. We transferred patient down to the ICU. The patient was given IV antibiotics, IV fluids. Dr. Hubbard and Dr. Aguillon was on case. We changed her antibiotics. Patient received total of 14 days of IV antibiotics. The patient is doing better. Her clinical condition improved. We had discussion with the family about end-of-life discussion, and they requested DNR- 1. Patient received 1 unit of packed RBC. Overall, patient is doing better and I am planning to discharge her back to care home today. DISCHARGE PHYSICAL EXAMINATION: Vital signs: Noted. Neck: Supple. No JVD. Lungs: Bibasilar crepitation. Heart: S1 and S2 heard. Abdomen: Soft, scaphoid. Bowel sounds present. SHAFT HEADMAN: Alert, awake, uncooperative for detailed exam. LABORATORY DATA: Done on September 11, hemoglobin 9.6, hematocrit 30.7, WBC count 6.93, platelet count was 312. Her electrolytes sodium 141, potassium 4.3, BUN was 13, creatinine 0.4. LFT results reviewed. The patient also had a GI consult done and they changed her PEG tube. Overall, patient received maximum benefit of hospitalization. I am planning to discharge her back to the care home. The plan is to gradually advance her feeding to 50 mL. Resume her routine care home orders. Fall precautions. Aspiration precautions. Continue oxygen. Patient is DNR-1 cc: Wilfredo Campo MD
[2018-09-13] MEDS: ELDERTONIC GT SCH (08:42)
[2018-09-13] MEDS: LACTULOSE GT SCH (08:42)
[2018-09-13] MEDS: SYNTHROID GT SCH (08:42)
[2018-09-13] MEDS: ZOLOFT GT SCH (08:42)
[2018-09-13] MEDS: DURAGESIC 25 MICROGM/HR PATCH TD SCH (08:42)
[2018-09-13] MEDS: CALMOSEPTINE OINTMENT TOP SCH (08:42)
[2018-09-13] MEDS: ICAR-C GT SCH (08:43)
[2018-09-13 20:23] VITALS: BP 107/61
== END 2018-09-13 20:23 | DRG 871 ==
LOC: SUPCPDRO → ED 21:23 → EDIPHOLD 08-28 02:42 → SUATTDRO 08-28 02:42 → ICU 08-29 15:11 → 3S 09-01 12:49 → ICU 09-05 12:42 → 3S 09-09 21:35
PROVIDERS: ADMIT Internal Medicine; ATTEND Internal Medicine
CPT/HCPCS: 36430; 36569; 51702; 71010; 71045; 71250; 74000; 74018; 80048; 80053; 80202; 81001; 82550; 82607; 82728; 82746; 82805; 82948; 83036; 83540; 83550; 83605; 83735; 83880; 84145; 84443; 84484; 85025; 85045; 85610; 85730; 86850; 86900; 86901; 86920; 87040; 87070; 87077; 87088; 87186; 87205; 93005; 94640; 94667; 94668; 94761; 94762; 94799; 96361; 96365; 96366; 96367; 96372; 96375; 96376; 99285; 99291; A9270; C9113; J0690; J0692; J1650; J1940; J2543; J3370; J3475; J3480; J7030; J7040; J7050; P9016; Q9966; Q9967; S0164; XXXXX

== ENCOUNTER 2019-01-04 23:36 | Inpatient (IN) ==
[2019-01-04] MEDS ORDERED: NEXIUM IV ONE (23:51)
[2019-01-04] MEDS ORDERED: SODIUM CHLORIDE 0.9% INJ ONE (23:51)
[2019-01-05 01:02] LABS: BASO# 0.01 X1000 (0.0-0.2); BASO% 0.1 % (0.0-0.8); EOS# 0.01 X1000 (0.0-0.7); EOS% 0.1 % (0.0-10.0); HEMOGLOBIN 14.2 g/dL (12.0-16.0); LYMPH# 0.71 X1000 (1.2-3.4); LYMPH% 5.3 % (20.5-51.1); MCH 32.8 PG (27-31); MCV 99.3 FL (81-99); MONO# 0.49 X1000 (0.11-0.59); MONO% 3.6 % (1.7-9.3); MPV 11.3 FL (7.4-10.4); NEUT# 12.21 X1000 (1.4-6.5); NEUT% 90.9 % (42.2-75.2); PLT 218 X1000 (130-400); RBC 4.33 XMIL (4.2-5.4); WBC 13.43 X1000 (4.8-10.8)
[2019-01-05] MEDS ORDERED: NS 500 ML IV ONE (01:11)
[2019-01-05 01:26] LABS: AGAP 16; ALBUMIN 4.1 g/dL (3.5-5.0); ALKALINE PHOSPHATASE 119 U/L (32-104); BUN 28 mg/dL (8-22); CALCIUM 10.1 mg/dL (8.8-10.2); CHLORIDE 93 mmol/L (98-107); COSMO 285; CREATININE 0.6 mg/dL (0.5-0.9); ESTIMATED GFR > 60; GLUCOSE 167 mg/dL (70-104); GOT 35 U/L (10-30); GPT 27 U/L (10-36); POTASSIUM 3.8 mmol/L (3.5-5.1); SODIUM 138 mmol/L (136-145); TCO2 29 mmol/L (25-35); TOTAL BILIRUBIN 0.27 mg/dL (0.20-1.00); TOTAL PROTEIN 8.2 g/dL (6.3-8.3)
--- NOTE | 2019-01-05 01:39 | PROVIDER DOCUMENTATION ---
This chart was entered by Corinne Tucker Scribe, acting as scribe for Minerva Ross MD. HPI-Abdominal Pain/GI Problem - General Chief Complaint: GI Bleed Stated Complaint: GI bleed Time Seen by Provider: 01/04/19 23:54 Source: patient Allergies/Adverse Reactions: Patient Allergies Allergy/AdvReac Type Severity Reaction Status Date / Time No Known Allergies Allergy Verified 11/13/16 15:03 Home Medications: Home Medication List Medication Instructions Recorded Confirmed Last Taken Type Aspirin 81 mg GT DAILY 11/28/15 01/05/19 08/27/18 08:00 History Lactulose 30 ml GT DAILY 11/28/15 01/05/19 08/27/18 08:00 History Levothyroxine [Synthroid] 50 microgm GT DAILY 11/28/15 01/05/19 08/27/18 06:00 History Sertraline HCl 50 mg GT DAILY 11/28/15 01/05/19 08/27/18 08:00 History Calcium Carbonate/Vitamin D3 1 each GT BID 11/13/16 01/05/19 08/27/18 08:00 History [Calcium 600 + Vit D Tablet] Cholecalciferol (Vit D3) [Vitamin 1,000 unit GT BID 11/13/16 01/05/19 08/27/18 History D3] Menthol/Zinc Oxide Ointment 1 applicatn TOP PRN PRN 11/13/16 01/05/19 11/13/16 07:00 History [Calmoseptine Ointment] Multivits W-Fe,Other Min [Centrum] 15 ml PEG DAILY 05/27/17 01/05/19 08/27/18 08:00 History Protein Hydrolysate,Milk [Liquid 30 ml PEG BID 05/27/17 01/05/19 08/27/18 08:00 History Protein Fortifier] Iron Carbonyl/Ascorbic Acid 1 ea GT BID #60 tab 06/02/17 01/05/19 08/27/18 08:00 Rx [Icar-C] Lactobacillus Rhamnosus GG 1 ea GT BID 08/28/18 01/05/19 08/27/18 08:00 History [[facility]] Menthol/Zinc Oxide Ointment 1 applicatn TOP BID 08/28/18 01/05/19 08/27/18 07:00 History [Calmoseptine Ointment] Nut.tx.gluc.intoler,Lac-Fr,Soy 1,500 ml GT BID 08/28/18 01/05/19 08/27/18 07:00 History [Glucerna 1.2 Vince] Acetaminophen Liquid [Tylenol 500 mg PEG Q4H PRN PRN udc 09/05/18 01/05/19 Unknown Rx Liquid] Albuterol 2.5MG/Ipratrop 0.5MG 3 ml INH RTQ4H neb 09/05/18 01/05/19 Unknown Rx [Duoneb (A & A)] Enoxaparin [Lovenox] 40 mg SUBQ Q24H #3 syringe 09/05/18 01/05/19 Unknown Rx Fentanyl 25 Microgm/Hr Patch 1 ea TD Q72H patch 09/05/18 01/05/19 Unknown Rx [Duragesic 25 Microgm/Hr Patch] - History of Present Illness-ABD Nature of Presenting Problems: Pt is 68/F presenting to ED from skilled nursing, it is reported that patient has had coffee ground like emesis today. Pt is non-verbal and has feeding tube, does not take any food in PO. Pt is not on any anti-coagulants Onset/Duration: reports: just prior to arrival Timing: reports: still present Activities at Onset: reports: none Exposure to sick contacts?: No Modifying Factors: improves with: nothing Associated Symptoms: reports: vomiting. denies: cough, diaphoresis, diarrhea # of Vomiting Episodes: 1 Emesis Description: reports: coffee grounds Review of Systems - Adult - REVIEW OF SYSTEMS - ADULT ROS:: ROS per family Constitutional: denies: fever Eyes: reports: no symptoms reported Ears, Nose, Mouth & Throat: reports: no symptoms reported Cardiovascular: reports: no symptoms reported Respiratory: reports: no symptoms reported Gastrointestinal: reports: hematemesis Genitourinary: reports: no symptoms reported Musculoskeletal: reports: no symptoms reported Integumentary: reports: no symptoms reported Neurological: reports: no symptoms reported Psychiatric: reports: no symptoms reported Endocrine: reports: no symptoms reported Hematologic/Lymphatic: reports: no symptoms reported Allergic/Immunologic: reports: no symptoms reported All Other Systems: Reviewed and Negative Past History - Adult - PAST MEDICAL HISTORY-ADULT Review of Records: reports: Old Records Reviewed, Nursing Assessment Review, Medications Reviewed, Social history reviewed & non-contributory. Major Childhood Illnesses: reports: denies history Cardiovascular: reports: hyperlipidemia Respiratory: reports: denies history Gastrointestinal: reports: GERD Obstetrical/Gynecological: reports: denies history Genitourinary: reports: denies history Musculoskeletal: reports: denies history Neurological: reports: CVA, stroke deficits (cannot communicate/contactures) Endocrine/Immune: reports: Diabetes, thyroid disorder Other Conditions: reports: denies history - PRIOR SURGERIES/PROCEDURES Surgical/Procedure History: reports: hysterectomy, other (throat surgery) - IMMUNIZATION STATUS Childhood Immunizations: See Nurse Assessment Flu Vaccine: See Nurse Assessment - FAMILY HISTORY Family History: reviewed, not pertinent - SOCIAL HISTORY Smoking: quit greater than 1 year Substance Use: none/never Alcohol Use Frequency: never Living Situation: care facility Physical Exam-General - PHYSICAL EXAM-ADULT Initial Vital Signs Reviewed: Yes - CONSTITUTIONAL General Appearance: appears well, alert, no apparent distress, other (pt is non- verbal, has contractures) - EYES Eyes: PERRL/EOMI, pink conjunctivae - HEAD, EARS, NOSE, MOUTH & THROAT HENMT: normocephalic/atraumatic, moist mucous membranes, normal ENT inspection, TMs normal, pharynx normal - NECK Neck: non-tender, full range of motion, supple, normal inspection - RESPIRATORY Respiratory: crackles (crackles in the base of lungs) - CARDIOVASCULAR Cardiovascular: regular rate, rhythm - GASTROINTESTINAL (ABDOMEN) Abdominal Exam: normal bowel sounds, non tender, soft - LYMPHATIC Lymphatic: no adenopathy - MUSCULOSKELETAL Back Exam: normal inspection, no CVA tenderness, no vertebral tenderness Extremity: non-tender - SKIN Integumentary: normal color, warm/dry - NEUROLOGIC Neurologic: grossly normal - PSYCHIATRIC Psych/Mental Status: normal mood/affect, normal thought content, normal thought process, oriented x 3 Progress - PLAN OF CARE/RESULTS Progress/Plan/Lab Results: Vital Signs - 8 hr 01/04/19 23:39 Temperature 98.7 F Pulse Rate 107 H Respiratory Rate 18 Blood Pressure 107/81 O2 Sat by Pulse Oximetry 93 L Orders Category Date Time Status cxr [CHEST-PORTABLE] [RAD] Stat Exams 01/04/19 23:50 Ordered CBC WITH ELECTRONIC DIFF [HEME] Stat Lab 01/04/19 23:50 Uncollected COMPREHENSIVE METABOLIC PANEL [CHEM] Stat Lab 01/04/19 23:50 Uncollected Esomeprazole [Nexium] Med 01/04/19 23:51 Discontinued 40 mg IV NOW ONE Sodium Chloride 0.9% Med 01/04/19 23:51 Discontinued 5 ml INJ NOW ONE Result Diagrams: 01/04/19 00:20 01/04/19 00:20 - CONSULTS/PCP/HOSPITALIST Notification #1 *Consult/PCP/Hospitalist*: Dr. Beck Time Discussed: 01:38 Consult Disposition: Admit (GI bleed) Departure - Departure Date of Disposition Decision: 01/05/19 Time of Disposition Decision: 01:39 DIAGNOSIS: GIB (gastrointestinal bleeding) Disposition: ADMITTED INPATIENT 09 Certified Medical Emergency: Emergent Condition: Stable Referrals and Follow-Ups: Wilfredo Campo MD [Primary Care Provider] - - Critical Care Note This patient required my direct & personal management of CC.: No Attestation - Physician/ PAUL Attestation Patient care was provided by Advanced Practice Provider:: No The physician spent face to face time with patient:: Yes Advanced Practice Provider documentation review:: Supervising physician onsite and consulted in the evaluation and care of this patient. The physician did have a face to face encounter with the patient. This chart was documented by the indicated scribe, (Corinne Tucker, Rachel) and accurately reflects the services I performed and decisions made by me, Minerva Ross MD, as attested by the provider's signature.
[2019-01-05] MEDS ORDERED: NEXIUM IV SCH (02:30)
--- NOTE | 2019-01-05 02:44 | HISTORY AND PHYSICAL ---
PRIMARY CARE PHYSICIAN: Unknown. CHIEF COMPLAINT: Coffee-grounds emesis. HISTORY OF PRESENTING ILLNESS: A 68-year-old female who is basically nonverbal and contracted in the bed with a history of CVA, diabetes mellitus type 2, and hyperlipidemia, who was sent from [facility] due to patient vomiting coffee-grounds emesis. The patient was evaluated in the emergency department, not much history could be obtained, and remainder of the history is retrieved from previous medical records and ER charting. PAST MEDICAL HISTORY: Includes CVA, diabetes mellitus type 2, hypothyroidism, hyperlipidemia. PAST SURGICAL HISTORY: Hysterectomy, throat cancer. ALLERGIES: No known drug allergies. CURRENT MEDICATIONS: Unknown and nursing staff will reconcile. SOCIAL HISTORY: No history of smoking, alcohol, or illicit drug use. FAMILY HISTORY: No history of coronary disease. REVIEW OF SYSTEM: Unable to obtain due to patient being nonverbal. PHYSICAL EXAMINATION: GENERAL: The patient is a frail, elderly woman, is laying contracted in the bed. VITAL SIGNS: Temperature 98.7 degrees, pulse 107, respiration 18, blood pressure 107/81. HEENT: Atraumatic, normocephalic. NECK: No masses. CHEST: Clear to auscultation. CARDIOVASCULAR: Regular rate and rhythm. ABDOMEN: Soft. Positive bowel sounds. EXTREMITIES: No edema. NEUROLOGIC: The patient can be arousable. GENITOURINARY: No bladder distention. SKIN: Warm. LABORATORIES AND STUDIES: WBC 13.43, hemoglobin 14.2, hematocrit 42.0, platelets 218,000. Sodium 138, potassium 3.8, chloride 93, CO2 is 29, BUN is 28, creatinine 0.6. Glucose 167. ASSESSMENT: A 68-year-old elderly female who is basically contracted and nonverbal, was sent from [facility] due to patient vomiting coffee-grounds emesis. She was evaluated the emergency department. Due to her presenting symptoms, she will require admission for further management. 1. Suspected upper gastrointestinal bleed. 2. Cardiovascular. 3. Diabetes mellitus type 2. 4. Hyperlipidemia. PLAN: 1. We will admit patient to medical floor with telemetry. 2. We will keep patient NPO. 3. We will start patient on IV Nexium. 4. Continue with gentle hydration. 5. Consult Gastroenterology. 6. We will hold all her home medications. 7. Monitor blood glucose. 8. Put patient on DVT prophylaxis with SCDs. 9. We will continue to follow and reassess, make further recommendations based on patient clinical course. cc: MD Wilfredo El MD
[2019-01-05] MEDS: NS 1,000 ML IV SCH ×2 (03:46→18:04)
[2019-01-05] MEDS: DURAGESIC 25 MICROGM/HR PATCH TD SCH (03:47)
[2019-01-05] MEDS: SYNTHROID GT SCH (06:20)
--- NOTE | 2019-01-05 07:37 | Diag Imaging Result Doc PS360 ---
EXAM: CHEST-PORTABLE INDICATION: pna TECHNIQUE: One view COMPARISON: 09/10/2018 FINDINGS: There is stable elevation of the right hemidiaphragm. There has been interval removal of the left PICC line. The lungs are grossly clear. No well-defined airspace consolidation is appreciated. There is no discrete pleural fluid collection or pneumothorax. The cardiomediastinal silhouette and central vasculature are grossly unremarkable. IMPRESSION: No evidence of acute pathology by plain radiograph. Electronically signed by Ambrosio Workman 01/05/2019 7:35 AM
[2019-01-05 07:47] LABS: URINE SOURCE CLEAN CATCH
--- NOTE | 2019-01-05 07:47 | PROGRESS NOTE ---
DATE: 01/05/2019 SUBJECTIVE: Ms. Begum is a 68-year-old patient resident of [facility] admitted with coffee-ground emesis. The patient had a CVA. The patient has expressive aphasia, dysphagia, and flexion contracture of upper and lower limbs. History part is limited. Patient had similar episode in the past. No high-grade fever or chills. No nausea or vomiting. No diarrhea. OBJECTIVE: Her vital signs as noted. Admission history and physical reviewed.Lungs: Bibasilar crepitation. Heart: 2/6 systolic murmur at the apex. Abdomen: Soft. No distention. Bowel sounds present. Extremities: No cyanosis or clubbing. Patient does have flexion contracture both upper and lower limbs. COTTAGE MASTER: Alert, awake, and cooperative for detailed exam. PLAN: We will continue IV hydration. Close observation. I am going to repeat blood work today. GI consultation requested. After reviewing labs, we will make necessary recommendations. The patient is on IV proton pump inhibitor which we will continue. cc: Wilfredo Campo MD
[2019-01-05 07:52] LABS: BILIRUBIN URINE NEGATIVE (NEGATIVE); BLOOD URINE SMALL (NEGATIVE); COLOR YELLOW; GLUCOSE URINE NEGATIVE (NEGATIVE); KETONE URINE NEGATIVE (NEGATIVE); LEUKOCYTES URINE LARGE (NEGATIVE); NITRITE URINE NEGATIVE (NEGATIVE); PROTEIN URINE 50 mg/dL (NEGATIVE); SP GRAVITY URINE 1.019; TURBIDITY URINE HAZY (CLEAR); UR EPITHELIAL CELLS <10 /HPF (<10); URINE BACTERIA NEGATIVE /HPF; URINE RBC 20-40 /HPF (<10); URINE WBC TNTC /HPF (<10); UROBILINOGEN URINE NORMAL (NORMAL)
[2019-01-05 08:48] LABS: BASO# 0.02 X1000 (0.0-0.2); BASO% 0.2 % (0.0-0.8); EOS# 0.03 X1000 (0.0-0.7); EOS% 0.3 % (0.0-10.0); HEMATOCRIT 36.7 % (37.0-47.0); HEMOGLOBIN 12.3 g/dL (12.0-16.0); IMM GRAN# 0.02 X1000 (0.0-0.04); IMM GRAN% 0.2 % (0.0-0.5); LYMPH# 1.77 X1000 (1.2-3.4); MCH 33.5 PG (27-31); MCHC 33.5 g/dL (33-37); MONO# 0.76 X1000 (0.11-0.59); MONO% 6.9 % (1.7-9.3); MPV 10.9 FL (7.4-10.4); NEUT# 8.46 X1000 (1.4-6.5); NEUT% 76.4 % (42.2-75.2); PLT 176 X1000 (130-400); RBC 3.67 XMIL (4.2-5.4); RDW 14.2 % (11.5-14.5); WBC 11.06 X1000 (4.8-10.8)
[2019-01-05] MEDS: NEXIUM IV SCH ×2 (09:16→23:30)
[2019-01-05] MEDS: SODIUM CHLORIDE 0.9% INJ SCH ×2 (09:16→23:30)
[2019-01-05 09:29] LABS: AGAP 14; ALB/GLOB RATIO 0.9; ALBUMIN 3.1 g/dL (3.5-5.0); ALKALINE PHOSPHATASE 81 U/L (32-104); BUN 22 mg/dL (8-22); CALCIUM 9.3 mg/dL (8.8-10.2); CHLORIDE 98 mmol/L (98-107); COSMO 272; CREATININE 0.6 mg/dL (0.5-0.9); ESTIMATED GFR > 60; GLUCOSE 106 mg/dL (70-104); GOT 38 U/L (10-30); GPT 18 U/L (10-36); POTASSIUM 4.5 mmol/L (3.5-5.1); SODIUM 134 mmol/L (136-145); TCO2 22 mmol/L (25-35); TOTAL BILIRUBIN 0.34 mg/dL (0.20-1.00); TOTAL PROTEIN 6.6 g/dL (6.3-8.3)
--- NOTE | 2019-01-05 19:58 | GASTROENTEROLOGY CONSULTATION ---
DATE: 01/05/2019 REASON FOR CONSULTATION: Witnessed coffee-grounds emesis. HISTORY OF PRESENT ILLNESS: Ms. Meenu Begum is an unfortunate 68-year-old woman with past medical history of hypertension, hyperlipidemia, prior scope, who is nonresponsive with probable quadriplegia, presented with coffee-ground emesis from the [facility]. Per records, the patient had 1 episode of coffee-grounds emesis reported in the [facility]. She is not on any blood thinners. The patient cannot provide any history. No one at bedside to provide any collateral. REVIEW OF SYSTEMS: Unable to obtain. 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 PAST SURGICAL HISTORY: Hysterectomy, throat surgery, PEG tube placement. SOCIAL HISTORY: She is a permanent resident of [facility]. She has lived there for 12 years. No alcohol, smoking, or drug use. There is a history of apparently a cerebral palsy. FAMILY HISTORY: Unable to obtain. ALLERGIES: No known drug allergies. MEDICATIONS: Reviewed in chart. PHYSICAL EXAMINATION: Vital Signs: Temperature 98.9 degrees, heart rate 94, respiratory rate of 16, blood pressure of 97/48, O2 saturation 100% on room air. General: The patient is chronically ill-appearing, cachectic, no acute distress, nonresponsive. HEENT: She has some strabismus and some mild nystagmus. She does not track or follow commands with extraocular movement. No icterus. Neck: Supple. No JVD or lymphadenopathy . Cardiac: Regular. No murmurs. Lungs: Normal work of breathing. No wheezing. Abdomen: A 24-Stateless Arias catheter is within the gastrostomy tube site that is clean, dry, and intact. She is nondistended. Bowel sounds are present. PEG was flushed at bedside with approximately 200 mL of water and about 30-40 mL of clear liquid was aspirated. No evidence of blood. Extremities: She has contractures and rigidity in all her extremities with diffuse atrophy. She has some known pressure ulcers in her heels. Neurologic: She does not follow commands, contracted, did not move her extremities spontaneously from what I can see. No withdrawal to pain in the extremities. LABS: White count is 11.0 from 13.4, hemoglobin is 12.3 from 14.2, platelets are 176,000 from 218,000. Sodium 134, potassium 4.5, chloride 98, bicarb 22, BUN of 22, creatinine 0.6, glucose of 106. LFTs notable for AST of 38, albumin 3.1. UA shows large leukocytes. Urine RBCs of 20 to 40. Mild proteinuria. Micro. Urine culture is pending. Fecal Hemoccult is negative. Chest x- ray shows no evidence of acute pathology. ASSESSMENT AND PLAN: Ms Meenu Begum is a 68-year-old unfortunate woman with a history of stroke who has probable quadriplegia with contractures of extremities,. She is aphasic and not responsive to commands, who presents from [facility] with reported coffee-grounds emesis. Her hemoglobin today is 12.3 from around 14 upon admission. This is likely dilutional as her white count and platelets also dropped with fluid resuscitation. Flushing of her PEG did not reveal any evidence of acute gastrointestinal bleeding and her fecal Hemoccult is negative. I do not believe she is actually having an acute gastrointestinal bleed at this time. From gastrointestinal perspective we can resume her normal tube feeds. She can stay on a PPI for GI prophylaxis once daily and resume her GI medications as per primary team. This plan was discussed with the nurse and primary team. Will sign off. Please call with any questions or concerns. cc: Wilfredo Campo MD
[2019-01-06] MEDS ORDERED: CALMOSEPTINE OINTMENT TOP PRN (03:44)
[2019-01-06 06:57] LABS: BASO# 0.02 X1000 (0.0-0.2); BASO% 0.3 % (0.0-0.8); EOS# 0.11 X1000 (0.0-0.7); EOS% 1.4 % (0.0-10.0); HEMATOCRIT 34.8 % (37.0-47.0); HEMOGLOBIN 11.3 g/dL (12.0-16.0); LYMPH# 1.08 X1000 (1.2-3.4); LYMPH% 13.6 % (20.5-51.1); MCH 32.7 PG (27-31); MCHC 32.5 g/dL (33-37); MCV 100.6 FL (81-99); MONO# 0.42 X1000 (0.11-0.59); MONO% 5.3 % (1.7-9.3); MPV 10.5 FL (7.4-10.4); NEUT# 6.34 X1000 (1.4-6.5); NEUT% 79.4 % (42.2-75.2); PLT 176 X1000 (130-400); RBC 3.46 XMIL (4.2-5.4); RDW 13.7 % (11.5-14.5); WBC 7.97 X1000 (4.8-10.8)
[2019-01-06] MEDS: SYNTHROID GT SCH (07:00)
[2019-01-06 07:30] LABS: AGAP 8; CHLORIDE 106 mmol/L (98-107); POTASSIUM 3.4 mmol/L (3.5-5.1); SODIUM 140 mmol/L (136-145); TCO2 26 mmol/L (25-35)
[2019-01-06 07:31] LABS: ALB/GLOB RATIO 1.1; ALBUMIN 3.2 g/dL (3.5-5.0); ALKALINE PHOSPHATASE 76 U/L (32-104); BUN 15 mg/dL (8-22); CALCIUM 8.9 mg/dL (8.8-10.2); COSMO 280; CREATININE 0.4 mg/dL (0.5-0.9); ESTIMATED GFR > 60; GLUCOSE 96 mg/dL (70-104); GOT 22 U/L (10-30); GPT 16 U/L (10-36); MAGNESIUM 1.8 mg/dL (1.5-2.7); TOTAL BILIRUBIN 0.34 mg/dL (0.20-1.00); TOTAL PROTEIN 6.1 g/dL (6.3-8.3)
[2019-01-06] MEDS: NEXIUM IV SCH ×2 (10:42→22:25)
[2019-01-06] MEDS ORDERED: TYLENOL LIQUID PEG PRN (10:43)
[2019-01-06] MEDS ORDERED: NUT TX GLUC INTOLER LAC FR SOY GT SCH (10:45)
[2019-01-06] MEDS ORDERED: [UNRECOGNIZED DRUG - OTHER] GT SCH (10:45)
[2019-01-06] MEDS: HUMALOG SUBQ SCH ×3 (11:00→21:07)
[2019-01-06] MEDS: DUONEB (A & A) INH SCH ×4 (11:45→23:25)
--- NOTE | 2019-01-06 16:41 | PROGRESS NOTE ---
DATE: 01/06/2019 I was called earlier this morning about potential that Mrs. Begum had a seizure. Apparently the nurse overnight had been called about an abnormal telemetry and I have reviewed this telemetry strip from 1:23 in the morning on 01/06 and I see no major abnormality. There is no wide QRS. There was a concern by the nurse that she might been having a seizure as her eyes were rolling back in her head. There was no jerking movements. Patient has diapers on and the nurse said she did urinate at that time but did not defecate. There was no jerking movements and no definite generalized component to the activity. No prior history of seizures. The patient is chronically debilitated, has contractures of her arms and legs and is a residential resident and is nonverbal. OBJECTIVE: Afebrile. Pulse 87, respirations 16, blood pressure 134/74, O2 saturation on 2 L 100%.CV: RRR. Lungs: Clear. Abdomen: Nontender. PEG tube in place. Extremities: No edema. Permanent contractures to her arms and legs. The patient is nonverbal. She does move her left side of her mouth on occasion but this does not appear to be rhythmic. She has chronic pupillary dilation on the left and there is dysconjugate gaze. I see no rolling back of her eyes in her head. She does look about. She is nonverbal. No signs of rhythmic movements of her arms, legs, neck. No signs of seizures I can ascertain. LABORATORY DATA: Shows urine culture is negative. No pathogenic growth. Hemoccult testing was negative and Dr. White has evaluated the patient yesterday with good report. He did not feel like she needed GI endoscopies. White count today is 7.9, which is normal, hemoglobin 11.3, platelets 176,000. Sodium 140, potassium 3.4, chloride 106, CO2 26, BUN 15, creatinine 0.4, glucose 96, calcium 8.9, magnesium 1.8, total bilirubin 0.34, AST 22, ALT 16, alkaline phosphatase 76, total protein 6.1, albumin 3.2. ASSESSMENT: 1. Patient sent for possible gastrointestinal bleed with coffee-grounds emesis x1, but Hemoccult negative here in the hospital. 2. Possible seizure activity but doubtful. 3. History of stroke with permanent contractures to her arms and legs and nonverbal state longstanding at the residential. 4. Type 2 diabetes mellitus. 5. Hyperlipidemia. 6. Hypothyroidism. PLAN: Will resume her Synthroid by her G-tube, will resume tube feeds. She is on fentanyl chronically that will be continued. She is on IV PPI and will continue that at this point. We will place her back on her tube feeds once we find out the formula that they use at the residential, nurse is going to call me back with that later in the day and place her on neurological checks q.4 hours and seizure precautions. cc: MD Wilfredo Danielle MD
[2019-01-06] MEDS: SODIUM CHLORIDE 0.9% INJ SCH (22:24)
[2019-01-06] MEDS: CALMOSEPTINE OINTMENT TOP SCH (22:26)
[2019-01-07] MEDS: DUONEB (A & A) INH SCH ×4 (03:46→15:41)
[2019-01-07 06:23] LABS: BASO# 0.02 X1000 (0.0-0.2); BASO% 0.3 % (0.0-0.8); EOS# 0.07 X1000 (0.0-0.7); EOS% 0.9 % (0.0-10.0); HEMATOCRIT 35.4 % (37.0-47.0); HEMOGLOBIN 11.5 g/dL (12.0-16.0); LYMPH# 1.29 X1000 (1.2-3.4); LYMPH% 16.9 % (20.5-51.1); MCH 32.4 PG (27-31); MCHC 32.5 g/dL (33-37); MCV 99.7 FL (81-99); MONO# 0.57 X1000 (0.11-0.59); MONO% 7.5 % (1.7-9.3); MPV 10.9 FL (7.4-10.4); NEUT# 5.69 X1000 (1.4-6.5); NEUT% 74.4 % (42.2-75.2); PLT 180 X1000 (130-400); RBC 3.55 XMIL (4.2-5.4); RDW 13.9 % (11.5-14.5); WBC 7.64 X1000 (4.8-10.8)
[2019-01-07 06:56] LABS: AGAP 11; BUN 21 mg/dL (8-22); CALCIUM 8.9 mg/dL (8.8-10.2); CHLORIDE 104 mmol/L (98-107); COSMO 282; CREATININE 0.5 mg/dL (0.5-0.9); ESTIMATED GFR > 60; GLUCOSE 100 mg/dL (70-104); POTASSIUM 3.7 mmol/L (3.5-5.1); PREALBUMIN 15.9 mg/dL (20-40); SODIUM 140 mmol/L (136-145); TCO2 25 mmol/L (25-35)
[2019-01-07] MEDS: SYNTHROID GT SCH (07:00)
[2019-01-07] MEDS: HUMALOG SUBQ SCH ×4 (07:23→22:50)
[2019-01-07] MEDS: CALMOSEPTINE OINTMENT TOP SCH ×2 (11:06→22:50)
[2019-01-07] MEDS: ZOLOFT GT SCH (11:06)
[2019-01-07] MEDS: LACTULOSE GT SCH (11:06)
[2019-01-07] MEDS: SODIUM CHLORIDE 0.9% INJ SCH ×2 (11:06→22:49)
[2019-01-07] MEDS: NEXIUM IV SCH ×2 (11:06→22:49)
--- NOTE | 2019-01-07 12:04 | PROGRESS NOTE ---
DATE: 01/07/2019 SUBJECTIVE: Patient remains stable. No obvious signs of seizure activity. She is at her baseline. OBJECTIVE: Afebrile. Vital signs stable. CV: RRR. Lungs: Clear. Abdomen: Soft, nontender, nondistended. PEG tube in place. Extremities: Prominent contractions to both arms and legs. She has chronic pupillary dilation on the left with dysconjugate gaze. No signs of seizure activity. Occasional mouth movements which may be more of a dyskinesia. No rhythmic movements of her arms. She does try to move her left arm some. Laboratory Data: Shows sodium 140, potassium 3.7, chloride 104, CO2 of 25, BUN 21, creatinine 0.5, glucose 100 and blood sugars are running at 86 to 136. Prealbumin is low at 15.9. White count 7.6, hemoglobin 11.5 and stable, platelets 180,000. Urine culture negative from admission. ASSESSMENT: 1. Anemia, thought dilutional with no obvious signs of gastrointestinal bleed. Hemoccult negative with no emesis. Resuming percutaneous endoscopic gastrostomy feeds gradually. 2. No definite seizure activity identified. No dysrhythmias noted on the record of telemetry. 3. Remote history of stroke with permanent contractions to her arms and legs, and nonverbal state, stable currently. 4. Type 2 diabetes mellitus. 5. Hyperlipidemia. 6. Hypothyroidism. PLAN: Continue to escalate her PEG feeds gradually with escalation again tomorrow if she does well without residuals and we will continue neurological checks to make sure no seizure activity. Dr. Campo will reassess and consider EEG if she shows any signs of seizure-like activity, but I do not think she has had that at this point. We will continue to monitor and get her back to rehab when appropriate. cc: MD Wilfredo Danielle MD
[2019-01-08] MEDS: DURAGESIC 25 MICROGM/HR PATCH TD SCH (02:20)
[2019-01-08] MEDS: DUONEB (A & A) INH SCH ×7 (04:04→23:21)
[2019-01-08] MEDS: HUMALOG SUBQ SCH (06:37)
[2019-01-08] MEDS: SYNTHROID GT SCH (06:57)
--- NOTE | 2019-01-08 07:08 | PROGRESS NOTE ---
DATE: 01/08/2019 SUBJECTIVE: Ms Begum and is doing better. No high-grade fever or chills. No nausea or vomiting. No GI bleed, hematemesis or melena. I am going to check about her feeding. Her urine analysis did reveal too numerous to count WBCs, but urine culture was negative. There was question about seizure over the weekend but I doubt. Patient is not communicating. Progress over the weekend reviewed. OBJECTIVE: Vital Signs: Her vital signs noted. Neck: Neck is supple. No JVD. Lungs: Bibasilar crepitations. Heart: S1 and S2 heard. Abdomen: Soft, scaphoid. Bowel sounds present. PEG tube is in place. DICTATING MACHINE TRANSCRIBER: Alert, awake. Uncooperative for detailed exam. Not communicating. LABORATORY DATA: Laboratory data done over the weekend noted. PLAN: Plan is to resume her PEG tube feeding. Watch patient today. If clinical condition permits, and if she continues to tolerate feeding well, I am planning to discharge her tomorrow. Consideration for possible GI bleed, constipation, hypothyroidism, metabolic syndrome. cc: Wilfredo Campo MD
[2019-01-08] MEDS: ZOLOFT GT SCH (12:53)
[2019-01-08] MEDS: LACTULOSE GT SCH (12:53)
[2019-01-08] MEDS: CALMOSEPTINE OINTMENT TOP SCH ×2 (12:54→23:12)
[2019-01-08] MEDS: NEXIUM IV SCH ×2 (12:54→23:11)
[2019-01-08] MEDS: SODIUM CHLORIDE 0.9% INJ SCH ×2 (12:55→23:11)
[2019-01-09] MEDS: DUONEB (A & A) INH SCH ×3 (03:25→11:18)
[2019-01-09] MEDS: SYNTHROID GT SCH (06:47)
--- NOTE | 2019-01-09 08:22 | DISCHARGE SUMMARY ---
ADMISSION DATE: 01/05/2019 DISCHARGE DATE: FINAL DISCHARGE DIAGNOSES: 1. Gastritis. 2. History of upper gastrointestinal bleed. 3. History of cerebrovascular accident. 4. Expressive aphasia. 5. 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 6. Metabolic syndrome. 7. Hypothyroidism. 8. History of hyperlipidemia. HISTORY OF PRESENT ILLNESS: Ms. Begum is a 68-year-old, patient, a resident of [facility], admitted because of coffee-grounds emesis. The patient is not able to give any history. The rest of the information is from admission history and physical. HOSPITAL COURSE: The patient was admitted to telemetry bed. Hydrated. GI consult obtained with Dr. White who evaluated the patient. We observed patient closely. He did lavage her stomach from the PEG tube. There was no apparent bleeding or coffee-grounds aspirate. We treated the patient with IV proton pump inhibitor. We resumed her feeding. Patient tolerated feeding well. Her clinical condition stabilized. At times, the patient was getting nervous, anxious, and tachycardic. The patient received maximum benefit of hospitalization. She is tolerating her feeding well. I am planning to [facility] her back to the [facility] today. PHYSICAL EXAMINATION: Vital Signs: Noted. Neck: Supple. No JVD. Lungs: Bibasilar crepitations. Heart: S1 and S2. Tachycardia. Abdomen: Soft, scaphoid. PEG tube is in place. CHILD CARE LEAD TEACHER: The patient is alert, awake. Uncooperative for detailed exam. She does have expressive aphasia. Flexion contractures of upper and lower limbs. LABORATORY DATA: Done last on January 07, hemoglobin 11.5, hematocrit 35.4, platelet count 180,000, WBC count 7.64. Electrolytes fairly benign. Prealbumin 15.9. Urinalysis did reveal too numerous to count WBCs. Urine culture was negative. Stool for occult blood was negative. Chest x-ray, no evidence of acute pathology. CONDITION: Overall discharge condition satisfactory. DISCHARGE INSTRUCTIONS: As per family's request and [facility] order, I made her Do Not Resuscitate. We will continue current treatment. We will give her a proton pump inhibitor via PEG tube. Resume her previous orders. Repeat blood work. Continue her pain medicine. cc: Wilfredo Campo MD
[2019-01-09 08:37] VITALS: BP 118/73
[2019-01-09] MEDS: SODIUM CHLORIDE 0.9% INJ SCH (09:05)
[2019-01-09] MEDS: LACTULOSE GT SCH (09:06)
[2019-01-09] MEDS: NEXIUM IV SCH (09:06)
[2019-01-09] MEDS: ZOLOFT GT SCH (09:06)
[2019-01-09] MEDS: CALMOSEPTINE OINTMENT TOP SCH (09:06)
== END 2019-01-09 12:28 | DRG 392 ==
LOC: SUPCPDRO → ED 23:36 → 4N 01-05 01:58 → SUATTDRO 01-05 01:58
PROVIDERS: ADMIT Internal Medicine; ATTEND Internal Medicine
CPT/HCPCS: 71010; 71045; 80048; 80053; 81001; 82270; 82948; 83735; 84134; 85025; 87088; 94640; 94761; 96361; 96374; 99285; A9270; J1815; J7030; J7040; XXXXX

== ENCOUNTER 2019-03-14 04:11 | Inpatient (IN) ==
[2019-03-14] MEDS ORDERED: SODIUM CHLORIDE 0.9% INJ ONE (04:21)
[2019-03-14] MEDS ORDERED: PROTONIX IV ONE (04:21)
--- NOTE | 2019-03-14 04:22 | PROVIDER DOCUMENTATION ---
HPI-Abdominal Pain/GI Problem - General Chief Complaint: GI Bleed Stated Complaint: GI BLEED Time Seen by Provider: 03/14/19 04:19 Source: EMS Allergies/Adverse Reactions: Patient Allergies Allergy/AdvReac Type Severity Reaction Status Date / Time No Known Allergies Allergy Verified 11/13/16 15:03 Home Medications: Home Medication List Medication Instructions Recorded Confirmed Last Taken Type Aspirin 81 mg GT DAILY 11/28/15 03/14/19 01/04/19 08:00 History Lactulose 30 ml GT DAILY 11/28/15 03/14/19 01/04/19 08:00 History Levothyroxine [Synthroid] 50 microgm GT DAILY 11/28/15 03/14/19 01/04/19 06:00 History Sertraline HCl 50 mg GT DAILY 11/28/15 03/14/19 01/04/19 08:00 History Calcium Carbonate/Vitamin D3 1 each GT BID 11/13/16 03/14/19 01/04/19 20:00 History [Calcium 600 + Vit D Tablet] Multivits W-Fe,Other Min [Centrum] 15 ml PEG DAILY 05/27/17 03/14/19 01/04/19 08:00 History Iron Carbonyl/Ascorbic Acid 1 ea GT BID #60 tab 06/02/17 03/14/19 01/04/19 20:00 Rx [Icar-C] Albuterol 2.5MG/Ipratrop 0.5MG 3 ml INH RTQ4H neb 09/05/18 03/14/19 01/04/19 20:00 Rx [Duoneb (A & A)] Zinc Sulfate 220 mg PEG BID 01/06/19 03/14/19 01/04/19 20:00 History Acetaminophen [Tylenol] 500 mg GT Q4HR PRN 03/14/19 03/14/19 Unknown History Arginine/Glutamine/Calcium Hmb 1 packet GT DAILY 03/14/19 03/14/19 Unknown History [Gildardo Packet] Balsam Polina/[place] Oil [Venelex 1 dose TOP DAILY 03/14/19 03/14/19 Unknown History Ointment] Esomeprazole Magnesium [Nexium] 20 mg GT DAILY 03/14/19 03/14/19 Unknown History Fentanyl 25 Microgm/Hr Patch 25 mcg TD Q72H 03/14/19 03/14/19 Unknown History [Duragesic 25 Microgm/Hr Patch] L. Rhamnosus/Inulin [Culturelle 1 cap GT BID 03/14/19 03/14/19 Unknown History Capsule] Multivits W-Fe,Other Min [Centrum] 15 ml GT DAILY 03/14/19 03/14/19 Unknown History Protein Hydrolysate,Milk [Liquid 30 ml GT DAILY 03/14/19 03/14/19 Unknown History Protein Fortifier] - History of Present Illness-ABD Nature of Presenting Problems: 68 y/o BF sent to ER after having several episodes of coffee ground emesis this am and possibly aspirated. Pt is DNR and has paperwork with her. Abdominal Pain Onset Location: reports: epigastric Pain Radiation: reports: no radiation Quality of Pain: reports: aching Severity in ED: reports: mild Onset/Duration: reports: unsure Timing: reports: improving Activities at Onset: reports: light activity Exposure to sick contacts?: No Modifying Factors: improves with: nothing Associated Symptoms: reports: vomiting Last BM: unsure Dark Stools Present?: reports: none noticed Rectal Bleeding: reports: none # of Diarrhea Episodes: 0 Rectal Pain: reports: none # of Vomiting Episodes: 3 Emesis Description: reports: coffee grounds Bruising or Bleeding Gums?: No Similar Symptoms Previously?: Yes Recently seen or treated by another doctor?: No Review of Systems - Adult - REVIEW OF SYSTEMS - ADULT Constitutional: reports: no symptoms reported, see HPI Eyes: reports: no symptoms reported, see HPI Ears, Nose, Mouth & Throat: reports: no symptoms reported, see HPI Cardiovascular: reports: no symptoms reported, see HPI Respiratory: reports: no symptoms reported, see HPI Gastrointestinal: reports: see HPI, abdominal pain, vomiting Genitourinary: reports: no symptoms reported, see HPI Musculoskeletal: reports: no symptoms reported, see HPI Integumentary: reports: no symptoms reported, see HPI Neurological: reports: no symptoms reported, see HPI Psychiatric: reports: no symptoms reported, see HPI Endocrine: reports: no symptoms reported, see HPI Hematologic/Lymphatic: reports: no symptoms reported, see HPI Allergic/Immunologic: reports: no symptoms reported, see HPI All Other Systems: Reviewed and Negative Past History - Adult - PAST MEDICAL HISTORY-ADULT Review of Records: reports: Nursing Assessment Review, Medications Reviewed, Social history reviewed & non-contributory. Major Childhood Illnesses: reports: denies history Cardiovascular: reports: hyperlipidemia Respiratory: reports: denies history Gastrointestinal: reports: GERD Obstetrical/Gynecological: reports: denies history Genitourinary: reports: denies history Musculoskeletal: reports: denies history Neurological: reports: CVA, stroke deficits (cannot communicate/contactures) Endocrine/Immune: reports: Diabetes, thyroid disorder Other Conditions: reports: denies history - PRIOR SURGERIES/PROCEDURES Surgical/Procedure History: reports: hysterectomy, other (throat surgery) - IMMUNIZATION STATUS Childhood Immunizations: See Nurse Assessment Flu Vaccine: See Nurse Assessment - FAMILY HISTORY Family History: reviewed, not pertinent Physical Exam-General - PHYSICAL EXAM-ADULT Initial Vital Signs Reviewed: Yes - CONSTITUTIONAL General Appearance: no apparent distress, slow to respond - EYES Eyes: PERRL/EOMI - HEAD, EARS, NOSE, MOUTH & THROAT HENMT: normocephalic/atraumatic, moist mucous membranes - NECK Neck: non-tender, full range of motion, supple, normal inspection - RESPIRATORY Respiratory: chest non-tender, lungs clear, rhonchi - CARDIOVASCULAR Cardiovascular: normal peripheral pulses, regular rate, rhythm, no edema, no gallop, no JVD, no murmur - GASTROINTESTINAL (ABDOMEN) Abdominal Exam: normal bowel sounds, soft, no organomegaly, no pulsatile mass - LYMPHATIC Lymphatic: no adenopathy - MUSCULOSKELETAL Back Exam: normal inspection, no CVA tenderness, no vertebral tenderness Extremity: non-tender, normal capillary refill - SKIN Integumentary: normal color, normal turgor - NEUROLOGIC Neurologic: tube worker II-XII nml as tested, grossly normal, no motor/sensory deficits Progress - PLAN OF CARE/RESULTS Result Diagrams: 03/14/19 04:33 03/14/19 04:33 - CONSULTS/PCP/HOSPITALIST Notification #1 *Consult/PCP/Hospitalist*: Dr Campo Time Discussed: 07:00 Consult Disposition: Will see in ED, Admit Departure - Departure Date of Disposition Decision: 03/14/19 Time of Disposition Decision: :19 DIAGNOSIS: Aspiration pneumonia, Dehydration Disposition: ADMITTED INPATIENT 09 Certified Medical Emergency: Emergent Condition: Fair Referrals and Follow-Ups: Wilfredo Campo MD [Primary Care Provider] - - Critical Care Note This patient required my direct & personal management of CC.: No Attestation - Physician/ PAUL Attestation Patient care was provided by Advanced Practice Provider:: No The physician spent face to face time with patient:: Yes Advanced Practice Provider documentation review:: Supervising physician onsite and consulted in the evaluation and care of this patient. The physician did have a face to face encounter with the patient.
[2019-03-14] MEDS ORDERED: NS 1,000 ML IV ONE (04:34)
--- NOTE | 2019-03-14 04:43 | EKG Report ---
Test Performed on : 03/14/2019 04:42:01 AM Test Reason : tachycardia Blood Pressure : / mmHG Vent. Rate : 125 BPM Atrial Rate : 125 BPM P-R Int : 136 ms QRS Dur : 064 ms QT Int : 326 ms P-R-T Axes : 066 -29 076 degrees QTc Int : 470 ms Sinus tachycardia. Possible Left atrial enlargement Low voltage QRS Borderline ECG When compared with ECG of 29-AUG-2018 15:21, No significant change was found Unconfirmed Result
[2019-03-14 05:02] LABS: BASO# 0.01 X1000 (0.0-0.2); BASO% 0.1 % (0.0-0.8); HEMATOCRIT 36.5 % (37.0-47.0); HEMOGLOBIN 12.1 g/dL (12.0-16.0); IMM GRAN# 0.02 X1000 (0.0-0.04); IMM GRAN% 0.1 % (0.0-0.5); LYMPH# 0.88 X1000 (1.2-3.4); LYMPH% 6.2 % (20.5-51.1); MCH 32.6 PG (27-31); MCHC 33.2 g/dL (33-37); MCV 98.4 FL (81-99); MONO# 0.61 X1000 (0.11-0.59); MONO% 4.3 % (1.7-9.3); MPV 10.8 FL (7.4-10.4); NEUT# 12.68 X1000 (1.4-6.5); NEUT% 89.3 % (42.2-75.2); PLT 228 X1000 (130-400); RBC 3.71 XMIL (4.2-5.4); RDW 13.4 % (11.5-14.5)
[2019-03-14 05:05] LABS: INR 1.12; PROTIME 14.6 Seconds (11.0-16.0)
[2019-03-14 05:06] LABS: PTT 35.5 Seconds (22.3-41.8)
[2019-03-14 05:16] LABS: AGAP 16; BUN 37 mg/dL (8-22); CHLORIDE 92 mmol/L (98-107); COSMO 290; CREATININE 0.5 mg/dL (0.5-0.9); GLUCOSE 193 mg/dL (70-104); POTASSIUM 3.8 mmol/L (3.5-5.1); SODIUM 138 mmol/L (136-145); TCO2 30 mmol/L (25-35)
[2019-03-14 05:17] LABS: ALKALINE PHOSPHATASE 106 U/L (32-104); CALCIUM 9.9 mg/dL (8.8-10.2); ESTIMATED GFR > 60; GOT 24 U/L (10-30); GPT 19 U/L (10-36); TOTAL PROTEIN 7.9 g/dL (6.3-8.3)
--- NOTE | 2019-03-14 07:05 | Diag Imaging Result Doc PS360 ---
EXAM: CHEST-1 VIEW 03/14/2019 HISTORY: aspiration TECHNIQUE: AP portable at 0507 COMMENT: There are platelike opacities in both lower lobes which are slightly worse than on the previous examination of 01/05/2019. There is a healing fracture of the left humerus. Otherwise are has been no significant change. IMPRESSION: Bibasilar atelectasis versus pneumonia. Electronically signed by Santos [place] 03/14/2019 7:02 AM
[2019-03-14] MEDS ORDERED: ZOSYN 3.375 GM in NS 50 ML IV ONE (07:10)
[2019-03-14] MEDS ORDERED: VANCOMYCIN 1 GM/NS 1 GM/250 ML IVPB IV ONE (07:10)
[2019-03-14 10:24] LABS: URINE SOURCE CATH
[2019-03-14 10:35] LABS: BILIRUBIN URINE NEGATIVE (NEGATIVE); BLOOD URINE TRACE (NEGATIVE); COLOR YELLOW; GLUCOSE URINE NEGATIVE (NEGATIVE); KETONE URINE TRACE mg/dL (NEGATIVE); LEUKOCYTES URINE LARGE (NEGATIVE); NITRITE URINE NEGATIVE (NEGATIVE); PH URINE 8.5; PROTEIN URINE 30 mg/dL (NEGATIVE); SP GRAVITY URINE 1.018; TURBIDITY URINE HAZY (CLEAR); UROBILINOGEN URINE NORMAL (NORMAL)
[2019-03-14 11:00] LABS: UR EPITHELIAL CELLS >10 /HPF (<10); URINE BACTERIA 4+ /HPF; URINE RBC <10 /HPF (<10)
[2019-03-14] MEDS ORDERED: VANCOMYCIN IV PER PHARMACY MISC SCH (11:34)
[2019-03-14] MEDS ORDERED: ATIVAN IV PRN (11:34)
[2019-03-14] MEDS ORDERED: POTASSIUM CHLORIDE 10 MEQ in NS 1,000 ML IV ONE (12:00)
[2019-03-14] MEDS: SODIUM CHLORIDE 0.9% INJ SCH (14:55)
[2019-03-14] MEDS: PROTONIX IV SCH ×2 (14:55→20:12)
[2019-03-14] MEDS: ZOSYN 2.25 GM in NS 50 ML IV SCH ×2 (14:56→20:11)
--- NOTE | 2019-03-14 15:15 | HISTORY AND PHYSICAL ---
HISTORY OF PRESENT ILLNESS: Ms. Begum is a 68-year-old patient, resident of [facility], with multiple medical problems. The patient is not able to give any history. History was gotten from ER records. I also talked to the nurse at the group home. Last night the patient had some chest congestion. She had some coffee-ground emesis x2. The patient was restless and tachycardic. They had to suction her late evening yesterday. Because of hematemesis and tachycardia, nurses talked to the patient's son and he wanted her to be sent to the hospital and patient was sent to the emergency room. In the ER, patient found to have leukocytosis. She did have coffee-grounds emesis. The patient was tachycardic, at times restless. Chest x-ray, there was question about aspiration pneumonia and the ER physician decided to admit the patient for further care. No history of high-grade fever or chills. Occasional cough. No expectoration. No diarrhea, blood, or mucus in the stool. The patient is getting fed through the PEG tube. At times her urine had an order. Urinalysis did reveal 4+ bacteria. No abdominal distention. The patient was restless at times. No further history available at this time. ALLERGIES: No known drug allergy. HOME MEDICATIONS: Tylenol, aspirin, calcium carbonate with vitamin D, Nexium, Icar C, insulin, lactulose, Synthroid, multivitamin with iron, Zoloft, zinc, Duragesic patch, bronchodilator treatment. PAST MEDICAL HISTORY: History of CVA with expressive aphasia. The patient had dysphagia and a PEG tube. Flexion contracture of both upper and lower limbs, chronic pain, hypothyroidism, depression, history suggestive of bronchospasm, history of GI bleed, chronic pain. PERSONAL HISTORY: Single. Lives in the group home. Needs assistance in activities of daily living. PAST SURGICAL HISTORY: Hysterectomy and throat cancer. FAMILY HISTORY: Noncontributory. PHYSICAL EXAMINATION: GENERAL: Elderly patient in mild distress. VITAL SIGNS: On admission, blood pressure 96/54, heart rate was ranging from 117-175, respiration 25, temperature 98.3 degrees. SKIN: Senile turgor. HEENT: Head is atraumatic, normocephalic. Plover conjunctivae. Anicteric sclerae. Extraocular muscle movement, patient is uncooperative. Ears and nose benign. NECK: Supple. No JVD, thyromegaly, or lymphadenopathy. CHEST: Bibasilar crepitation. Occasional wheezing. CARDIOVASCULAR: S1 and S2. Tachycardia. No gallop. ABDOMEN: Soft, scaphoid. PEG tube is in place. EXTREMITIES: No cyanosis, clubbing. Patient does have flexion contracture of both lower and upper limbs. PROCESSING LEAD: Alert, awake. Uncooperative for detailed neurologic examination. LABORATORY DATA: Revealed WBC count 14.2, hemoglobin 12.1, hematocrit 36.5, platelet count 228,000. The patient does have a left shift. PT/INR 1.12, PTT 35.5. Her BUN was 37, creatinine was 0.5. Cardiac isoenzymes were negative. Urinalysis: Large leukocyte, 4+ bacteria. Chest x- ray revealed atelectasis versus pneumonia. IMPRESSIONS: 1. The patient presented with possible upper gastrointestinal bleed. Could be due to gastritis, aspiration pneumonia. 2. The patient had a cerebrovascular accident and flexion contracture of both upper and lower limbs. 3. Found to have a urinary tract infection. 4. Gastritis and reflux disease. 5. Hypothyroidism. 6. History suggestive of diabetes mellitus. 7. Chronic pain. PLANS: Admit the patient. Gentle hydration. IV antibiotics. Symptomatic treatment. Change position frequently. Oxygen. Overall prognosis fair to guarded. cc: Wilfredo Campo MD
[2019-03-14] MEDS: DUONEB (A & A) INH PRN ×2 (16:19→20:21)
[2019-03-14 19:28] LABS: HEMATOCRIT 34.5 % (37.0-47.0); HEMOGLOBIN 11.2 g/dL (12.0-16.0)
[2019-03-14] MEDS: VANCOMYCIN 1,300 MG in NS 250 ML IV SCH (23:23)
[2019-03-14 23:26] LABS: HEMATOCRIT 31.9 % (37.0-47.0); HEMOGLOBIN 10.4 g/dL (12.0-16.0)
[2019-03-15] MEDS: ZOSYN 2.25 GM in NS 50 ML IV SCH ×4 (01:20→18:54)
[2019-03-15 08:03] LABS: BASO# 0.02 X1000 (0.0-0.2); BASO% 0.2 % (0.0-0.8); EOS# 0.01 X1000 (0.0-0.7); EOS% 0.1 % (0.0-10.0); HEMATOCRIT 32.1 % (37.0-47.0); HEMOGLOBIN 10.4 g/dL (12.0-16.0); IMM GRAN# 0.05 X1000 (0.0-0.04); IMM GRAN% 0.4 % (0.0-0.5); LYMPH# 0.91 X1000 (1.2-3.4); MCH 32.3 PG (27-31); MCHC 32.4 g/dL (33-37); MCV 99.7 FL (81-99); MONO# 0.58 X1000 (0.11-0.59); MONO% 5.1 % (1.7-9.3); MPV 10.2 FL (7.4-10.4); NEUT# 9.87 X1000 (1.4-6.5); NEUT% 86.2 % (42.2-75.2); PLT 216 X1000 (130-400); RBC 3.22 XMIL (4.2-5.4); RDW 13.6 % (11.5-14.5); WBC 11.44 X1000 (4.8-10.8)
[2019-03-15 08:06] LABS: HEMOGLOBIN A1C 5.9 % (4.8-6.0)
--- NOTE | 2019-03-15 08:16 | PROGRESS NOTE ---
DATE: 03/15/2019 SUBJECTIVE: Ms. Begum is doing fair. The patient does have cough with thick sputum. No high- grade fever or chills. History part is limited at times. Tachycardia. We are still holding her feeding. No hematemesis. No typical chest pain. The patient does not seems to be in any pain. The patient admitted with possible upper GI bleed and aspiration pneumonia. OBJECTIVE: Vital Signs: Her vital signs noted. Neck: Neck is supple. No JVD. Lungs: Bibasilar crepitations. Heart: S1 and S2 heard. Abdomen: Soft, scaphoid. PEG tube is in place. Extremities: The patient does have flexion contractures of both upper and lower limbs. STRIPPER AND PRINTER: Alert, awake. The patient does have expressive aphasia. Uncooperative for detailed exam. LABS AND X-RAYS: Possible aspiration pneumonia. Her last hemoglobin 10.4, hematocrit 31.9, which was stable. Urinalysis 10 to 20 WBCs. Glucose site was large. Chest x-ray revealed bilateral atelectasis versus pneumonia. CONSIDERATION: 1. Urinary tract infection. 2. Aspiration pneumonia. 3. Diabetes mellitus. 4. History of CVA. 5. Flexion contracture, both upper and lower limbs. PLAN: We will continue current treatment. Close observation. I am going to check today's labs and continue rest of the treatment. cc: Wilfredo Campo MD
[2019-03-15 08:20] LABS: BANDS 1 % (0-1); EOS 1 % (1-10); LARGE PLATELETS 1+; LYMPHS 15 % (21-51); MONO 3 % (1-9); SEGS 80 % (42-75)
[2019-03-15 08:21] LABS: AGAP 15; ALB/GLOB RATIO 0.9; ALBUMIN 3.2 g/dL (3.5-5.0); ALKALINE PHOSPHATASE 81 U/L (32-104); BUN 17 mg/dL (8-22); CALCIUM 9.6 mg/dL (8.8-10.2); CHLORIDE 104 mmol/L (98-107); COSMO 286; CREATININE 0.5 mg/dL (0.5-0.9); ESTIMATED GFR > 60; GLUCOSE 156 mg/dL (70-104); GOT 20 U/L (10-30); GPT 13 U/L (10-36); MAGNESIUM 1.8 mg/dL (1.5-2.7); SODIUM 141 mmol/L (136-145); TCO2 22 mmol/L (25-35); TOTAL BILIRUBIN 0.46 mg/dL (0.20-1.00); TOTAL PROTEIN 6.9 g/dL (6.3-8.3)
[2019-03-15 08:39] LABS: FREE T4 1.33 ng/dL (0.93-1.70); TSH 1.86 uIUmL (0.27-4.20)
[2019-03-15] MEDS: PROTONIX IV SCH ×2 (09:30→20:33)
[2019-03-15 13:28] LABS: INR 1.31; PROTIME 16.5 Seconds (11.0-16.0)
[2019-03-15] MEDS ORDERED: NS 250 ML ONE (14:20)
--- NOTE | 2019-03-15 16:07 | EKG Report ---
Test Performed on : 03/15/2019 4:01:04 PM Test Reason : high HR Blood Pressure : / mmHG Vent. Rate : 134 BPM Atrial Rate : 134 BPM P-R Int : 122 ms QRS Dur : 060 ms QT Int : 370 ms P-R-T Axes : 016 083 -21 degrees QTc Int : 552 ms Sinus tachycardia. Low voltage QRS T wave abnormality, consider inferior ischemia Abnormal ECG When compared with ECG of 14-MAR-2019 04:42, (Unconfirmed) QRS axis shifted right T wave inversion now evident in Inferior leads Marked baseline artifact is present Confirmed by Lizzeth BARRERA, Hamilton Price ([id number]) on 03/15/2019 8:58:05 PM
--- NOTE | 2019-03-15 16:18 | Diag Imaging Result Doc PS360 ---
EXAM: CHEST-PORTABLE HISTORY: PIC line placement TECHNIQUE: Single view COMPARISON: 03/14/2019 FINDINGS: Interval placement of a right-sided PICC line. The tip overlies the right atrium. There is atelectasis in the left base. No cardiomegaly. No pulmonary edema. No consolidation. IMPRESSION: Right-sided PICC line in good position. Electronically signed by Carl Fernandez 03/15/2019 4:16 PM
[2019-03-15] MEDS: VANCOMYCIN 1,300 MG in NS 250 ML IV SCH (16:57)
[2019-03-15] MEDS: POTASSIUM CHLORIDE 20 MEQ/SWI 20 MEQ/100 ML IVPB IV SCH ×2 (17:07→20:33)
--- NOTE | 2019-03-15 19:13 | PROGRESS NOTE ---
DATE: 03/15/2019 SUBJECTIVE: Ms. Begum is doing better. The patient had PICC line placed today because it was very hard to access IV line. No fever or chills. The patient had significant tachyarrhythmia after PICC line, but she settled down. No high-grade fever or chills. Urinalysis did reveal UTI. Urine culture stating requiring more time for incubation. Hemoglobin and hematocrit are stable. OBJECTIVE: Vital signs: Noted. Lungs: A few basilar crepitations. Heart: S1 and S2 heard. Abdomen: Soft. No distention. Bowel sounds present. Central nervous system: Alert, awake. Uncooperative for detailed exam. CONSIDERATIONS: 1. Urinary tract infection. 2. Possible aspiration pneumonia. 3. gastritis. Clinically, doing better. I am going to resume her feeding slowly, continue IV antibiotics and IV fluids, and close observation. Her chest x-ray after PICC line reviewed. cc: Wilfredo Campo MD MTDD
[2019-03-15] MEDS: DUONEB (A & A) INH PRN (20:15)
[2019-03-15] MEDS: SODIUM CHLORIDE 0.9% INJ SCH (20:33)
[2019-03-16] MEDS: ZOSYN 2.25 GM in NS 50 ML IV SCH ×4 (02:51→23:00)
--- NOTE | 2019-03-16 07:15 | PROGRESS NOTE ---
DATE: 03/16/2019 SUBJECTIVE: Ms. Begum and is doing fairly well. I started her feeding back. She is tolerating it well. No clinical evidence of active GI bleed. No nausea or vomiting. Patient does have cough with expectoration. The patient had episode of tachycardia yesterday. History part is limited. OBJECTIVE: Vital signs: Reviewed. Neck: Is supple. No JVD. Lungs: Bibasilar crepitations. Heart: S1 and S2 heard. Abdomen: Soft, scaphoid. Bowel sounds present. PEG tube is in place. BRIDGE INSPECTOR: Alert, awake, uncooperative for detailed exam. The patient does have flexion contracture of both upper and lower limbs and hand. CONSIDERATION: 1. The patient admitted with GI bleed. Seems to be clinically stable. I am going to hold aspirin at this time. 2. Aspiration pneumonia versus atelectasis. Patient is on broad-spectrum antibiotics which will continue. 3. Tachyarrhythmia. 4. 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 5. History of CVA. 6. Hypothyroidism on Synthroid. 7. Situational depression on Zoloft. PLAN: Plan is to continue current treatment. Gradually advance her diet. Close observation. We will plan discharging her back to rehab on Tuesday. cc: Wilfredo Campo MD
[2019-03-16] MEDS: DUONEB (A & A) INH PRN (08:34)
--- NOTE | 2019-03-16 08:52 | Diag Imaging Result Doc PS360 ---
EXAM: CHEST-PORTABLE HISTORY: PICC PLACEMENT TECHNIQUE: Chest single view COMPARISON: 03/15/2019 FINDINGS: Poor inspiratory effort. No cardiomegaly. No pulmonary edema. No pneumonia. No pleural effusions. The right-sided PICC line has its tip near the junction of the superior vena cava and right atrium. No pneumothorax. IMPRESSION: No acute abnormality. Electronically signed by Carl Fernandez 03/16/2019 8:50 AM
[2019-03-16] MEDS: PROTONIX IV SCH ×2 (09:32→23:00)
[2019-03-16] MEDS: CALTRATE 600 + D GT SCH ×2 (09:33→23:00)
[2019-03-16] MEDS: PATIENT'S OWN MED TOP SCH (09:33)
[2019-03-16] MEDS: ZOLOFT GT SCH (09:33)
[2019-03-16] MEDS: LACTULOSE GT SCH (09:33)
[2019-03-16] MEDS: SYNTHROID GT SCH (09:33)
[2019-03-16] MEDS: VANCOMYCIN 1,300 MG in NS 250 ML IV SCH (09:33)
[2019-03-16 10:37] LABS: BASO# 0.02 X1000 (0.0-0.2); BASO% 0.1 % (0.0-0.8); HEMATOCRIT 32.9 % (37.0-47.0); HEMOGLOBIN 10.7 g/dL (12.0-16.0); IMM GRAN# 0.04 X1000 (0.0-0.04); IMM GRAN% 0.3 % (0.0-0.5); LYMPH# 1.17 X1000 (1.2-3.4); LYMPH% 8.4 % (20.5-51.1); MCH 33.1 PG (27-31); MCHC 32.5 g/dL (33-37); MCV 101.9 FL (81-99); MONO# 0.66 X1000 (0.11-0.59); MONO% 4.8 % (1.7-9.3); NEUT# 11.98 X1000 (1.4-6.5); NEUT% 86.4 % (42.2-75.2); PLT 219 X1000 (130-400); RBC 3.23 XMIL (4.2-5.4); RDW 14.1 % (11.5-14.5); WBC 13.87 X1000 (4.8-10.8)
[2019-03-16 10:54] LABS: BANDS 4 % (0-1); LARGE PLATELETS 2+; LYMPHS 7 % (21-51); MONO 1 % (1-9); SEGS 88 % (42-75)
[2019-03-16 11:11] LABS: AGAP 18; BUN 18 mg/dL (8-22); CALCIUM 9.7 mg/dL (8.8-10.2); CHLORIDE 105 mmol/L (98-107); COSMO 290; CREATININE 0.5 mg/dL (0.5-0.9); ESTIMATED GFR > 60; GLUCOSE 197 mg/dL (70-104); POTASSIUM 3.2 mmol/L (3.5-5.1); SODIUM 142 mmol/L (136-145); TCO2 19 mmol/L (25-35)
[2019-03-16] MEDS ORDERED: POTASSIUM CHLORIDE 20% LIQUID PEG ONE (21:13)
[2019-03-16] MEDS: SODIUM CHLORIDE 0.9% INJ SCH (23:00)
[2019-03-17] MEDS: ZOSYN 2.25 GM in NS 50 ML IV SCH ×4 (01:28→19:41)
[2019-03-17] MEDS: VANCOMYCIN 1,300 MG in NS 250 ML IV SCH ×2 (02:04→22:15)
[2019-03-17] MEDS: DUONEB (A & A) INH PRN ×2 (03:47→20:04)
[2019-03-17] MEDS: CALTRATE 600 + D GT SCH ×2 (09:05→22:05)
[2019-03-17] MEDS: PATIENT'S OWN MED TOP SCH (09:05)
[2019-03-17] MEDS: ZOLOFT GT SCH (09:05)
[2019-03-17] MEDS: SYNTHROID GT SCH (09:05)
[2019-03-17] MEDS: SODIUM CHLORIDE 0.9% INJ SCH ×2 (09:05→22:05)
[2019-03-17] MEDS: PROTONIX IV SCH ×2 (09:05→22:05)
[2019-03-17] MEDS: LACTULOSE GT SCH (09:05)
--- NOTE | 2019-03-17 10:45 | Diag Imaging Result Doc PS360 ---
EXAM: CHEST-PORTABLE 03/17/2019 HISTORY: verify g-tube placement TECHNIQUE: AP portable semiupright at 1018 COMMENT: There is a PICC line on the right with its tip in the superior vena cava. The right hemidiaphragm is slightly elevated as it was on 03/16/2019. Overall the appearance the chest has not changed significantly. IMPRESSION: Stable chest. Electronically signed by Santos Canada 03/17/2019 10:42 AM
--- NOTE | 2019-03-17 13:30 | PROGRESS NOTE ---
DATE: 03/17/2019 SUBJECTIVE: The patient is a 68-year-old female, patient of Dr. Campo, admitted on 03/14 from [facility] with multiple medical problems. Basically, possible upper GI bleeding, aspiration pneumonia. The patient has a CVA with multiple flexion deformities completely bedridden without any activities of living, as well as instrumental activities. REVIEW OF SYSTEMS: G-tube came loose and the nurses put it back. They want to confirm the tube position. Obviously the tube was inflated. The patient is getting nutrition 20 mL an hour and they did a chest x-ray which is unremarkable. PAST MEDICAL HISTORY: Reviewed. PAST SURGICAL HISTORY: Reviewed. MEDICINES: Reviewed. ALLERGIES: Not known. PHYSICAL EXAMINATION: Vital Signs: Temperature is 99.4 degrees, pulse is 89, blood pressure is 124/66, 3 L nasal cannula, 85%, and the patient is basically bedridden in position and responds to the verbal stimulus. Lungs: Bilateral air entry. Heart: Distant heart sounds. Abdomen: Belly is soft. Arias was placed in contracted position. INVESTIGATIONS: None reported as for yesterday. White cell count 13.87, hematocrit 32.9, platelets 219. Sodium 142, potassium 3.2, chloride 101. BUN 18, creatinine 0.8. ASSESSMENT AND PLAN: 1. Aspiration pneumonia is improving. 2. Nutrition through the percutaneous endoscopic gastrostomy, slowly increasing to 30 as tolerated. Spoke to the nurses. Completely on nothing by mouth. 3. Status post PICC line on the right side. Currently receiving intravenous vancomycin and Zosyn. 4. Depression on Zoloft. 5. Ativan as needed for agitation. 6. Hypothyroidism on Synthroid. 7. Chronic constipation on lactulose. 8. Repeat the labs in the morning; CBC and SMA 7. LEVEL OF DOCUMENTATION: 35 minutes. cc: MD Wilfredo Rodriguez MD
[2019-03-18] MEDS: MORPHINE IV PRN (00:23)
[2019-03-18] MEDS: ZOSYN 2.25 GM in NS 50 ML IV SCH ×3 (01:25→13:37)
[2019-03-18 07:07] LABS: BASO# 0.02 X1000 (0.0-0.2); BASO% 0.2 % (0.0-0.8); EOS# 0.13 X1000 (0.0-0.7); EOS% 1.1 % (0.0-10.0); HEMATOCRIT 30.9 % (37.0-47.0); HEMOGLOBIN 10.1 g/dL (12.0-16.0); IMM GRAN# 0.07 X1000 (0.0-0.04); IMM GRAN% 0.6 % (0.0-0.5); LYMPH# 1.61 X1000 (1.2-3.4); LYMPH% 14.1 % (20.5-51.1); MCH 32.9 PG (27-31); MCHC 32.7 g/dL (33-37); MCV 100.7 FL (81-99); MONO# 0.83 X1000 (0.11-0.59); MONO% 7.3 % (1.7-9.3); MPV 9.9 FL (7.4-10.4); NEUT# 8.73 X1000 (1.4-6.5); NEUT% 76.7 % (42.2-75.2); PLT 198 X1000 (130-400); RBC 3.07 XMIL (4.2-5.4); RDW 13.8 % (11.5-14.5); WBC 11.39 X1000 (4.8-10.8)
[2019-03-18 07:24] LABS: AGAP 8; BUN 16 mg/dL (8-22); CALCIUM 9.1 mg/dL (8.8-10.2); CHLORIDE 108 mmol/L (98-107); COSMO 291; CREATININE 0.6 mg/dL (0.5-0.9); ESTIMATED GFR > 60; GLUCOSE 146 mg/dL (70-104); POTASSIUM 3.3 mmol/L (3.5-5.1); SODIUM 144 mmol/L (136-145); TCO2 28 mmol/L (25-35)
[2019-03-18] MEDS: LACTULOSE GT SCH (09:55)
[2019-03-18] MEDS: PROTONIX IV SCH (09:56)
[2019-03-18] MEDS: CALTRATE 600 + D GT SCH (09:56)
[2019-03-18] MEDS: PATIENT'S OWN MED TOP SCH (09:56)
[2019-03-18] MEDS: SYNTHROID GT SCH (09:56)
[2019-03-18] MEDS: ZOLOFT GT SCH (09:56)
[2019-03-18] MEDS: VANCOMYCIN 1,300 MG in NS 250 ML IV SCH (14:12)
[2019-03-18] MEDS ORDERED: KLOR-CON PO ONE (14:16)
--- NOTE | 2019-03-18 14:41 | PROGRESS NOTE ---
DATE: 03/18/2019 SUBJECTIVE: patient is still nonverbal, in a position. Percutaneous endoscopic gastrostomy was advanced and tolerating the tube feeds at 30 mL per hour. No complaints, as per the nursing staff. Temperature is 100.0 degrees, pulse 99, blood pressure 120/61, 2 L nasal cannula of 94%. Poor air entry. Belly is soft. In the position. EXAMINATION: Low-grade fever at 100.4, pulse 99, blood pressure is stable. HEENT Examination: Within normal limits, on oxygen. Chest: Midline scar. Bilateral air entry. No signs of pneumonitis. Multiple incisional hernias noted. No peripheral edema, cyanosis. No signs of gangrene. NVESTIGATIONS: White cell count 11, hematocrit 30.9, platelets 119,000. Sodium 144, potassium 3.3, chloride 108, BUN 16, creatinine 0.6, glucose 153, calcium 9.1. Urine cultures positive for Providencia stuartii. ASSESSMENT AND PLAN: 1. Altered mental status due to metabolic encephalopathy. 2. Urinary tract infection, Providencia, on Zosyn and vancomycin. 3. Tube feeds, advance, 30 mL per hour. 4. Hypothyroidism, Synthroid. 5. Lactulose through the G-tube. 6. Had a peripherally inserted central catheter line on the right side. She is stable and Dr. Campo is going to follow up. 7. Hypokalemia. Replace the potassium today. LEVEL OF DOCUMENTATION: 25 minutes. cc: MD Wilfredo Rodriguez MD MTDAlexis
[2019-03-19] MEDS: MORPHINE IV PRN (00:17)
[2019-03-19] MEDS: PROTONIX IV SCH ×2 (00:17→08:06)
[2019-03-19] MEDS: ZOSYN 2.25 GM in NS 50 ML IV SCH ×5 (00:17→23:58)
[2019-03-19] MEDS: TYLENOL LIQUID GT PRN ×2 (00:24→06:00)
[2019-03-19] MEDS: CALTRATE 600 + D GT SCH ×3 (00:26→23:59)
[2019-03-19] MEDS ORDERED: MORPHINE IV PRN (03:05)
--- NOTE | 2019-03-19 07:13 | PROGRESS NOTE ---
DATE: 03/19/2019 SUBJECTIVE: Ms. Begum is doing fair. History part was limited. According to the nurses, patient does have low-grade fever, around 100.1 to 100.2. At times, tachycardia. No nausea or vomiting. Tolerating feeding well. No diarrhea. O2 saturation satisfactory. History part was limited. OBJECTIVE: Vital Signs: Noted. Neck is supple. No JVD. Lungs: Decreased air entry at both the bases. CVS: S1 and S2. Tachycardia. Abdomen: Soft, scaphoid. Bowel sounds present. PEG tube is in place. FLUOROSCOPE OPERATOR: Alert, awake. Uncooperative for detailed exam. 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 CONSIDERATIONS: Plan was to discharge patient back to long term today but because of low-grade fever, I am going to repeat blood work, urine, and chest x-ray today. Watch patient one more day. Continue current treatment. I am going to repeat blood culture. Her urine culture grew Providencia. The patient is on Azactam and vancomycin, for possible vancomycin and Zosyn. Clinically, patient is doing fairly well. The patient had a peripherally inserted central catheter line placed. I am going to check blood culture and appropriate lab again. Her other problems include: 1. Status post cerebrovascular accident, expressive aphasia. 2. Flexion contracture. 3. Hypothyroidism. 4. Low-grade fever. 5. Gastritis. PLAN: Overall plan discussed with the nurse. cc: Wilfredo Campo MD
--- NOTE | 2019-03-19 07:25 | Diag Imaging Result Doc PS360 ---
EXAM: CHEST-PORTABLE HISTORY: fever TECHNIQUE: Chest single view COMPARISON: 03/17/2019 FINDINGS: The lungs are well expanded except for minimal left basilar atelectasis. The heart is not enlarged. No change in the right-sided PICC line. The vessels are not distended. There are no infiltrates. No effusion identified. IMPRESSION: No pneumonia Electronically signed by Carl Fernandez 03/19/2019 7:22 AM
[2019-03-19 07:48] LABS: URINE SOURCE CLEAN CATCH
[2019-03-19 07:54] LABS: BILIRUBIN URINE NEGATIVE (NEGATIVE); BLOOD URINE MODERATE (NEGATIVE); COLOR YELLOW; GLUCOSE URINE NEGATIVE (NEGATIVE); KETONE URINE NEGATIVE (NEGATIVE); LEUKOCYTES URINE SMALL (NEGATIVE); NITRITE URINE NEGATIVE (NEGATIVE); PROTEIN URINE 70 mg/dL (NEGATIVE); SP GRAVITY URINE 1.027; TURBIDITY URINE CLEAR (CLEAR); UR EPITHELIAL CELLS >10 /HPF (<10); URINE BACTERIA NEGATIVE /HPF; URINE RBC TNTC /HPF (<10); URINE WBC <10 /HPF (<10); UROBILINOGEN URINE NORMAL (NORMAL)
[2019-03-19] MEDS: SYNTHROID GT SCH (08:06)
[2019-03-19] MEDS: ZOLOFT GT SCH (08:06)
[2019-03-19] MEDS: SODIUM CHLORIDE 0.9% INJ SCH (08:07)
[2019-03-19] MEDS: LACTULOSE GT SCH (08:09)
[2019-03-19 08:12] LABS: BASO# 0.01 X1000 (0.0-0.2); BASO% 0.1 % (0.0-0.8); EOS# 0.07 X1000 (0.0-0.7); EOS% 0.4 % (0.0-10.0); HEMATOCRIT 33.3 % (37.0-47.0); HEMOGLOBIN 10.9 g/dL (12.0-16.0); LYMPH# 1.39 X1000 (1.2-3.4); LYMPH% 8.7 % (20.5-51.1); MCH 34.2 PG (27-31); MCHC 32.7 g/dL (33-37); MCV 104.4 FL (81-99); MONO# 0.71 X1000 (0.11-0.59); MONO% 4.4 % (1.7-9.3); MPV 9.8 FL (7.4-10.4); NEUT# 13.83 X1000 (1.4-6.5); NEUT% 86.4 % (42.2-75.2); PLT 195 X1000 (130-400); RBC 3.19 XMIL (4.2-5.4); RDW 13.9 % (11.5-14.5); WBC 16.01 X1000 (4.8-10.8)
[2019-03-19 08:28] LABS: AGAP 10; ALBUMIN 3.2 g/dL (3.5-5.0); ALKALINE PHOSPHATASE 71 U/L (32-104); BUN 21 mg/dL (8-22); CHLORIDE 106 mmol/L (98-107); COSMO 285; CREATININE 0.7 mg/dL (0.5-0.9); ESTIMATED GFR > 60; GLUCOSE 139 mg/dL (70-104); GOT 19 U/L (10-30); GPT 11 U/L (10-36); MAGNESIUM 2.2 mg/dL (1.5-2.7); POTASSIUM 3.8 mmol/L (3.5-5.1); SODIUM 140 mmol/L (136-145); TCO2 24 mmol/L (25-35); TOTAL BILIRUBIN 0.23 mg/dL (0.20-1.00); TOTAL PROTEIN 6.5 g/dL (6.3-8.3)
[2019-03-19 08:44] LABS: BANDS 2 % (0-1); EOS 1 % (1-10); LARGE PLATELETS 1+; LYMPHS 13 % (21-51); MONO 1 % (1-9); SEGS 83 % (42-75)
[2019-03-19] MEDS: PATIENT'S OWN MED TOP SCH (09:36)
[2019-03-19] MEDS: VANCOMYCIN 1,300 MG in NS 250 ML IV SCH (09:53)
[2019-03-20] MEDS: TYLENOL LIQUID GT PRN (00:01)
[2019-03-20] MEDS: VANCOMYCIN 1,300 MG in NS 250 ML IV SCH (01:59)
[2019-03-20] MEDS: ZOSYN 2.25 GM in NS 50 ML IV SCH (04:22)
[2019-03-20] MEDS: DURAGESIC 25 MICROGM/HR PATCH TD SCH (07:56)
--- NOTE | 2019-03-20 08:24 | PROGRESS NOTE ---
DATE: 03/20/2019 SUBJECTIVE: Ms. Begum is doing better. Problems with patient is her temperature at night staying around 100.1 to 100.2. During daytime, her temperature was normal. At times, patient is tachycardic but I think it is artifact on telemetry because when I checked her apical beat, it was normal compared to telemetry. I told nurses to check heart rate manually than going through telemetry. No evidence of any redness at the PICC line. Her chest x-ray done yesterday was no pneumonia. Her urinalysis did reveal evidence of UTI. The urine culture done on admission grew Providencia but the patient is on Zosyn and vancomycin. She is tolerating her feeding well. The history part was limited. OBJECTIVE: Vital Signs: Noted. Neck: Supple. No JVD. Lungs: Bibasilar crepitations. Heart: S1 and S2 heard. Abdomen: Soft, scaphoid. Bowel sounds present. PEG tube is in place. TUNA PURSE SEINER: The patient is sleeping but arousable. PLAN: Overall plan discussed with the nurses and they are in agreement. I am going to put her back on her Duragesic patch, give her Xanax as per shelter schedule, preparing her for discharge. I will take ID opinion. Continue rest of the treatment. ASSESSMENT: Her problems include: 1. Fever. 2. History of cerebrovascular accident. 3. Urinary tract infection. 4. Tachycardia. Could be artifact on telemetry. cc: Wilfredo Campo MD
[2019-03-20] MEDS: PROTONIX IV SCH ×3 (09:55→22:12)
[2019-03-20] MEDS: PATIENT'S OWN MED TOP SCH (09:57)
[2019-03-20] MEDS: MAXIPIME 1 GM in NS 50 ML IV SCH ×2 (11:29→22:13)
[2019-03-20] MEDS: CUBICIN 350 MG in NS 100 ML IV SCH (11:33)
--- NOTE | 2019-03-20 13:24 | INFECTIOUS DISEASE CONSULT REP ---
DATE: 03/20/2019 CONCLUSION: The patient has fever and leukocytosis despite receiving excellent antibiotic treatment. The patient does have 1 of 2 blood cultures positive for gram-positive coccus and she has a urinary tract infection with Providencia. She has been receiving vancomycin and Zosyn which should be able to stop those 2 infections. RECOMMENDATIONS: I have discontinued vancomycin and Zosyn and have started the patient on daptomycin and cefepime. Also, I have requested that the patient's PICC be removed and the tip to be cultured. DISCUSSION: The patient is unable provide a history and no family members are present. The patient has been having fever and leukocytosis. [place] [address], hemoglobin 10.9, platelet count 195,000. Creatinine is 0.7, GFR is greater than 60. Liver function studies are normal. Urinalysis showed no white cells or bacteria. Urine culture grew Providencia. One out of 2 blood cultures grew gram-positive cocci. Repeat urine culture is pending. Chest x-ray shows left basilar atelectasis. PAST MEDICAL HISTORY: Positive for stroke, diabetes mellitus, hypothyroidism, hyperlipidemia, and pneumonia 3-1/2 years ago. PAST SURGICAL HISTORY: Positive for hysterectomy and throat surgery. SOCIAL HISTORY: The patient lives at [facility]. The patient does not have any history of alcohol use, cigarette smoking, or use of illicit drugs. FAMILY HISTORY: Unable to be obtained. DRUG ALLERGIES: None known. MEDICATIONS: Taken in the [facility] where the patient lives include DuoNeb inhaler, Nexium, fentanyl patch, Synthroid, multiple vitamins and minerals, and sertraline. PHYSICAL EXAMINATION: Vital Signs: Temperature was 101 degrees, now it is down to 99 degrees, pulse 123, respirations 14, blood pressure 107/62. The patient is 5 feet tall and weighs 125 pounds. General: This is a chronically ill-appearing elderly female. She is in no acute distress. Head, eyes, ears, nose, and throat: No drainage was noted from the nose or ears. I could not get a good look into her mouth. Neck: No meningismus. Lungs: Clear to auscultation. Cardiovascular: Heart rate is regular. Abdomen: Soft and nontender. Extremities: The patient has a PICC in her right arm. The site is not swollen or draining. Neurologic: The patient lies in bed. She occasionally looked at me while I was examining her. She does not have a tremor. She was nonverbal. She does have contractures of some of her extremities. Thank you for the consult. cc: MD Wilfredo Welsh MD
--- NOTE | 2019-03-20 13:58 | Diag Imaging Result Doc PS360 ---
CT ABD/PELVIS W/PO AND IV CON - 03/20/2019 INDICATION: fever and leukocytosis COMPARISON: 11/13/2016 FINDINGS: There is some mild atelectasis and infiltrate in the lung bases bilaterally left greater than right. There is a GJ tube in good position with the tip in the left side of the pelvis. The balloon is inflated. There is constipation with mild rectal stool impaction. Stable benign hemangioma in the right lobe of the liver. Otherwise all abdominal organs are normal. No free air or free fluid. There is a Arias catheter in the urinary bladder in good position. There are moderate degenerative changes of the spine. No acute or suspicious bony lesion. IMPRESSION: 1. Bibasilar mild infiltrates in the lungs consistent with pneumonia or atelectasis. 2. Constipation with rectal stool impaction. This exam was performed using automated exposure control, adjustment of mA or kV according to patient size, and/or use of iterative reconstruction technique Electronically signed by Dylon Reddy 03/20/2019 1:55 PM
[2019-03-20] MEDS: ATIVAN PEG SCH ×2 (14:07→22:12)
[2019-03-20] MEDS: ZOLOFT GT SCH (14:07)
[2019-03-20] MEDS: CALTRATE 600 + D GT SCH ×2 (14:08→22:13)
[2019-03-20] MEDS: SYNTHROID GT SCH (14:08)
[2019-03-20] MEDS: LACTULOSE GT SCH (14:08)
[2019-03-20] MEDS: SODIUM CHLORIDE 0.9% INJ SCH (22:12)
--- NOTE | 2019-03-21 07:17 | PROGRESS NOTE ---
DATE: 03/21/2019 SUBJECTIVE: Ms. Begum is doing fair. The patient is comfortable. I started her Duragesic patch back. The patient is still on p.r.n. morphine. I resumed her Ativan. The patient did have a good bowel movement yesterday. Her CT scan results reviewed. I appreciate Dr. Adame's help managing this patient. No nausea or vomiting. History part is limited. CT scan of the abdomen and pelvis results reviewed. Her PICC line removed yesterday. Patient's fever is staying around 99.2 to 99.6. Patient is tachycardic at times. I requested the nurses to check a apical pulse because there is possibility of artifact on telemetry. OBJECTIVE: Neck is supple. No JVD.Lungs: Bibasilar crepitations. Heart: S1 and S2 heard. Abdomen: Soft and scaphoid. PEG tube is in place. Extremities: Flexion contracture of both upper and lower limbs. ASSESSMENT AND PLAN: Continue the daptomycin and Maxipen. Monitor patient for fever. Check appropriate labs. Follow culture results. If clinical condition permits, we will plan [facility]. Her problems includes possible aspiration pneumonia, UTI, history suggestive of GI bleed, flexion contracture of upper and lower limbs. I am going to start her on low-dose beta kasey, and hold her Synthroid because of tachycardia. cc: Wilfredo Campo MD MTDD
[2019-03-21] MEDS: MAXIPIME 1 GM in NS 50 ML IV SCH (09:56)
[2019-03-21] MEDS: NEXIUM PACKET PEG SCH (09:57)
[2019-03-21] MEDS: ZOLOFT GT SCH (09:57)
[2019-03-21] MEDS: CALTRATE 600 + D GT SCH ×2 (09:57→20:56)
[2019-03-21] MEDS: TOPROL XL PO SCH (09:57)
[2019-03-21] MEDS: LACTULOSE GT SCH (09:59)
[2019-03-21] MEDS: PATIENT'S OWN MED TOP SCH (09:59)
[2019-03-21] MEDS: ATIVAN PEG SCH ×2 (10:09→20:56)
[2019-03-21] MEDS: CUBICIN 350 MG in NS 100 ML IV SCH (11:53)
[2019-03-21] MEDS: TEFLARO 600 MG in NS 250 ML IV SCH (15:42)
--- NOTE | 2019-03-21 20:21 | INFECTIOUS DISEASE PROGRESS NO ---
DATE: 03/21/2019 PRESENT ILLNESS: Ms. Begum is being treated for fever and leukocytosis with a Providencia urinary tract infection. There is also a possible pneumonia versus atelectasis as noted on the CT scan. She also has gram-positive cocci growing in the most recent urine culture and in 1/2 blood cultures. The blood culture could possibly be a contaminant, depending on the results. MEDICATIONS: She is receiving daptomycin 350 mg IV daily and cefepime 1 g IV every 12 hours. PHYSICAL EXAMINATION: Vital Signs: Temperature is 99 degrees, pulse rate 128, respiratory rate 22, blood pressure 114/59, O2 saturation is 99% on 2 L nasal cannula. General: This is a chronically ill-appearing, elderly female. She is lying in the bed in no acute distress. HEENT: I was unable to visualize the oral vestibule. Conjunctivas are pink. Neck: Has a decrease in suppleness. Respiratory: Lung sounds are clear in the upper lobes, diminished in the bases. No work of breathing is noted. Cardiovascular: Heart rate and rhythm are regular and fast, sinus tach on the monitor. Abdomen: Soft, flat, nontender. Bowel sounds are active. Neurologic: She is awake, alert and making good eye contact. She has a multiple contractures and does not verbalize or follow commands. LABORATORY AND X-RAY: None available today. However, yesterday her abdomen and pelvis CT showed bibasilar mild infiltrates consistent with pneumonia or atelectasis. ASSESSMENT AND PLAN: Ms. Begum is being treated for fever and leukocytosis with a Providencia urinary tract infection. There is also a possible pneumonia as seen on the CT scan yesterday. One out of 2 of her blood cultures is growing a gram-positive coccus. If this is a coag-negative staph, then it is a contaminant and will not need any treatment, but it may be possible that it is a true bacteremia which we will continue to follow. There is also a gram- positive coccus in her urine which is different from the gram-negative Providencia which was found earlier. We will discontinue daptomycin and cefepime, and start her on Ceftaroline 600mg IV every 12 hours. These plans have been discussed with and recommended by Dr. Adame. COMORBIDITIES: For Ms. Begum include that she is an elderly alf patient with history of stroke, diabetes mellitus and decreased mobilization and communication. Dictated by JOURDAN Vincent for Ariel Adame MD cc: MD Wilfredo Welsh MD MTDD
[2019-03-22] MEDS: TEFLARO 600 MG in NS 250 ML IV SCH ×2 (04:14→16:22)
[2019-03-22] MEDS: TOPROL XL PO SCH (08:20)
[2019-03-22] MEDS: LACTULOSE GT SCH (08:21)
[2019-03-22] MEDS: NEXIUM PACKET PEG SCH (08:21)
[2019-03-22] MEDS: CALTRATE 600 + D GT SCH ×2 (08:21→22:46)
[2019-03-22] MEDS: PATIENT'S OWN MED TOP SCH (08:21)
[2019-03-22] MEDS: ZOLOFT GT SCH (08:21)
[2019-03-22] MEDS: ATIVAN PEG SCH ×2 (08:21→22:46)
[2019-03-22 08:38] LABS: BASO# 0.02 X1000 (0.0-0.2); BASO% 0.2 % (0.0-0.8); EOS# 0.26 X1000 (0.0-0.7); EOS% 2.2 % (0.0-10.0); HEMATOCRIT 33.4 % (37.0-47.0); HEMOGLOBIN 10.3 g/dL (12.0-16.0); IMM GRAN# 0.03 X1000 (0.0-0.04); IMM GRAN% 0.3 % (0.0-0.5); LYMPH# 1.18 X1000 (1.2-3.4); LYMPH% 9.8 % (20.5-51.1); MCH 32.1 PG (27-31); MCHC 30.8 g/dL (33-37); MONO# 0.51 X1000 (0.11-0.59); MONO% 4.3 % (1.7-9.3); MPV 9.9 FL (7.4-10.4); NEUT# 9.99 X1000 (1.4-6.5); NEUT% 83.2 % (42.2-75.2); PLT 234 X1000 (130-400); RBC 3.21 XMIL (4.2-5.4); RDW 14.3 % (11.5-14.5); WBC 11.99 X1000 (4.8-10.8)
[2019-03-22 08:57] LABS: AGAP 10; ALB/GLOB RATIO 0.9; ALBUMIN 2.9 g/dL (3.5-5.0); ALKALINE PHOSPHATASE 77 U/L (32-104); BUN 22 mg/dL (8-22); CHLORIDE 109 mmol/L (98-107); COSMO 293; CREATININE 0.5 mg/dL (0.5-0.9); ESTIMATED GFR > 60; GLUCOSE 154 mg/dL (70-104); GOT 21 U/L (10-30); GPT 13 U/L (10-36); MAGNESIUM 2.2 mg/dL (1.5-2.7); POTASSIUM 4.6 mmol/L (3.5-5.1); SODIUM 144 mmol/L (136-145); TCO2 25 mmol/L (25-35); TOTAL BILIRUBIN < 0.15 mg/dL (0.20-1.00); TOTAL PROTEIN 6.2 g/dL (6.3-8.3)
--- NOTE | 2019-03-22 09:39 | Diag Imaging Result Doc PS360 ---
EXAM: CHEST-1 VIEW 03/22/2019 HISTORY: pneumonia TECHNIQUE: AP portable upright at 0914 COMMENT: There is minimal bibasilar atelectasis which has not changed since 03/19/2019. The heart size and pulmonary vascularity are within normal limits. IMPRESSION: Stable chest. Electronically signed by Santos Canada 03/22/2019 9:37 AM
--- NOTE | 2019-03-22 10:50 | PROGRESS NOTE ---
DATE: 03/22/2019 SUBJECTIVE: Ms. Begum is doing fair. She denied any high-grade fever or chills. The patient is still has low-grade fever around 99. Tolerating feeding well. Her blood culture had Staph epidermis. Urine culture was negative. No typical chest pain or palpitation. Her heart rate does fluctuate. I started patient on small dose of beta kasey which seems to be helping. OBJECTIVE: Vital signs noted Neck: Neck is supple. No JVD. Lungs: Decreased air entry both the bases. CVS: CVS S1 and S2 heard. Abdomen: Soft, scaphoid. Bowel sounds present. Extremities: Flexion contracture both lower upper and lower limbs. BONE CHAR KILN OPERATOR: Alert awake uncooperative for detailed exam. LABORATORY DATA: The patient blood culture result reviewed. PLAN: I did discuss patient's condition and plan with Dr. her Adame infectious disease specialist. We will continue current treatment. Plan is [facility]. Her problems includes possible aspiration pneumonia, gastritis, urinary tract infection, flexion contracture of upper and lower limbs. cc: Wilfredo Campo MD
[2019-03-22] MEDS: DUONEB (A & A) INH PRN ×3 (11:20→19:24)
--- NOTE | 2019-03-22 14:01 | INFECTIOUS DISEASE PROGRESS NO ---
DATE: 03/22/2019 PRESENT ILLNESS: The patient has been having fever, leukocytosis, a Providencia urinary tract infection and a possible pneumonia versus atelectasis. She does have a blood culture that is growing gram-positive cocci, but it turns out that the organism is Staph epidermidis in only 1/2 blood cultures. Therefore, I think the Staph isolate is a contaminant and does not require treatment and is not causing the patient to have a leukocytosis. MEDICATIONS: Currently, the patient is on ceftaroline. PHYSICAL EXAMINATION: Vital Signs: Temperature is 99.5 degrees, pulse 95, respirations 22, blood pressure 113/52. General: This is a chronically ill-appearing, elderly female. She is in no acute distress. Head, eyes, ears, nose, and throat: The patient did track with her eyes. She does not have any drainage from the nose or the ears. She did not open her mouth. Neck: No stiffness. Lungs: Clear to auscultation. Cardiovascular: Heart rate is regular. Abdomen: Soft and nontender. Neurologic: The patient is lying in bed. She did track with her eyes she and she did have a blink reflex. She did not move her extremities to request, however. Extremities: The patient has contractures. LAB AND X-RAY: The catheter tip culture is pending. The positive blood culture is Staph epidermidis. This is a contaminant and does not require treatment and is not causing fever or leukocytosis. Repeat urine culture showed no pathogenic growth. I have ordered now a CBC, BMP, and a chest x-ray. The patient's catheter tip culture is pending. ASSESSMENT AND PLAN: For now I am going to continue with ceftaroline and get the results of the tests as I mentioned above. I think there will be a very good chance that the patient will be able to be discharged tomorrow back to the long-term. COMORBIDITIES: The patient is elderly and she lives in a long-term. She has a history of stroke, diabetes mellitus, and decreased mobilization and communication. cc: MD Wilfredo Welsh MD
[2019-03-23] MEDS: TEFLARO 600 MG in NS 250 ML IV SCH (03:09)
[2019-03-23] MEDS: DURAGESIC 25 MICROGM/HR PATCH TD SCH (05:55)
[2019-03-23 08:41] VITALS: BP 104/61
[2019-03-23] MEDS ORDERED: CEFTIN PO SCH (09:00)
[2019-03-23] MEDS ORDERED: OMNICEF LIQUID PO SCH (09:00)
--- NOTE | 2019-03-23 09:22 | DISCHARGE SUMMARY ---
ADMISSION DATE: 03/14/2019 DISCHARGE DATE: FINAL DISCHARGE DIAGNOSES: 1. Possible aspiration pneumonia. 2. Urinary tract infection. 3. Upper gastrointestinal bleed. 4. Flexion contracture of her upper and lower limbs. 5. Expressive aphasia. 6. Metabolic syndrome. 7. Hypothyroidism. 8. Gastritis and reflux disease. Ms. Begum is a 68-year-old patient, resident of [facility], admitted with possible upper GI bleeding and aspiration pneumonia. The patient on admission had leukocytosis. The patient is not able to give good history and we also entertained possibility of aspiration pneumonia. The patient was admitted. We gave her proton pump inhibitor IV supportive care and IV fluid. Her clinical condition stabilized and improved. The patient was treated with IV antibiotics. Infectious disease consultation obtained with Dr. Adame. Recommendation noted. The patient had CT scan of the abdomen and pelvis done, which did reveal bibasilar mild infiltrate consistent with pneumonia or atelectasis. Patient also have constipation but patient after that did have good bowel movement. At times, patient did have tachycardia. I started her on small dose of beta kasey. Overall patient is doing better. The patient received maximum benefit of hospitalization. Plan is to discharge her back to [facility]. Antibiotics as per Dr. Adame is going to recommend on admission paper. Will do aspiration precautions, change position frequently, resume previous [facility] orders. I am going to hold her Synthroid at this time. Continue oxygen. Dr. Campo will follow the patient. OBJECTIVE: Vital Signs: Her vital signs noted. Neck: Is supple. No JVD. Lungs: Bibasilar crepitations. Heart: S1 and S2 heard. Abdomen: Soft, scaphoid. PEG tube is in place. ROAST MASTER: Alert, awake and uncooperative for detailed exam. Overall discharge condition satisfactory. The patient's blood culture grew Staph epidermidis most likely due to contamination. Urine culture grew Providencia. Catheter tip there was no growth. cc: Wilfredo Campo MD
[2019-03-23] MEDS: ATIVAN PEG SCH (10:44)
[2019-03-23] MEDS: LACTULOSE GT SCH (10:44)
[2019-03-23] MEDS: TOPROL XL PO SCH (10:44)
[2019-03-23] MEDS: NEXIUM PACKET PEG SCH (10:44)
[2019-03-23] MEDS: ZOLOFT GT SCH (10:44)
[2019-03-23] MEDS: CALTRATE 600 + D GT SCH (10:44)
[2019-03-23] MEDS: PATIENT'S OWN MED TOP SCH (10:45)
== END 2019-03-23 13:12 | DRG 177 ==
LOC: SUPCPDRO → ED 04:11 → EDIPHOLD 11:27 → 3N 13:23
PROVIDERS: ADMIT Internal Medicine; ATTEND Internal Medicine